=== PATIENT | female | born 2000 | race Caucasian/White ===

== ENCOUNTER 2020-01-18 19:57 | Emergency (ER) | payer OTHER, SELFPAY ==
--- NOTE | ~2020-01-18 | CT_ITS ---
EXAMINATION: CT abdomen pelvis wo con DATE: 01/18/2020 20:37 INDICATION: Left flank pain TECHNIQUE: Computed tomography (CT) of the abdomen and pelvis was performed without intravenous contr ast. Automated exposure control and iterative reconstruction technique were employed. Exam dose: 133 8.75 mGy-cm total exam DLP. COMPARISON: None. FINDINGS: Normal heart size. No pericardial or pleural effusion. The liver, spleen, pancreas, and adrenal glands are unremarkable. No bile duct or pancreatic duct dil atation. There is a pinpoint nonobstructing left renal calculus. No other urinary tract calculus or hydrouret eronephrosis. No apparent renal space occupying mass lesion is evident on this limited noncontrast examination. Normal caliber of the abdominal aorta. No intraperitoneal or retroperitoneal or pelvic mass lesion or adenopathy or ascites. Normal appendix. No bowel obstruction or bowel wall thickening or pneumatosis. No intraperitoneal f ree air. The urinary bladder, uterus and adnexal areas are normal. Included skeletal structures are unremarkable. IMPRESSION: Pinpoint nonobstructing left renal calculus Reviewed, dictated and finalized at [facility]. Reviewed, dictated and finalized at [facility].
--- NOTE | ~2020-01-18 | CT_ITS ---
EXAMINATION: CTA chest DATE: 01/18/2020 21:51 INDICATION: Chest pain with inspiration TECHNIQUE: Computed tomography angiography (CTA) of the chest was performed with 100 mL Omnipaque-350 intravenous contrast timed to evaluate the pulmonary arteries. Coronal maximum intensity projection 3D-reconstructions were created by the technologist. Automated exposure control and iterative reconst ruction technique were employed. Exam dose: 788.58 mGy-cm total exam DLP. COMPARISON: None. FINDINGS: There is diagnostic contrast enhancement of the pulmonary arteries and no evidence of pulmo nary embolism. No thoracic aortic aneurysm or dissection. Normal heart size. No pericardial or pleural effusion. The lungs are clear of infiltrate or consolidation. No hilar or mediastinal mass lesion or lymphadenopathy. IMPRESSION: Negative examination Reviewed, dictated and finalized at [facility]. Reviewed, dictated and finalized at [facility]. IMPRESSION: Negative examination
[2020-01-18 20:03] VITALS: BP 151/106; PULSE 110; RESP 22; TEMP 36.4; O2SAT 100
--- NOTE | 2020-01-18 20:12 | ED.ABDPAIN ---
HPI - Abdominal Pain General Chief Complaint: Abdominal Pain Stated Complaint: abdominal pain Time Seen by Provider: 01/18/20 20:00 History of Present Illness HPI narrative: Patient is a 19-year-old female presents ER with abdominal pain. Sudden onset at 6:30 PM. Left upper quadrant and epigastrium. Radiates to her back. Sharp and stabbing. Associate with nausea and vomiting. No urinary symptoms. Has not had similar pain before. She had eaten about 15 minutes prior to onset of pain. Related Data Allergies Allergy/AdvReac Type Severity Reaction Status Date / Time No Known Allergies Allergy Verified 01/18/20 20:13 Review of Systems Review of Systems: All systems reviewed & are unremarkable except as noted in HPI and below Constitutional: Constitutional: Denies chills, Denies fever(s) and Denies weakness Gastrointestinal: Gastrointestinal: Reports abdominal pain, Denies diarrhea, Reports nausea and Reports vomiting Genitourinary: Genitourinary: Denies hematuria, Denies nocturia and Denies dysuria PMFSH Past Medical History Medical History (Updated 01/18/20 @ 22:34 by Juan M Álvarez MD) Healthy female adult Surgical History Surgical History (Updated 01/18/20 @ 20:16 by Juan M Álvarez MD) Hx of myringotomy Social History Social History (Updated 01/18/20 @ 20:16 by Juan M Álvarez MD) Smoking status: Never smoker Gender identity (if verbalized by the patient): Female Exam Narrative: Exam Narrative: GENERAL: Well-appearing, well-nourished, and in no acute distress. HEAD: Normocephalic, atraumatic. ENT:Mucous membranes moist. CHEST: Clear to auscultation. No respiratory distress. HEART: Tachycardic and regular. Normal peripheral pulses. ABDOMEN: Soft, mild tenderness to the LUQ w/o guarding, nondistended. EXTREMITIES: Normal range of motion. No edema. NEURO: Alert and oriented x3. PSYCH: Normal mood and affect. Course Course Emergency Course: Patient also feeling discomfort in her left back and pain is worse with deep breaths. Work-up has been unremarkable and she has persistent pain despite her receiving Toradol. Will rule out PE with CTA. Reevaluation(s) Reevaluation #1: W/u unremarkable. D/c home. Recommed gas-x. Date: 01/18/20 Time: 22:33 Vital Signs Vital signs: Vital Signs Temperature 97.5 F L 01/18/20 20:03 Pulse Rate 110 H 01/18/20 20:03 Respiratory Rate 22 H 01/18/20 20:03 Blood Pressure 151/106 H 01/18/20 20:03 Pulse Oximetry 100 01/18/20 20:03 Temperature 97.5 F L 01/18/20 20:03 Pulse Rate 75 01/18/20 21:36 Respiratory Rate 18 01/18/20 21:36 Blood Pressure 126/69 01/18/20 21:36 Pulse Oximetry 99 01/18/20 21:36 MDM - Abdominal Pain Lab Data Result diagrams: 01/18/20 20:13 01/18/20 20:13 Labs: Lab Results 01/18/20 01/18/20 01/18/20 Range/Units 20:13 20:13 20:30 WBC 13.0 H (4.5-10.0) K/mm3 RBC 4.64 (4.2-5.4) M/mm3 Hgb 13.0 (12.0-15.0) g/dL Hct 38.4 (37.0-47.0) % MCV 82.8 (80-100) fl MCH 28.0 (26-34) pg MCHC 33.9 (32-36) g/dl RDW 13.1 (11.5-14.5) % Plt Count 374 (150-375) k/mm3 MPV 10.2 (7.4-10.4) fl Immature Gran % (Auto) 0.3 (0-0.5) % Neut % (Auto) 58.3 (45.5-73.1) % Lymph % (Auto) 33.5 (18.3-44.2) % [place] % (Auto) 6.7 (2.6-8.5) % Eos % (Auto) 0.8 (0-4.4) % Baso % (Auto) 0.4 (0.2-1.2) % Lymph # (Auto) 4.34 H (0.9-3.2) K/mm3 [place] # (Auto) 0.9 H (0.1-0.6) K/mm3 Eos # (Auto) 0.1 (0-0.3) K/mm3 Baso # (Auto) 0.1 (0.0-0.1) K/mm3 Abs Immat Gran (auto) 0.04 H (0.00-0.031) K/mm3 Absolute Neuts (auto) 7.6 H (1.3-6.7) K/mm3 Absolute Nucleated RBC 0.0 (0.0-0.012) K/mm3 Nucleated RBC % 0.0 (0.0-0.2) % Atypical Lymphocytes Present Platelet Estimate Adequate (Adequate) Sodium 140 (137-145) mmol/L Potassium 3.8 (3.4-5.0) mmol/L Chloride 105 (98-107) mmol/L Carbon
[2020-01-18 20:20] LABS: Basophils Absolute Auto 0.1 K/mm3 (0.0-0.1); Basophils Percent Auto 0.4 % (0.2-1.2); Eosinophils Absolute Auto 0.1 K/mm3 (0-0.3); Eosinophils Percent Auto 0.8 % (0-4.4); Hematocrit 38.4 % (37.0-47.0); Immature Granulocyte Absolute 0.04 K/mm3 (0.00-0.031); Immature Granulocyte Percent A 0.3 % (0-0.5); Lymphocytes Absolute Auto 4.34 K/mm3 (0.9-3.2); Lymphocytes Percent Auto 33.5 % (18.3-44.2); Mean Corpuscular HGB Conc 33.9 g/dl (32-36); Mean Corpuscular Volume 82.8 fl (80-100); Mean Platelet Volume 10.2 fl (7.4-10.4); Monocytes Absolute Auto 0.9 K/mm3 (0.1-0.6); Monocytes Percent Auto 6.7 % (2.6-8.5); Neutrophils Absolute Auto 7.6 K/mm3 (1.3-6.7); Neutrophils Percent Auto 58.3 % (45.5-73.1); Platelet Count Result 374 k/mm3 (150-375); Red Blood Count 4.64 M/mm3 (4.2-5.4); Red Cell Distribution Width 13.1 % (11.5-14.5)
[2020-01-18] MEDS: ONDANSETRON INJ 4 MG/2 ML VIAL IV PUSH (20:25)
[2020-01-18] MEDS: SODIUM CHLORIDE 0.9% IV 1,000 ML 999 ML IV CONT (20:25)
[2020-01-18] MEDS: KETOROLAC 30 MG/ML VIAL (*BKC) IV PUSH (20:26)
[2020-01-18 20:32] LABS: Alanine Aminotransferase 24 U/L (4-35); Albumin Level 4.5 g/dL (3.5-5.1); Alkaline Phosphatase 70 U/L (38-126); Anion Gap 8 mmol/L (8-16); Aspartate Amino Transferase 24 U/L (14-36); Bilirubin,Total 0.2 mg/dL (0.2-1.3); Blood Urea Nitrogen 8 mg/dL (7-17); Calcium 9.2 mg/dL (8.4-10.2); Carbon Dioxide 27 mmol/L (22-30); Chloride 105 mmol/L (98-107); Estimated CRCL calculation 137 ml/min; Estimated Glomerular Filt Rate > 60; Glucose 98 mg/dL (65-105); Lipase 46 U/L (23-300); Potassium 3.8 mmol/L (3.4-5.0); Sodium 140 mmol/L (137-145)
[2020-01-18 20:36] LABS: Add Urine Microscopic? NO; Appearance Urine Clear (Clear); Bilirubin Urine Negative (Negative); Blood Urine Negative (Negative); Color Urine Straw (Yellow); Glucose Urine UA Negative (Negative); Ketones Urine Negative (Negative); Leukocyte Esterase Ur Negative LEU/UL (Negative); Nitrate Urine Negative (Negative); Protein Urine Negative (Negative); Specific Grav Ur 1.006 (1.001-1.035); Urobilinogen Urine Negative mg/dL (<2.0)
[2020-01-18 20:42] LABS: Atypical Lymphocytes Present; Platelet Estimate Adequate (Adequate)
[2020-01-18 21:36] VITALS: BP 126/69; PULSE 75; RESP 18; O2SAT 99
[2020-01-18] MEDS: MORPHINE SULFATE 4 MG/ML INJ IV PUSH (21:55)
[2020-01-18 22:46] VITALS: BP 124/67; PULSE 69; RESP 18; O2SAT 99
== END 2020-01-18 22:49 | disposition home or self-care (01) ==
PROVIDERS: Emergency Provider Emergency Medicine; PCP Physician Assistant
DX: R14.0 Abdominal distension (gaseous) (principal); R10.12 Left upper quadrant pain; R10.13 Epigastric pain
CPT/HCPCS: 36415; 71275; 74176; 80053; 81003; 81025; 83690; 85025; 96361; 96374; 96375; 99284; J1885; J2270; J2405; J7030; Q9967

== ENCOUNTER 2020-04-22 12:44 | Outpatient (CLI) | payer MEDICAID, SELFPAY ==
--- NOTE | ~2020-04-22 | US_ITS ---
EXAMINATION: US OB <= 14 weeks fetus DATE: 04/22/2020 13:17 INDICATION: Gestational dating TECHNIQUE: Real-time transabdominal and transvaginal obstetric ultrasound. FINDINGS: No prior studies for comparison. The uterus measures 9.9 x 7.5 x 5.9 cm. There is an intrauterine gestational sac, with pole nicole ntified. The crown rump length measures 2.87 cm, which correlates with a estimated gestational age o f 9 weeks 5 days. heart tones are identified measuring 173 BPM. The ovaries are within normal limits. IMPRESSION: 1. SL IUP with an EGA of 9 weeks, 5 days (EDC by current ultrasound of 11/20/2020). Reviewed, dictated and finalized at location B. N WASHER IMPRESSION: 1. SL IUP with an EGA of 9 weeks, 5 days (EDC by current ultrasound of 11/21/19 21).
== END 2020-04-22 12:45 | disposition home or self-care (01) ==
PROVIDERS: PCP Physician Assistant; Visit Provider Obstetrics & Gynecology
DX: Z34.91 Encounter for supervision of normal pregnancy, unspecified, first trimester (principal); Z3A.09 9 weeks gestation of pregnancy
CPT/HCPCS: 76801

== ENCOUNTER 2020-08-08 16:47 | Observation (INO) | payer OTHER, SELFPAY ==
--- NOTE | ~2020-08-08 | US_ITS ---
EXAMINATION: US OB follow up EXAM DATE: 08/08/2020 17:39 INDICATION: Estimated weight and well-being. Vaginal bleeding. 2nd trimester. TECHNIQUE: Pelvic obstetrical transabdominal sonogram was performed by a technologist. There are mu ltiple grayscale and Doppler images available for interpretation. Comparison is made to prior examina tion from 04/22/2020. FINDINGS: There is a single fetus identified in vertex presentation with a heart rate of 155 beats pe r minute. Placental tissue identified in anterior fundal position. There is no sonographic evidence of retroplacental hemorrhage identified. There is subjectively expected amount of amniotic fluid. BIOMETRIC DATA: Biparietal diameter (BPD): 6.5 cm ----------------> 26 weeks 1 day. Head circumference (HC): 22.1 cm ----------------> 24 weeks 1 day. Abdominal circumference (AC): 21.5 cm ----------> 26 weeks 0 days. Femur length (FL): 5.0 cm --------------------------> 27 weeks 0 days. These measurements are discordant, HC/AC ratio of 1.02. (The 5th -- 95th percentile range is 1.04-1. 22. Estimated weight is 904 g +/- 136 g. This is the 84th percentile when the currently reported c linical gestation age 25 weeks 1 day, clinical estimated date of delivery (OVIDIO-OPE) 11/20 is used. Feta l estimated gestational age based on measurements from this exam is 25 weeks 6 days, with an estimate d date of delivery (OVIDIO-AUA) 11/15. IMPRESSION: 1. Single fetus in vertex presentation with heart rate 155 beats per minute. 2. Estimated weight of 904 grams, 84th percentile using the currently reported clinical gestat ion age of 25 weeks 1 day, OVIDIO(OPE) 11/20. 3. HC/AC ratio 2 standard deviations below expected range. Reviewed, dictated and finalized at location A. IMPRESSION: 1. Single fetus in vertex presentation with heart rate 155 beats per minute. 2. Estimated weight of 904 grams, 84th percentile using the currently re ported clinical gestation age of 25 weeks 1 day, OVIDIO(OPE) 7/. 3. HC/AC ratio 2 standard deviations below expected range.
[2020-08-08 17:12] VITALS: BP 124/66; PULSE 89
--- NOTE | 2020-08-08 17:15 | PC.NURSE ---
called Dr Nam notified pt admission and clarification of order.ultrasound order received for well being and EFW. okay to discharge after confirmed baby well being.
--- NOTE | 2020-08-12 06:52 | PM.OBTRLD ---
OB - Triage/Final Diagnosis Visit Information Comments/Additional reasons for admission: I have assessed the risk for this patient, Justine Madrid, and determined that she would benefit from observation care. Final Diagnosis (1) Decreased movement: Code(s): O36.8190 - Decreased movements, unspecified trimester, not applicable or unspecified Status: Acute
== END 2020-08-08 18:00 | disposition home or self-care (01) ==
PROVIDERS: Admitting Provider Obstetrics & Gynecology; PCP Physician Assistant; Visit Provider Obstetrics & Gynecology
DX: O36.8130 Decreased fetal movements, third trimester, not applicable or unspecified (principal); Z3A.25 25 weeks gestation of pregnancy; Z37.0 Single live birth
CPT/HCPCS: 76816; G0378; G0379

== ENCOUNTER 2020-09-16 15:16 | Outpatient (CLI) | payer OTHER, SELFPAY ==
--- NOTE | ~2020-09-16 | US_ITS ---
EXAMINATION: US OB follow up DATE: 09/16/2020 15:47 INDICATION: Encounter for supervision of normal during third trimester TECHNIQUE: Real-time ultrasound of the pelvis was performed. The interpreting radiologist was not pre sent for the study. COMPARISON: 08/08/2020 FINDINGS: There is a single living fetus in vertex presentation. The placenta is anterior. heart rate is 155 beats per minute (bpm). The amniotic fluid index is 15.5 cm, which is normal (5th%-95%: 9.0-23. 4 cm at 30 weeks estimated gestational age) . The following biometric data were obtained: BPD: 7.5 cm -> 30 weeks 1 days Head circumference: 27.8 cm -> 30 weeks 3 days Abdominal circumference: 25.1 cm -> 29 weeks 2 days Femur length: 5.8 cm -> 30 weeks 1 days These measurements are concordant. Head circumference to abdominal circumference ratio: 1.11 (normal range 0.97-1.19). Estimated weight: 1450 g (+/-) 218 g. or 3 lbs. 3 oz. (+/-) 8 oz. IMPRESSION: 1. Single living fetus in vertex presentation with heart rate of 155 bpm. 2. Normal amniotic fluid index measuring 15.5 cm. 3. Estimated weight is 13th percentile by Hadlock criteria when 11/20/2020 is used as the estimat ed date of delivery (OVIDIO). Please correlate with clinical information or earlier ultrasounds for most accurate OVIDIO. Reviewed, dictated and finalized at location A. IMPRESSION: 1. Single living fetus in vertex presentation with heart rate of 155 bpm. 2. Normal amniotic fluid index measuring 15.5 cm. 3. Estimated weight is 13th percentile by Hadlock criteria when 11/20/2020 is used as the estimated date of delivery (OVIDIO). Please correlate with clinical information or earlier ultrasounds for most accurate OVIDIO.
== END 2020-09-16 15:17 | disposition home or self-care (01) ==
PROVIDERS: PCP Physician Assistant; Visit Provider Obstetrics & Gynecology
DX: Z34.90 Encounter for supervision of normal pregnancy, unspecified, unspecified trimester (principal); Z3A.00 Weeks of gestation of pregnancy not specified
CPT/HCPCS: 76816

== ENCOUNTER 2020-11-13 06:52 | Observation (INO) | payer OTHER, MEDICAID, SELFPAY ==
[2020-11-13 07:30] VITALS: BMI 43.7
--- NOTE | 2020-11-13 07:30 | OBADM ---
This patient, Justine Madrid, admitted to the OB room Labor/Delivery/Recovery 120 for observation. Patient/family oriented to hospital policies and general routines including ID bracelet, bed and alarms, visiting hours, pain management, procedures, bathroom and other care routines, personal items, smoking policy, room service/diet, and visiting hours. Patient/Family are encouraged to report perceived risks to care and to ask questions if they do not understand what they are told or what they should do. See OBIX for documentation.
--- NOTE | 2020-11-17 19:58 | PM.OBTRLD ---
OB - Triage/Final Diagnosis Visit Information Comments/Additional reasons for admission: I have assessed the risk for this patient, Justine Madrid, and determined that she would benefit from observation care. Final Diagnosis (1) False labor: Code(s): O47.9 - False labor, unspecified Status: Acute
--- NOTE | 2020-11-18 06:50 | P.HPUP_ITS ---
History and Physical Update Update Date/Time: 11/18/20 0650 History and Physical has been reviewed, including an updated exam of the patient. There are NO changes in the patient's condition. Risks, benefits, and alternatives have been discussed and questions answered. Patient agrees to proceed with procedure. 20 yo primigravida presents for elective primary c section for CPD as evaluated by abnormal pelvic index at [id number].She has a h/o of FGR, MTHFR, dep ression and obesity.Pelvimetry and ultrasound confirmed contracted pelvic outlet.i explained her condition procedure and risks including but not limited to bleeding infection injury to bladder bowel baby dvt pneumonia wound infection uti post hemorrhage endometritis and risk of anesthesia.
--- NOTE | 2020-11-18 08:47 | PM.IMHP ---
H&P: HPI History of Present Illness Date/Time: 11/17/20 20:02 20 yo primigravida presents for elective primary c section for CPD as evaluated by abnormal pelvic index at [id number].She has a h/o of FGR, MTHFR, depression and obesity.Pelvimetry and ultrasound confirmed contracted pelvic outlet.i explained her condition procedure and risks including but not limited to bleeding infection injury to bladder bowel baby dvt pneumonia wound infection uti post hemorrhage endometritis and risk of anesthesia. Chief Complaint: term cpd elective c section Review of Systems Review of Systems: All systems reviewed & are unremarkable except as noted in HPI and below Constitutional: Constitutional: Reports no additional constitutional complaints Eyes: Eyes: Reports no additional eye complaints ENT: Reports system reviewed and no additional complaints, except as documented Cardiovascular: Cardiovascular: Reports no additional cardiovascular complaints Respiratory: Respiratory: Reports no additional respiratory complaints Gastrointestinal: Gastrointestinal: Reports no additional gastrointestinal complaints Genitourinary: Genitourinary: Reports no additional female genitourinary complaints Musculoskeletal: Musculoskeletal: Reports no additional musculoskeletal complaints Integumentary/Breasts: Skin/Breast: Reports system reviewed and no additional complaints, except as docu Neurologic: Reports system reviewed and no additional complaints, except as documented Psychiatric: Psychiatric: Reports no additional psychiatric complaints Endocrine: Endocrine: Reports no additional endocrine complaints Hematologic/Lymphatic: Hematologic/Lymphatic: Reports no additional hematologic/lymphatic complaints Allergic/Immunologic: Allergic/Immunologic: Reports no additional allergic/immunologic complaints [facility] Past Medical History Medical History (Updated 11/17/20 @ 20:35 by Julius Nam MD) 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) KEENAN (generalized anxiety disorder) GBS (group B streptococcus) infection Healthy female adult MDD (major depressive disorder) Obesity, morbid Outlet contraction of pelvis Surgical History Surgical History Hx of myringotomy Family History Family History Father Diabetes mellitus Hypertension Mother Diabetes mellitus Hypertension Social History Social History (Updated 11/17/20 @ 20:28 by Julius Nam MD) Smoking status: Never smoker Substance use: never Living arrangements: with family Occupation/Education: occupation Additional occupation/education comments: [employer] Gender identity (if verbalized by the patient): Female Sexual Orientation (if Verbalized by the Patient): Straight or Heterosexual Spiritual care concerns: No Agree to blood products: Yes Meds Home Medications and Allergies Home Medications Medication Instructions Recorded Confirmed Type PNV cmb#95-ferrous fumarate-FA 1 tablet PO DAILY 10/21/20 11/13/20 History [] aspirin 81 mg PO DAILY 10/21/20 11/13/20 History folic acid 1 mg PO DAILY 10/21/20 11/13/20 History progesterone micronized 200 mg PO BID 10/21/20 11/13/20 History Allergies Allergy/AdvReac Type Severity Reaction Status Date / Time No Known Allergies Allergy Verified 01/18/20 20:13 Exam Const: General: cooperative, healthy appearing, comfortable, no acute distress, well developed, alert, awake and Physically active Nutritional Appearance: average body habitus and obese Orientation/consciousness: patient oriented x3 HENMT: Head: normal to inspection Eyes: General: appearance normal, both eyes and all related structures Neck: Neck: normal visual inspection and full ROM Chest: Chest palpation & inspection: normal inspection of the chest Breast/ax
--- NOTE | 2020-11-18 08:48 | WPDOBADMIT ---
Obstetrics - Admit Note Admission Note: record reviewed. No pertinent additions to the history and/or any subsequent changes in the physical findings that are not consistent with the expected course of the were found. Additions to the history and/or subsequent changes in the physical findings follow. None. 20 yo primigravida presents for elective primary c section for CPD as evaluated by abnormal pelvic index at [id number].She has a h/o of FGR, MTHFR, depression and obesity.Pelvimetry and ultrasound confirmed contracted pelvic outlet.i explained her condition procedure and risks including but not limited to bleeding infection injury to bladder bowel baby dvt pneumonia wound infection uti post hemorrhage endometritis and risk of anesthesia.
--- NOTE | 2020-11-18 08:49 | PM.OBPRVD ---
OB - Delivery Note Procedure Delivery date: 11/18/20 Procedure: primary low-transverse section with delivery of viable and placenta Intrapartal events: Ceph-Pelvic Disproportion Induction method: none Delivery monitor: none Route of delivery: Episiotomy description: None Laceration Description: None Specimen: Yes Anesthesia type: Spinal Disposition: floor
--- NOTE | 2020-11-18 08:50 | W.PM.PROC2 ---
Procedure Note - Detailed Date of Procedure 11/18/20 Pre-op Diagnosis 1) Term : Code(s): Z34.90 - Encounter for supervision of normal , unspecified, unspecified trimester Status: Acute (2) CPD (cephalo-pelvic disproportion): Code(s): O33.9 - Maternal care for disproportion, unspecified Status: Acute (3) Outlet contraction of pelvis: Code(s): O33.3XX0 - Maternal care for disproportion due to outlet contraction of pelvis, not applicable or unspecified Status: Acute (4) Compound heterozygous MTHFR mutation [id number]/[id number]: Code(s): Z15.89 - Genetic susceptibility to other disease Status: Acute (5) Obesity, morbid: Code(s): E66.01 - Morbid (severe) obesity due to excess calories Status: Acute (6) GBS (group B streptococcus) infection: Code(s): A49.1 - Streptococcal infection, unspecified site Status: Acute (7) Delivery by elective section: Code(s): Post-op Diagnosis same (1) Term : Code(s): Z34.90 - Encounter for supervision of normal , unspecified, unspecified trimester Status: Acute (2) CPD (cephalo-pelvic disproportion): Code(s): O33.9 - Maternal care for disproportion, unspecified Status: Acute (3) Outlet contraction of p) Procedure Performed primary low-transverse section with delivery of viable infant and placenta Surgeon Julius Nam MD Reproduction Production Manager surgical scrub technologist x2 Anesthesia spinal ( Duramorph) Indications CPD abnormal pelvic index radiographic pelvimetry and ultrasound confirmed Implants none Drains Yes ( Munoz) Packing No Pathology yes ( placenta, cord blood gases, cord blood) Complications None Condition stable Disposition floor
--- NOTE | 2020-11-18 08:54 | PM.OBDSVD ---
DS: Admitting Diagnosis Admitting Diagnosis Admitting Diagnosis: 1) Term : Code(s): Z34.90 - Encounter for supervision of normal , unspecified, unspecified trimester Status: Acute (2) CPD (cephalo-pelvic disproportion): Code(s): O33.9 - Maternal care for disproportion, unspecified Status: Acute (3) Outlet contraction of pelvis: Code(s): O33.3XX0 - Maternal care for disproportion due to outlet contraction of pelvis, not applicable or unspecified Status: Acute (4) Compound heterozygous MTHFR mutation C677T/[id number]: Code(s): Z15.89 - Genetic susceptibility to other disease Status: Acute (5) Obesity, morbid: Code(s): E66.01 - Morbid (severe) obesity due to excess calories Status: Acute (6) GBS (group B streptococcus) infection: Code(s): A49.1 - Streptococcal infection, unspecified site Status: Acute (7) Delivery by elective section: Code(s): DS: Discharge Diagnosis Discharge Diagnosis (1) Term delivered: Code(s): O80 - Encounter for full-term uncomplicated delivery Status: Acute (2) CPD (cephalo-pelvic disproportion): Code(s): O33.9 - Maternal care for disproportion, unspecified Status: Acute (3) Delivery by elective section: Code(s): O82 - Encounter for delivery without indication Status: Acute (4) Outlet contraction of pelvis: Code(s): O33.3XX0 - Maternal care for disproportion due to outlet contraction of pelvis, not applicable or unspecified Status: Acute (5) FGR ( growth retardation): Status: Acute (6) KEENAN (generalized anxiety disorder): Code(s): F41.1 - Generalized anxiety disorder Status: Acute (7) MDD (major depressive disorder): Code(s): F32.9 - Major depressive disorder, single episode, unspecified Status: Acute (8) GBS (group B streptococcus) infection: Code(s): A49.1 - Streptococcal infection, unspecified site Status: Acute (9) Obesity, morbid: Code(s): E66.01 - Morbid (severe) obesity due to excess calories Status: Acute (10) Compound heterozygous MTHFR mutation C677T/J4160V: Code(s): Z15.89 - Genetic susceptibility to other disease Status: Acute OB - DS: Summary Hospital Course Time spent discussing smoking cessation with patient: 3 to 10 minutes OB Procedures : Ultrasound OB Procedures Intrapartum: ( primary elective) low cervical, transverse and GBS prophylaxis OB Procedures: : None Peripartum Data Infant Delivery Method: Section ( primary low-transverse elective) Laceration Description: None Episiotomy description: None complications: none 1: Disposition of : home Time Spent with Patient Time attestation: Total time spent providing and/or coordinating discharge services: Discharge Plan Discharge Attending physician on discharge: Julius Nam Discharging Clinician: Julius Nam Patient Disposition: Home, Self-Care Activity: as tolerated Diet: other - see discharge instructions Discharge Instructions: OB ANTEPARTUM DISCHARGE INSTRUCTIONS This information is given to help you properly care for yourself at home after your discharge from the hospital. Follow these instructions until your doctor tells you otherwise. DIET: May eat light meals while still contractin. If contractions become irregular may go back to eating Three Well Balanced Meals per Day Drink at Least Eight 8-Ounce Glasses of Caffeine-Free Beverages Daily ACTIVITY: As Tolerated RETURN TO LABOR AND DELIVERY IF YOU HAVE: Any Change In Baby's Normal Movement Pattern Any Leakage of Fluid Contractions 3-5 Minutes Apart OR Increasing Intensity Vaginal Bleeding Contractions may feel like abdominal pain, tightening, cramping, pressure, back ache, or thigh ache. OTHER INSTRUCTIONS:
== END 2020-11-13 10:26 | disposition home or self-care (01) ==
PROVIDERS: Admitting Provider Obstetrics & Gynecology; PCP Physician Assistant; Visit Provider Obstetrics & Gynecology
DX: O47.9 False labor, unspecified (principal); Z3A.00 Weeks of gestation of pregnancy not specified
CPT/HCPCS: G0378; G0379

== ENCOUNTER 2020-11-18 06:52 | Inpatient (IN) | payer OTHER, MEDICAID, SELFPAY ==
--- NOTE | 2020-11-17 20:35 | HP_ITS ---
This report was moved to the correct visit, [id number] on 11/18/20. Original report was signed by Julius Nam MD on 11/18/20 0650. ADDENDUM update v code Addendum Documented By: Julius Nam MD 11/18/20 0848 Addendum Signed By: <Electronically signed by Julius Nam MD>11/18 0848 H&P: HPI History of Present Illness Date/Time: 11/17/20 20:02 20 yo primigravida presents for elective primary c section for CPD as evaluated by abnormal pelvic index at 72lvs0m.She has a h/o of FGR, MTHFR, depression and obesity.Pelvimetry and ultrasound confirmed contracted pelvic outlet.i explained her condition procedure and risks including but not limited to bleeding infection injury to bladder bowel baby dvt pneumonia wound infection uti post hemorrhage endometritis and risk of anesthesia. Chief Complaint: term cpd elective c section Review of Systems Review of Systems: All systems reviewed & are unremarkable except as noted in HPI and below Constitutional: Constitutional: Reports no additional constitutional complaints Eyes: Eyes: Reports no additional eye complaints ENT: Reports system reviewed and no additional complaints, except as documented Cardiovascular: Cardiovascular: Reports no additional cardiovascular complaints Respiratory: Respiratory: Reports no additional respiratory complaints Gastrointestinal: Gastrointestinal: Reports no additional gastrointestinal complaints Genitourinary: Genitourinary: Reports no additional female genitourinary complaints Musculoskeletal: Musculoskeletal: Reports no additional musculoskeletal complaints Integumentary/Breasts: Skin/Breast: Reports system reviewed and no additional complaints, except as docu Neurologic: Reports system reviewed and no additional complaints, except as documented Psychiatric: Psychiatric: Reports no additional psychiatric complaints Endocrine: Endocrine: Reports no additional endocrine complaints Hematologic/Lymphatic: Hematologic/Lymphatic: Reports no additional hematologic/lymphatic complaints Allergic/Immunologic: Allergic/Immunologic: Reports no additional allergic/immunologic complaints [facility] Past Medical History Medical History (Updated 11/17/20 @ 20:35 by Julius Nam MD) Compound heterozygous MTHFR mutation 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) KEENAN (generalized anxiety disorder) GBS (group B streptococcus) infection Healthy female adult MDD (major depressive disorder) Obesity, morbid Outlet contraction of pelvis Surgical History Surgical History Hx of myringotomy Family History Family History Father Diabetes mellitus Hypertension Mother Diabetes mellitus Hypertension Social History Social History (Updated 11/17/20 @ 20:28 by Julius Nam MD) Smoking status: Never smoker Substance use: never Living arrangements: with family Occupation/Education: occupation Additional occupation/education comments: [employer] Gender identity (if verbalized by the patient): Female Sexual Orientation (if Verbalized by the Patient): Straight or Heterosexual Spiritual care concerns: No Agree to blood products: Yes Meds Home Medications and Allergies Home Medications Medication Instructions Recorded Confirmed Type PNV cmb#95-ferrous fumarate-FA 1 tablet PO DAILY 10/21/20 11/13/20 History
[2020-11-18] VITALS (64 sets, daily range): BP systolic 100–143; BP diastolic 49–100; PULSE 56–291; RESP 16–18; TEMP 36.2–36.8; O2SAT 83–100; BMI 44.3
--- NOTE | 2020-11-18 06:50 | HP_ITS ---
This report was moved to the correct visit, [id number] on 11/18/20. Original report was signed by Julius Nam MD on 11/17/20650. History and Physical Update Update Date/Time: 11/18/20649 History and Physical has been reviewed, including an updated exam of the patient. There are NO changes in the patient's condition. Risks, benefits, and alternatives have been discussed and questions answered. Patient agrees to proceed with procedure. 20 yo primigravida presents for elective primary c section for CPD as evaluated by abnormal pelvic index at 32zyu1t.She has a h/o of FGR, MTHFR, depression and obesity.Pelvimetry and ultrasound confirmed contracted pelvic outlet.i explained her condition procedure and risks including but not limited to bleeding infection injury to bladder bowel baby dvt pneumonia wound infection uti post hemorrhage endometritis and risk of anesthesia. This dictation may have been done utilizing a voice recognition system. Attempts have been made to correct errors. However, there may be uncorrected grammatical, spelling, and recognition errors present. Report Initialized date/time: Julius Nam MD 11/17/202038 Electronically signed by: Julius Nam MD 11/18/20650 [facility]
[2020-11-18] MEDS: LACTATED RINGERS 1,000 ML 125 ML IV CONT ×2 (07:34→08:38)
[2020-11-18 07:35] LABS: Basophils Percent Auto 0.3 % (0.2-1.2); Eosinophils Absolute Auto 0.1 K/mm3 (0-0.3); Eosinophils Percent Auto 0.7 % (0-4.4); Hematocrit 35.5 % (37.0-47.0); Hemoglobin 12.2 g/dL (12.0-15.0); Immature Granulocyte Absolute 0.08 K/mm3 (0.00-0.031); Immature Granulocyte Percent A 0.6 % (0-0.5); Lymphocytes Absolute Auto 2.91 K/mm3 (0.9-3.2); Lymphocytes Percent Auto 20.9 % (18.3-44.2); Mean Corpuscular HGB Conc 34.4 g/dl (32-36); Mean Corpuscular Hemoglobin 29.4 pg (26-34); Mean Corpuscular Volume 85.5 fl (80-100); Mean Platelet Volume 11.2 fl (7.4-10.4); Monocytes Absolute Auto 0.9 K/mm3 (0.1-0.6); Monocytes Percent Auto 6.2 % (2.6-8.5); Neutrophils Absolute Auto 9.9 K/mm3 (1.3-6.7); Neutrophils Percent Auto 71.3 % (45.5-73.1); Platelet Count Result 254 k/mm3 (150-375); Red Blood Count 4.15 M/mm3 (4.2-5.4); Red Cell Distribution Width 13.5 % (11.5-14.5); White Blood Count 13.9 K/mm3 (4.5-10.0)
--- NOTE | 2020-11-18 07:39 | LDADM ---
This patient, Justine Madrid, was admitted to Labor/Delivery/Recovery 119 on 11/18/20 at 06:52. Plans for labor, pain management and were discussed with patient. Patient/family oriented to hospital policies and general routines including ID bracelet, bed and alarms, visiting hours, pain management, procedures, bathroom and other care routines, personal items, smoking policy, room service/diet and guest tray routines, security routines, and visiting hours. Patient/Family are encouraged to report perceived risks to care and to ask questions if they do not understand what they are told or what they should do. See OBIX for further documentation.
--- NOTE | 2020-11-18 08:25 | WPDANESEPPF ---
Anes - Initial Pre Proc Eval Procedure: Operation Date: 11/18/20 09:00 Proposed Procedures p Primary Section - Julius Nam MD Date/Time: 11/18/20 08:25 Surgeon: Julius Nam MD Pre Op Diagnosis: C Section Patient Data Age: 20 Gender: F Height: 1.68 m Weight: 124.5 kg Last Vital Signs Pulse 91 11/18/20 07:46 BP 137/90 11/18/20 07:46 Allergies Allergy/AdvReac Type Severity Reaction Status Date / Time No Known Allergies Allergy Verified 01/18/20 20:13 Home Medications Medication Instructions Recorded Confirmed Type PNV cmb#95-ferrous fumarate-FA 1 tablet PO DAILY 10/21/20 11/18/20 History [] aspirin 81 mg PO DAILY 10/21/20 11/18/20 History folic acid 1 mg PO DAILY 10/21/20 11/18/20 History progesterone micronized 200 mg PO BID 10/21/20 11/18/20 History Laboratory Tests 11/18/20 11/18/20 11/18/20 07:23 07:23 07:23 WBC 13.9 K/mm3 H K/mm3 (4.5-10.0) RBC 4.15 M/mm3 L M/mm3 (4.2-5.4) Hgb 12.2 g/dL g/dL (12.0-15.0) Hct 35.5 % L % (37.0-47.0) MCV 85.5 fl fl (80-100) MCH 29.4 pg pg (26-34) MCHC 34.4 g/dl g/dl (32-36) RDW 13.5 % % (11.5-14.5) Plt Count 254 k/mm3 k/mm3 (150-375) MPV 11.2 fl H fl (7.4-10.4) Immature Gran % (Auto) 0.6 % H % (0-0.5) Neut % (Auto) 71.3 % % (45.5-73.1) Lymph % (Auto) 20.9 % % (18.3-44.2) [place] % (Auto) 6.2 % % (2.6-8.5) Eos % (Auto) 0.7 % % (0-4.4) Baso % (Auto) 0.3 % % (0.2-1.2) Lymph # (Auto) 2.91 K/mm3 K/mm3 (0.9-3.2) [place] # (Auto) 0.9 K/mm3 H K/mm3 (0.1-0.6) Eos # (Auto) 0.1 K/mm3 K/mm3 (0-0.3) Baso # (Auto) 0.0 K/mm3 K/mm3 (0.0-0.1) Abs Immat Gran (auto) 0.08 K/mm3 H K/mm3 (0.00-0.031) Absolute Neuts (auto) 9.9 K/mm3 H K/mm3 (1.3-6.7) Absolute Nucleated RBC 0.0 K/mm3 K/mm3 (0.0-0.012) Nucleated RBC % 0.0 % % (0.0-0.2) RPR Pending HIV 1&2 Ab/P24 Ag 4thGn Pending Patient hx anesthesia problems: none Family hx anesthesia problems: none [facility] Past Medical History Medical History (Updated 11/18/20 @ 08:25 by Paramjit Iverson MD) Compound heterozygous MTHFR mutation [id number] FGR ( growth retardation) KEENAN (generalized anxiety disorder) GBS (group B streptococcus) infection MDD (major depressive disorder) Obesity, morbid Outlet contraction of pelvis Surgical History Surgical History Hx of myringotomy Family History Family History Father Diabetes mellitus Hypertension Mother Diabetes mellitus Hypertension Social History Social History Smoking status: Never smoker Second hand tobacco smoke exposure: Yes Substance use: never Additional occupation/education comments: [employer] Gender identity (if verbalized by the patient): Female Spiritual care concerns: No Agree to blood products: Yes Anes - Eval Final PreProcedure Day of Procedure 11/18/20 08:25 Patient weight: morbidly obese Heart: regular rate and rhythm Lungs: clear to auscultation Airway: Mallampati scale class 1 Neurological: alert and oriented Last oral intake: >/= 8 hours ASA classification: III Emergent: no Anesthetic plan: proceed Anesthesia type and monitoring: regional spinal and standard monitoring Informed Consent: The patient's anesthetic plan and its attendant risks and benefits were discussed with the patient/family/POA. Questions were solicited and answers provided to the satisfaction of the patient/family/POA.
[2020-11-18 08:26] LABS: HIV 1/2 Ab P24 Ag Result Negative (Negative)
[2020-11-18] MEDS: ceFAZolin 3 GM/D5W 100 ML 100 ML IVPB (09:02)
[2020-11-18 09:21] LABS: Amphetamine Screen Urine Negative (Negative); Barbiturate Screen Urine Negative (Negative); Benzodiazepines Screen Urine Negative (Negative); Cannabinoid Screen Urine Negative (Negative); Cocaine Screen Urine Negative (Negative); Methadone Screen Urine Negative (Negative); Opiate Screen Urine Negative (Negative); Phencyclidine Screen Urine Negative (Negative)
--- NOTE | 2020-11-18 10:17 | PM.OBPRVD ---
OB - Delivery Note Procedure Delivery date: 11/18/20 Procedure: Procedures Operation Date: 11/18/20 09:00 Actual Procedure Side Surgeon Primary low-transverse section with delivery of viable female and placenta Julius Nam MD events: Meconium Stained Fluid Intrapartal events: Ceph-Pelvic Disproportion Induction method: none Delivery monitor: external FHT and external uterine Route of delivery: ( primary low-transverse elective) Episiotomy description: None Laceration Description: None Specimen: Yes ( placenta, cord blood, cord blood gases) Quantitative Blood Loss (ml): 325 Anesthesia type: Spinal ( Duramorph) Disposition: floor Complications: none Narrative: see detailed report Baby Date of : 11/18/20 Time of : 09:39 Weeks of gestation at delivery: 40 gender: Female Weight (pounds): 6 Weight (ounces): 10 presentation: vertex position: Left Occiput Transverse Placenta delivery description: Manual Removal and Normal Configuration cord vessel description: 3 Vessels, Nuchal Cord and Around Body x1 score one minute: 9 score five minutes: 9 Narrative: meconium stained amniotic fluid taken to the nursery in stable condition normal transition
--- NOTE | 2020-11-18 10:20 | W.PM.PROC2 ---
Procedure Note - Detailed Date of Procedure 11/18/20 Pre-op Diagnosis C Section (1) Term : Code(s): Z34.90 - Encounter for supervision of normal , unspecified, unspecified trimester Status: Acute (2) CPD (cephalo-pelvic disproportion): Code(s): O33.9 - Maternal care for disproportion, unspecified Status: Acute (3) Outlet contraction of pelvis: Code(s): O33.3XX0 - Maternal care for disproportion due to outlet contraction of pelvis, not applicable or unspecified Status: Acute (4) Compound heterozygous MTHFR mutation C677T/F5037T: Code(s): Z15.89 - Genetic susceptibility to other disease Status: Acute (5) Obesity, morbid: Code(s): E66.01 - Morbid (severe) obesity due to excess calories Status: Acute (6) GBS (group B streptococcus) infection: Code(s): A49.1 - Streptococcal infection, unspecified site Status: Acute (7) Delivery by elective section: Code(s): O82 - Encounter for delivery without indication Status: Acute Post-op Diagnosis same ((1) Term : Code(s): Z34.90 - Encounter for supervision of normal , unspecified, unspecified trimester Status: Acute (2) CPD (cephalo-pelvic disproportion): Code(s): O33.9 - Maternal care for disproportion, unspecified Status: Acute (3) Outlet contraction of ) Procedure Performed primary low-transverse section with delivery of viable female infant and placenta Surgeon Julius Nam MD Parts And Service Manager surgical services director x2 Padma and Heather Anesthesia spinal ( Duramorph) Indications abnormal pelvic index with cephalopelvic disproportion contracted pelvis outlet Findings viable female infant born at 9:39 a.m. on 11/18 2020 meconium stained amniotic fluid and membranes nuchal cord x1 cord around the body x1 spontaneous respirations and cry no observed abnormalities on the examination normal transition scores 9 and 9 at 1 and 5 minutes weight 6 lb 10 oz length 18-1/2 inches long Normal uterus tubes and ovaries Hemostasis excess VTE prevention SCD Antibiotic prophylaxis Ancef 3 g Counts correct Complications none Pathology specimen sent Patient taken to recovery room stable condition Description of Procedure informed consent obtained patient taken to the operating room where she was given a spinal anesthetic with Duramorph placed in the supine position a Munoz catheter was then placed and then a traxi device was placed in the abdomen after the abdomen was prepped and then the abdomen was draped in the usual sterile fashion. A time-out was then performed. The abdomen was tested for adequate anesthesia. A Pfannenstiel incision was then made to the skin and the abdomen was opened in layers hemostasis obtained by cauterization the fascia was entered bilateral undermined superior and inferior then the rectus muscles were in the midline and the peritoneum was entered using blunt dissection. The vesicouterine peritoneal reflection was incised transversely 8 transverse incision was made to the uterus and extended bilaterally digitally. Rupture membranes revealed meconium stained amniotic fluid. With fundal pressure vertex was then delivered via the abdominal incision with a nuchal cord x1 and the cord around the arm reduced. The nose and throat were bulb suction there spontaneous respirations and cry cord was clamped and cut and the was handed to the nursery nurse in attendance scores 9 and 9 weight 610 18-1/2 inches long taken to the nursery in stable condition skin to skin contact given. Cord gases cord blood obtained placenta was then delivered intact with three-vessel cord the uterus contracted well with Pitocin given intravenously and 10 units into the myometrium. Blood clots membranes removed from the intrauterine cavity with the uterus externalized the uterine incision was then repaired in 2 layer
[2020-11-18] MEDS: OXYTOCIN 30 UNITS/NS 500 ML 30 UNITS/500 ML BAG 125 UNITS IV CONT (10:43)
[2020-11-18 11:50] LABS: Rapid Plasma Reagin Non-Reactive (NonReactive)
[2020-11-18] MEDS: KETOROLAC 30 MG/ML VIAL (*BKC) IV PUSH ×2 (11:58→19:20)
[2020-11-18] MEDS: fentaNYL CITRATE INJ (*CRX) 100 MCG/2 ML VIAL 25 MCG IV PUSH (11:59)
--- NOTE | 2020-11-18 13:45 | PC.NURSE ---
1300-Patient transferred to post room #285 via stretcher. Support person present. Oriented to unit, room, information board, rooming in, admission packet and security measures. Patient verbalizes understanding.
--- NOTE | 2020-11-18 15:06 | PC.NURSE ---
Consult with pt., mother reports she would like to begin pumping.
--- NOTE | 2020-11-18 15:42 | PC.NURSE ---
Breast pump provided due to mother's wishes. Instructions given on breast pump care and usage, pumping schedule, nipple care, and collection and storage of breast milk. Encouraged [id number], breast massage and manual expression to stimulate supply. Assessed patient for correct flange size, placement and draw. Patient verbalizes and demonstrates understanding of instructions.
[2020-11-18] MEDS: DEXTROSE 5%/0.45% SOD CHL 1,000 ML 125 ML IV CONT (15:44)
[2020-11-18] MEDS: diphenhydrAMINE HCl INJ 50 MG/ML VIAL 25 MG IV PUSH (15:50)
[2020-11-18] MEDS: DOCUSATE SODIUM 100 MG CAPSULE PO (17:37)
[2020-11-19 03:40] VITALS: BP 106/60; PULSE 69; RESP 16; TEMP 36.3
[2020-11-19] MEDS: KETOROLAC 30 MG/ML VIAL (*BKC) IV PUSH (03:40)
[2020-11-19 05:26] LABS: Basophils Percent Auto 0.2 % (0.2-1.2); Eosinophils Absolute Auto 0.1 K/mm3 (0-0.3); Eosinophils Percent Auto 0.4 % (0-4.4); Hematocrit 31.6 % (37.0-47.0); Hemoglobin 10.4 g/dL (12.0-15.0); Immature Granulocyte Absolute 0.09 K/mm3 (0.00-0.031); Immature Granulocyte Percent A 0.7 % (0-0.5); Lymphocytes Absolute Auto 1.94 K/mm3 (0.9-3.2); Mean Corpuscular HGB Conc 32.9 g/dl (32-36); Mean Corpuscular Hemoglobin 29.5 pg (26-34); Mean Corpuscular Volume 89.5 fl (80-100); Mean Platelet Volume 11.4 fl (7.4-10.4); Monocytes Absolute Auto 0.8 K/mm3 (0.1-0.6); Neutrophils Absolute Auto 10.1 K/mm3 (1.3-6.7); Neutrophils Percent Auto 77.7 % (45.5-73.1); Platelet Count Result 204 k/mm3 (150-375); Red Blood Count 3.53 M/mm3 (4.2-5.4); Red Cell Distribution Width 13.8 % (11.5-14.5)
[2020-11-19 08:00] VITALS: BP 114/62; PULSE 95; RESP 16; TEMP 36.9; O2SAT 99
--- NOTE | 2020-11-19 08:14 | WPDANLDPN2 ---
Anes-Prog Note L&D Date/Time: 11/19/20 08:14 Comfortable throughout: section Neuraxial method: spinal Epidural/Spinal procedure site: clean & non-tender Neuro status: Neuro function grossly intact. Cardiovascular status: normal Respiratory status: normal Airway patency: baseline Mental status: baseline Post-Op hydration status: normal Vital Signs: Last Vital Signs Temp 36.9 C 11/19/20 08:00 Pulse 95 11/19/20 08:00 Resp 16 11/19/20 08:00 BP 114/62 11/19/20 08:00 Pulse Ox 99 11/19/20 08:00 Pain score (VAS): 0/10. Patient resting in bed at time of assessment, appears comfortable. Support person at bedside. I/O: Intake & Output 11/18/20 11/19/20 11/19/20 23:59 07:59 15:59 Intake Total 1135 Output Total 800 1999 Balance 335 -2000 Post-procedural complaints: none Patient feedback: Patient satisfied with anesthetic care.
--- NOTE | 2020-11-19 08:15 | WPDANLDNPN2 ---
Anes-Prog Note L&D-Neuraxial Date/Time: 11/19/20 08:15 Neuraxial medications: intrathecal PF morphine Opiod-related complaints: none Patient feedback: Patient satisfied with post-operative pain management.
--- NOTE | 2020-11-19 08:41 | PM.OBPNVD ---
OB - PN: Subj Subjective Date/time seen: 11/19/20 08:41 Patient comments: no complaints, pain well controlled, tolerating diet and flatus present baby status: doing well and nursing well [place] feeding status: exclusively breast feeding OB - PN: Obj Data Labs CBC & Chem 7: 11/19/20 03:49 Labs: Laboratory Results - last 24 hr 11/18/20 11/18/20 11/18/20 07:23 07:23 08:58 WBC RBC Hgb Hct MCV MCH MCHC RDW Plt Count MPV Immature Gran % (Auto) Neut % (Auto) Lymph % (Auto) [place] % (Auto) Eos % (Auto) Baso % (Auto) Lymph # (Auto) [place] # (Auto) Eos # (Auto) Baso # (Auto) Abs Immat Gran (auto) Absolute Neuts (auto) Absolute Nucleated RBC Nucleated RBC % Urine Opiates Screen Negative Urine Methadone Screen Negative Ur Barbiturates Screen Negative Ur Phencyclidine Scrn Negative Ur Amphetamine Screen Negative U Benzodiazepines Scrn Negative Urine Cocaine Screen Negative U Cannabinoids Screen Negative RPR Non-reactive Blood Type A Positive Antibody Screen Negative 11/19/20 03:49 WBC 13.0 H RBC 3.53 L Hgb 10.4 L Hct 31.6 L MCV 89.5 MCH 29.5 MCHC 32.9 RDW 13.8 Plt Count 204 MPV 11.4 H Immature Gran % (Auto) 0.7 H Neut % (Auto) 77.7 H Lymph % (Auto) 15.0 L [place] % (Auto) 6.0 Eos % (Auto) 0.4 Baso % (Auto) 0.2 Lymph # (Auto) 1.94 [place] # (Auto) 0.8 H Eos # (Auto) 0.1 Baso # (Auto) 0.0 Abs Immat Gran (auto) 0.09 H Absolute Neuts (auto) 10.1 H Absolute Nucleated RBC 0.0 Nucleated RBC % 0.0 Urine Opiates Screen Urine Methadone Screen Ur Barbiturates Screen Ur Phencyclidine Scrn Ur Amphetamine Screen U Benzodiazepines Scrn Urine Cocaine Screen U Cannabinoids Screen RPR Blood Type Antibody Screen OB - PN A/P Assessment and Plan (1) Term delivered: Code(s): O80 - Encounter for full-term uncomplicated delivery Status: Acute (2) Delivery by elective section: Code(s): O82 - Encounter for delivery without indication Status: Acute (3) CPD (cephalo-pelvic disproportion): Code(s): O33.9 - Maternal care for disproportion, unspecified Status: Acute Plan day: 1 Plan: routine care, discharge home and follow up 6 weeks Time Spent With Patient Time: Total time spent is greater than 50% in coordination of care (as documented) at patient's floor/unit and/or counseling patient: Time with patient: less than 15 minutes Review of Systems Review of Systems: All systems reviewed & are unremarkable except as noted in HPI and below Exam Const: General: cooperative, healthy appearing, comfortable, no acute distress, well developed, alert, awake and Physically active Nutritional Appearance: obese Orientation/consciousness: patient oriented x3 Limitations: no limitations HENMT: Head: normal to inspection Eyes: General: appearance normal, both eyes and all related structures Neck: Neck: normal visual inspection and full ROM Chest: Chest palpation & inspection: normal inspection of the chest Breast/axilla inspection: normal inspection of the breasts Resp: Effort & Inspection: normal respiratory effort Auscultation: clear to auscultation bilaterally Cardio: Rate: regular rate Rhythm: regular rhythm GI: Inspection: normal to inspection, incision (ddi) and obesity GI Palp: Yes Soft to palpation Percussion: Yes normal to percussion Auscultation: normal bowel sounds : External Female Exam: normal external appearance Bimanual exam- vagina & uterus: non-tender Back/Spine/Pelvis: Back: no CVA tenderness Skin: General skin exam: normal color Neuro: General: patient oriented x3, gait normal, tone normal, moves all extremities, Normal light touch and pain sensation and no focal motor deficits Extrem: General: normal to inspection, full ROM and n
[2020-11-19] MEDS: HYDROcodone/acetaminophen (*CRX) 5-325 MG TABLET 1 TAB PO (08:43)
[2020-11-19] MEDS: DOCUSATE SODIUM 100 MG CAPSULE PO (08:43)
[2020-11-19] MEDS: IBUPROFEN 600 MG TABLET PO ×3 (10:29→23:05)
[2020-11-19] MEDS: SIMETHICONE 80 MG TAB.CHEW PO ×3 (10:30→23:05)
[2020-11-19] MEDS: HYDROcodone/acetaminophen (*CRX) 10-325 MG TABLET 1 TAB PO ×3 (15:44→23:05)
[2020-11-19 19:10] VITALS: BP 129/77; PULSE 95; RESP 16; TEMP 36.7
[2020-11-20] MEDS: HYDROcodone/acetaminophen (*CRX) 10-325 MG TABLET 1 TAB PO (02:34)
[2020-11-20] MEDS: SIMETHICONE 80 MG TAB.CHEW PO ×2 (02:34→08:29)
[2020-11-20] MEDS: DOCUSATE SODIUM 100 MG CAPSULE PO (08:25)
[2020-11-20] MEDS: IBUPROFEN 600 MG TABLET PO (08:25)
[2020-11-20] MEDS: HYDROcodone/acetaminophen (*CRX) 5-325 MG TABLET 1 TAB PO ×2 (08:26→11:12)
[2020-11-20 08:30] VITALS: BP 138/86; PULSE 104; PULSE 6; RESP 16; TEMP 36.8; O2SAT 100
--- NOTE | 2020-11-20 10:12 | PC.NURSE ---
Patient viewed the discharge video Mother & Baby Care, The First Two Weeks . Patient was given the opportunity and encouraged to ask questions. Patient verbalized understanding of information shared and has been given the mother/baby guide for home reference.
--- NOTE | 2020-11-20 11:13 | PM.OBDSVD ---
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: Code(s): Z15.89 - Genetic susceptibility to other disease Status: Acute (5) Obesity, morbid: Code(s): E66.01 - Morbid (severe) obesity due to excess calories Status: Acute (6) GBS (group B streptococcus) infection: Code(s): A49.1 - Streptococcal infection, unspecified site Status: Acute (7) Delivery by elective section: Code(s): O82 - Encounter for delivery without indication Status: Acute Additional Plan primary low transverse c section under spinal anesthesia DS: Discharge Diagnosis Discharge Diagnosis (1) Term delivered: Code(s): O80 - Encounter for full-term uncomplicated delivery Status: Acute (2) Delivery by elective section: Code(s): O82 - Encounter for delivery without indication Status: Acute (3) FGR ( growth retardation): Status: Acute (4) Outlet contraction of pelvis: Code(s): O33.3XX0 - Maternal care for disproportion due to outlet contraction of pelvis, not applicable or unspecified Status: Acute (5) CPD (cephalo-pelvic disproportion): Code(s): O33.9 - Maternal care for disproportion, unspecified Status: Acute (6) KEENAN (generalized anxiety disorder): Code(s): F41.1 - Generalized anxiety disorder Status: Acute (7) MDD (major depressive disorder): Code(s): F32.9 - Major depressive disorder, single episode, unspecified Status: Acute (8) GBS (group B streptococcus) infection: Code(s): A49.1 - Streptococcal infection, unspecified site Status: Acute (9) Obesity, morbid: Code(s): E66.01 - Morbid (severe) obesity due to excess calories Status: Acute (10) Compound heterozygous MTHFR mutation C677T/[id number]: Code(s): Z15.89 - Genetic susceptibility to other disease Status: Acute OB - DS: Summary Hospital Course Time spent discussing smoking cessation with patient: 3 to 10 minutes OB Procedures : Ultrasound OB Procedures Intrapartum: low cervical, transverse and GBS prophylaxis OB Procedures: : None Peripartum Data Delivery Method: Section Laceration Description: None Episiotomy description: None Procedures: Procedures Operation Date: 11/18/20 09:00 <primary low transverse c section with delivery of viable female and placenta> complications: none 1: Gender: Female Disposition of : home Status at Discharge Cognitive/behavioral status at discharge: normal Functional status at discharge: independent ambulation Overall status at discharge: patient is back to baseline Time Spent with Patient Time attestation: Total time spent providing and/or coordinating discharge services: Time spent: Less than 30 minutes Exam Const: General: cooperative, healthy appearing, comfortable, no acute distress, well developed, alert, awake and Physically active Nutritional Appearance: obese morbidly obese Orientation/consciousness: patient oriented x3 Limitations: no limitations HENMT: Head: normal to inspection Eyes: General: appearance normal, both eyes and all related structures Neck: Neck: normal visual inspection Chest: Chest palpation & inspection: normal inspection of the chest Resp: Effort & Inspection: normal respiratory effort Cardio: Ra
[2020-11-22 10:00] VITALS: BP 119/65; PULSE 75; RESP 20; TEMP 36.8; O2SAT 99
== END 2020-11-20 12:06 | disposition home or self-care (01) | DRG 787 ==
LOC: ANHLDR 07:00 → ANHOB2 13:10
PROVIDERS: Admitting Provider Obstetrics & Gynecology; PCP Physician Assistant; Visit Provider Obstetrics & Gynecology
PROC: 10D00Z1 Extraction of Products of Conception, Low, Open Approach (ICD-10-PCS; CPT 59514; principal; 2020-11-18 09:00)
DX: O33.9 Maternal care for disproportion, unspecified (principal); O77.0 Labor and delivery complicated by meconium in amniotic fluid; O69.81X0 Labor and delivery complicated by cord around neck, without compression, not applicable or unspecified; O99.824 Streptococcus B carrier state complicating childbirth; O99.284 Endocrine, nutritional and metabolic diseases complicating childbirth; E72.12 Methylenetetrahydrofolate reductase deficiency; O99.214 Obesity complicating childbirth; E66.9 Obesity, unspecified; O99.344 Other mental disorders complicating childbirth; F32.9 Major depressive disorder, single episode, unspecified; Z3A.39 39 weeks gestation of pregnancy; Z37.0 Single live birth
CPT/HCPCS: 36415; 80307; 85025; 86592; 86703; 86850; 86900; 86901; 88307; A9270; G0432; J0131; J0690; J1200; J1885; J2274; J2405; J2590; J3010; J7120

== ENCOUNTER 2021-07-19 13:13 | Day surgery (SDC) | payer OTHER, SELFPAY ==
[2021-07-19] VITALS (9 sets, daily range): BP systolic 132–156; BP diastolic 71–94; PULSE 65–114; RESP 14–26; TEMP 36.1–37.2; O2SAT 97–100; BMI 44.6
--- NOTE | ~2021-07-19 | CT_ITS ---
EXAMINATION: CT abdomen pelvis w con DATE: 07/19/2021 14:42 INDICATION: Abdominal pain. Vomiting. TECHNIQUE: Computed tomography (CT) of the abdomen and pelvis was performed with 100 mL Omnipaque 350 intravenous contrast. Automated exposure control and iterative reconstruction technique were employe d. The dose-length product was 1628.71 mGy-cm. COMPARISON: CT abdomen and pelvis 01/18/2020 FINDINGS: The visualized portions of the lung bases demonstrate mild atelectasis. No pleural effusion . The heart size is normal. No pericardial effusion. There is diffuse hepatic steatosis. The gallblad zander, spleen, pancreas, adrenal glands, and kidneys are normal. The appendix is fluid-filled and dilat ed to 9 mm with surrounding fat stranding, consistent with appendicitis. There are no pathologically enlarged lymph nodes. There is no free intraperitoneal fluid. The bones are unremarkable. IMPRESSION: 1. Acute appendicitis. Reviewed, dictated and finalized at location A. CING MACHINE OPERATOR IMPRESSION: 1. Acute appendicitis.
[2021-07-19 14:11] LABS: Basophils Percent Auto 0.2 % (0.2-1.2); Eosinophils Percent Auto 0.2 % (0-4.4); Hematocrit 38.2 % (37.0-47.0); Hemoglobin 12.3 g/dL (12.0-15.0); Immature Granulocyte Absolute 0.07 K/mm3 (0.00-0.031); Immature Granulocyte Percent A 0.4 % (0-0.5); Lymphocytes Absolute Auto 2.03 K/mm3 (0.9-3.2); Lymphocytes Percent Auto 11.9 % (18.3-44.2); Mean Corpuscular HGB Conc 32.2 g/dl (32-36); Mean Corpuscular Hemoglobin 26.7 pg (26-34); Mean Platelet Volume 10.1 fl (7.4-10.4); Monocytes Absolute Auto 0.7 K/mm3 (0.1-0.6); Monocytes Percent Auto 4.3 % (2.6-8.5); Neutrophils Absolute Auto 14.1 K/mm3 (1.3-6.7); Platelet Count Result 302 k/mm3 (150-375); Red Cell Distribution Width 16.8 % (11.5-14.5)
--- NOTE | 2021-07-19 14:12 | ED.ABDPAIN ---
HPI - Abdominal Pain General Chief Complaint: Abdominal Pain Stated Complaint: abd pain Time Seen by Provider: 07/19/21 13:44 Source: patient Mode of arrival: ambulatory Limitations: no limitations History of Present Illness HPI narrative: This is a 21 year old female that presents to the ER for abdominal pain present since this morning. Associated with nausea and vomiting. Denies fever, dysuria, hematuria, or diarrhea. Related Data Home Medications Medication Instructions Recorded Confirmed PNV cmb#95-ferrous fumarate-FA 1 tablet PO DAILY 10/21/20 11/18/20 [] folic acid 1 mg PO DAILY 10/21/20 11/18/20 Allergies Allergy/AdvReac Type Severity Reaction Status Date / Time No Known Allergies Allergy Verified 07/19/21 15:30 Review of Systems Review of Systems: CONSTITUTIONAL: Denies fever GASTROINTESTINAL: Reports abdominal pain, nausea, vomiting. Denies diarrhea. GENITOURINARY: Denies dysuria or hematuria. All systems reviewed & are unremarkable except as noted in HPI and below PMFSH Past Medical History Medical History Compound heterozygous MTHFR mutation [id number] FGR ( growth retardation) KEENAN (generalized anxiety disorder) GBS (group B streptococcus) infection MDD (major depressive disorder) Obesity, morbid Outlet contraction of pelvis Surgical History Surgical History Hx of myringotomy Family History Family History Father Diabetes mellitus Hypertension Mother Diabetes mellitus Hypertension Social History Social History Smoking status: Never smoker Second hand tobacco smoke exposure: Yes Substance use: never Additional occupation/education comments: [email or web address] Gender identity (if verbalized by the patient): Female Sexual Orientation (if Verbalized by the Patient): Straight or Heterosexual Spiritual care concerns: No Agree to blood products: Yes Exam Narrative: GENERAL: Well-appearing, well-nourished, and in no acute distress. HEAD: Normocephalic, atraumatic. EYES: EOMI. CHEST: Clear to auscultation. No respiratory distress. No wheezes rales or rhonchi HEART: Regular rate and rhythm. No murmur heard. Normal peripheral pulses. ABDOMEN: Soft, nondistended, normal active bowel sounds. Tender to palpation in the RUQ and mid abdomen, without guarding. No CVA tenderness EXTREMITIES: Normal range of motion. No edema. SKIN: Warm, dry, no rash. NEURO: No focal deficits. Alert and oriented x3. PSYCH: Normal mood and affect Course Consultations Consultation #1: Spoke with Dr. Charles about patient and workup. Given dose of Zosyn. Patient will be taken to the OR for further management Date: 07/19/21 Vital Signs Vital signs: Vital Signs Temperature 99 F 07/19/21 13:15 Pulse Rate 114 H 07/19/21 13:15 Respiratory Rate 18 07/19/21 13:15 Blood Pressure 151/91 H 07/19/21 13:15 Pulse Oximetry 99 07/19/21 13:15 Temperature 98.0 F 07/19/21 15:38 Pulse Rate 106 H 07/19/21 15:38 Respiratory Rate 20 07/19/21 15:38 Blood Pressure 150/94 H 07/19/21 15:38 Pulse Oximetry 100 07/19/21 15:38 MDM - Abdominal Pain MDM Narrative Medical decision making narrative: Patient presents to the emergency department for mid abdominal pain, nausea and vomiting present since this morning. She is afebrile and nontoxic-appearing. CBC with leukocytosis to 17. Metabolic panel and lipase without concerning findings. UA without evidence of infection. Bedside test is negative. CT scan of the abdomen and pelvis shows acute appendicitis. Spoke with Dr. Charles about patient and workup. Given dose of Zosyn. Patient will be taken to the OR for further management Lab Data Attestation: I reviewed the patient's lab results. Result diagrams:
[2021-07-19 14:15] LABS: Add Urine Microscopic? NO; Appearance Urine Clear (Clear); Bilirubin Urine Negative (Negative); Blood Urine Negative (Negative); Color Urine Yellow (Yellow); Glucose Urine UA Negative (Negative); Ketones Urine Negative (Negative); Leukocyte Esterase Ur Negative LEU/UL (Negative); Nitrate Urine Negative (Negative); Protein Urine Negative (Negative); Specific Grav Ur 1.021 (1.001-1.035); Urobilinogen Urine Negative mg/dL (<2.0)
[2021-07-19 14:21] LABS: Alanine Aminotransferase 30 U/L (4-35); Albumin Level 4.3 g/dL (3.5-5.1); Alkaline Phosphatase 70 U/L (38-126); Anion Gap 7 mmol/L (8-16); Aspartate Amino Transferase 28 U/L (14-36); Bilirubin,Total 0.4 mg/dL (0.2-1.3); Blood Urea Nitrogen 14 mg/dL (7-17); Calcium 8.9 mg/dL (8.4-10.2); Carbon Dioxide 28 mmol/L (22-30); Chloride 105 mmol/L (98-107); Estimated CRCL calculation 146 ml/min; Estimated Glomerular Filt Rate > 60; Glucose 117 mg/dL (65-110); Lipase 32 U/L (23-300); Potassium 3.9 mmol/L (3.4-5.0); Sodium 140 mmol/L (137-145)
[2021-07-19] MEDS: ONDANSETRON INJ 4 MG/2 ML VIAL IV PUSH (14:26)
[2021-07-19] MEDS: FAMOTIDINE 20 MG/2 ML VIAL IV PUSH (14:26)
[2021-07-19] MEDS: SODIUM CHLORIDE 0.9% IV 500 ML 999 ML IV CONT (14:31)
--- NOTE | 2021-07-19 15:30 | WPDANESEPPF ---
Anes - Initial Pre Proc Eval Procedure: Operation Date: 07/19/21 15:30 Proposed Procedures p Laparoscopic Appendectomy - Francois Charles MD Date/Time: 07/19/21 15:30 Surgeon: Francois Charles MD Pre Op Diagnosis: abd pain Patient Data Age: 21 Gender: F Height: 1.68 m Weight: 124.5 kg Last Vital Signs Temp 37.1 C 07/19/21 15:01 Pulse 108 H 07/19/21 15:01 Resp 14 07/19/21 15:01 BP 140/93 H 07/19/21 15:01 Pulse Ox 100 07/19/21 15:01 Allergies Allergy/AdvReac Type Severity Reaction Status Date / Time No Known Allergies Allergy Verified 07/19/21 15:30 Home Medications Medication Instructions Recorded Confirmed Type PNV cmb#95-ferrous fumarate-FA 1 tablet PO DAILY 10/21/20 11/18/20 History [] folic acid 1 mg PO DAILY 10/21/20 11/18/20 History hydrocodone-acetaminophen 1 tablet PO Q6H PRN #30 tablet 11/18/20 Rx ibuprofen 600 mg PO Q6H #90 tablet 11/18/20 Rx Laboratory Tests 07/19/21 07/19/21 07/19/21 13:55 13:55 13:55 WBC 17.0 K/mm3 H K/mm3 (4.5-10.0) RBC 4.60 M/mm3 M/mm3 (4.2-5.4) Hgb 12.3 g/dL g/dL (12.0-15.0) Hct 38.2 % % (37.0-47.0) MCV 83.0 fl fl (80-100) MCH 26.7 pg pg (26-34) MCHC 32.2 g/dl g/dl (32-36) RDW 16.8 % H % (11.5-14.5) Plt Count 302 k/mm3 k/mm3 (150-375) MPV 10.1 fl fl (7.4-10.4) Immature Gran % (Auto) 0.4 % % (0-0.5) Neut % (Auto) 83.0 % H % (45.5-73.1) Lymph % (Auto) 11.9 % L % (18.3-44.2) [place] % (Auto) 4.3 % % (2.6-8.5) Eos % (Auto) 0.2 % % (0-4.4) Baso % (Auto) 0.2 % % (0.2-1.2) Lymph # (Auto) 2.03 K/mm3 K/mm3 (0.9-3.2) [place] # (Auto) 0.7 K/mm3 H K/mm3 (0.1-0.6) Eos # (Auto) 0.0 K/mm3 K/mm3 (0-0.3) Baso # (Auto) 0.0 K/mm3 K/mm3 (0.0-0.1) Abs Immat Gran (auto) 0.07 K/mm3 H K/mm3 (0.00-0.031) Absolute Neuts (auto) 14.1 K/mm3 H K/mm3 (1.3-6.7) Absolute Nucleated RBC 0.0 K/mm3 K/mm3 (0.0-0.012) Nucleated RBC % 0.0 % % (0.0-0.2) Sodium 140 mmol/L mmol/L (137-145) Potassium 3.9 mmol/L mmol/L (3.4-5.0) Chloride 105 mmol/L mmol/L (98-107) Carbon Dioxide 28 mmol/L mmol/L (22-30) Anion Gap 7 mmol/L L mmol/L (8-16) BUN 14 mg/dL D mg/dL (7-17) Creatinine 0.70 mg/dL mg/dL (0.7-1.0) Estim Creat Clear Calc 146 ml/min ml/min Estimated GFR > 60 (59 - ) Glucose 117 mg/dL H mg/dL (65-110) Calcium 8.9 mg/dL mg/dL (8.4-10.2) Total Bilirubin 0.4 mg/dL mg/dL (0.2-1.3) AST 28 U/L U/L (14-36) ALT 30 U/L U/L (4-35) Alkaline Phosphatase 70 U/L U/L (38-126) Total Protein 8.0 g/dL g/dL (6.3-8.2) Albumin 4.3 g/dL g/dL (3.5-5.1) Lipase 32 U/L U/L (23-300) Urine Color Yellow (Yellow) Urine Appearance Clear (Clear) Urine pH 7.0 (5.0-9.0) Ur Specific [place] 1.021 (1.001-1.035) Urine Protein Negative mg/dL mg/dL (Negative) Urine Glucose (UA) Negative mg/dL mg/dL (Negative) Urine Ketones Negative mg/dL mg/dL (Negative) Ur Blood (Man) Negative (Negative) Urine Nitrate Negative (Negative) Urine Bilirubin Negative (Negative) Urine Urobilinogen Negative mg/dL mg/dL (<2.0) Leukocyte Esterase Rfl Negative DANNA/UL DANNA/UL (Negative) Patient hx anesthesia problems: none Family hx anesthesia problems: none Results Review: All pre-operative results and documents have been reviewed as part of the pre-operative evaluation. [facility] Past Medical History Medical History (Updated 11/18/20 @ 08:54 by Julius Nam MD) Compound heterozygous MTHFR mut
--- NOTE | 2021-07-19 15:33 | PC.NURSE ---
Patient alert and responsive. She has been transferred to Pre op pending appendectomy. Mom at bedside. Report called to Pre Op nurse [place] Sanders
--- NOTE | 2021-07-19 15:34 | PM.SD2 ---
Same Day Admit/Disch: HPI History of Present Illness Chief complaint: abd pain Narrative: Justine Madrid is a 21 year old female who had a baby by 8 months ago. She started developing mid abdominal pain about 3:00 a.m. this morning. The pain got worse and moved to the right lower quadrant. She had some nausea and vomiting. She came to the emergency room. [place] [address]. She had tenderness with guarding in the right lower quadrant. CT scan was done and showed early acute appendicitis. Patient is taken to surgery now for laparoscopic appendectomy. [facility] Past Medical History Medical History Compound heterozygous MTHFR mutation [id number] FGR ( growth retardation) KEENAN (generalized anxiety disorder) GBS (group B streptococcus) infection MDD (major depressive disorder) Obesity, morbid Outlet contraction of pelvis Surgical History Surgical History Hx of myringotomy Family History Family History Father Diabetes mellitus Hypertension Mother Diabetes mellitus Hypertension Social History Social History Smoking status: Never smoker Second hand tobacco smoke exposure: Yes Substance use: never Additional occupation/education comments: [employer] Gender identity (if verbalized by the patient): Female Sexual Orientation (if Verbalized by the Patient): Straight or Heterosexual Spiritual care concerns: No Agree to blood products: Yes Same Day Admit/Disch: Med Pre-admit Medications Home Medications Medication Instructions Recorded Confirmed Type PNV cmb#95-ferrous fumarate-FA 1 tablet PO DAILY 10/21/20 11/18/20 History [] folic acid 1 mg PO DAILY 10/21/20 11/18/20 History hydrocodone-acetaminophen 1 - 2 tablet PO Q6H PRN #10 tablet 07/19/21 Rx ketorolac 10 mg PO Q6H 4 Days #16 tablet 07/19/21 Rx Exam Const: General: cooperative, healthy appearing, comfortable, no acute distress, alert and awake Nutritional Appearance: obese Orientation/consciousness: patient oriented x3 HENMT: Head: normocephalic and atraumatic Mouth: Yes Normal oral and palatal mucosa present Eyes: Conjunctivae: conjunctivae normal Pupils: Equal, round and reactive pupils present EOM: EOMs intact bilaterally Neck: Neck: normal visual inspection, no lymphadenopathy and nontender Resp: Effort & Inspection: normal respiratory effort Auscultation: clear to auscultation bilaterally Cardio: Rate: regular rate Rhythm: regular rhythm Heart sounds: no gallops, no murmurs and no rubs GI: Inspection: non-distended and obesity GI Palp: Yes Soft to palpation, Yes Tenderness to palpation present (GI) (Especially right lower quadrant), Yes Guarding due to palpation present (GI), No Hepatomegaly present, No Splenomegaly present and No Palpable mass present Skin: Lesions: no lesions Rashes: no rashes Neuro: General: no focal motor deficits and CN's II-XI intact bilaterally Cranial nerves: Yes Equal, round and reactive pupils present, Yes Bilaterally intact EOM present, Yes facial symmetry and Yes Midline tongue present Speech: normal speech Motor exam (neuro): 5/5 motor strength present throughout and Motor abnormalities not present Extrem: General: no clubbing, cyanosis or edema and edema Psych: Affect: normal affect Thought process: Normal thought process present Insight: Good insight present (Psych) DS: Data Data Completed and Pending Labs on day of discharge: Labs from last 24 hours 07/19/21 07/19/21 07/19/21 13:55 13:55 13:55 WBC 17.0 H RBC 4.60 Hgb 12.3 Hct 38.2 MCV 83.0 MCH 26.7 MCHC 32.2 RDW 16.8 H Plt Count 302 MPV 10.1 Immature Gran % (Auto) 0.4 Neut % (Auto) 83.0 H Lymph % (Auto)
[2021-07-19] MEDS: LACTATED RINGERS 1,000 ML 30 ML IV CONT ×2 (15:41→16:47)
[2021-07-19] MEDS: fentaNYL CITRATE INJ (*CRX) 100 MCG/2 ML VIAL 50 MCG IV PUSH (15:41)
--- NOTE | 2021-07-19 15:43 | WPDHPUPDATE1 ---
History and Physical Update Update Date/Time: 07/19/21 15:43 History and Physical has been reviewed, including an updated exam of the patient. There are NO changes in the patient's condition. Risks, benefits, and alternatives have been discussed and questions answered. Patient agrees to proceed with procedure.
--- NOTE | 2021-07-19 16:06 | P.OP_ITS ---
Procedure Note - Detailed Date of Procedure 07/19/21 Pre-op Diagnosis Acute appendicitis Post-op Diagnosis same Procedure Performed Laparoscopic appendectomy Surgeon Francois Charles MD Workers Compensation Consultant Nelly KEENA Anesthesia general and local (0.25% Marcaine with epinephrine) Indications Patient is a 21-year-old woman who developed abdominal pain at 3:00 a.m. today. The pain moved to the right lower quadrant was associated with nausea vomiting. She came to the emergency room. She was noted to be tender in the right lower [place] [address] scan showed acute appendicitis. She is taken to surgery now for laparoscopic appendectomy. Findings Acute non perforated appendicitis Description of Procedure Patient was taken to surgery and induced into general anesthesia. The abdomen is prepped and draped. Trocars were placed in usual fashion using 0.25% Marcaine with epinephrine and applied Medical optical trocars. A 5 mm camera was used. The left lower quadrant port was a 10 11 port. The other 2 were 5 mm ports. Patient was placed in Trendelenburg and the right side was elevated. The appendix was found fairly easily. There were some inflammatory adhesions to the appendix which were taken down without difficulty. We exposed the mesoappendix and the base of the appendix. I used the cautery to divide the mesoappendix and expose the appendiceal artery. The appendiceal artery was thoroughly cauterized and divided. I continued dissection and skeletonized the base of the appendix. The base the appendix was then ligated with a Vicryl endoloop. The appendix was divided just above the ligature and the mucosa of the appendiceal stump was cauterized. The appendix was placed immediately an Endo-Catch bag. It was retrieved through the 10 11 left lower quadrant trocar. We replaced the trocar and reviewed the right lower quadrant and areas of dissection. We suctioned away any old blood. There was no evidence of bleeding or other problems. We then evacuated CO2 and removed the trocar sleeves. Skin wounds were closed with subcuticular 4-0 Monocryl skin suture. The wounds were dressed with Exofin surgical adhesive. The patient was awakened and taken to recovery in good condition. Sponge and needle counts were correct x2. Estimated Blood Loss -5 Drains No Packing No Pathology yes (Appendix) Complications No immediate complications Condition stable Disposition PACU
[2021-07-19] MEDS: BUPIVACAINE/EPINEPHRINE 0.25% 10 ML VIAL 30 ML INFILTRATE (16:13)
== END 2021-07-19 18:10 | disposition home or self-care (01) ==
LOC: ANHED 15:02 → ANHSURGERY 15:11
PROVIDERS: Physician Assistant; Emergency Provider Emergency Medicine; PCP Physician Assistant; Visit Provider Surgery
PROC: 0DTJ4ZZ Resection of Appendix, Percutaneous Endoscopic Approach (ICD-10-PCS; CPT 44970; principal; 2021-07-19 15:30)
DX: K35.30 Acute appendicitis with localized peritonitis, without perforation or gangrene (principal); E72.12 Methylenetetrahydrofolate reductase deficiency; F41.1 Generalized anxiety disorder; F32.9 Major depressive disorder, single episode, unspecified; E66.01 Morbid (severe) obesity due to excess calories; Z68.41 Body mass index [BMI] 40.0-44.9, adult
CPT/HCPCS: 44970; 36415; 74177; 80053; 81003; 81025; 83690; 85025; 88304; 96374; 96375; 99285; J0131; J1100; J2250; J2405; J2543; J2704; J2710; J3010; J7030; J7040; J7120; Q9967

== ENCOUNTER 2022-05-20 14:05 | Emergency (ER) | payer OTHER, SELFPAY ==
--- NOTE | 2022-05-20 14:22 | PC.NURSE ---
In triage during the questioning, pt became upset and walked out of the triage area without being seen. Pt showed the RN the pad of blood. Pt walked out of ED Triage and left.
== END 2022-05-20 14:22 | disposition left against medical advice (07) ==
LOC: ANHED 15:13
PROVIDERS: PCP Physician Assistant
DX: O20.9 Hemorrhage in early pregnancy, unspecified (principal)
CPT/HCPCS: 99199

== ENCOUNTER 2023-02-01 16:58 | Emergency (ER) | payer OTHER, SELFPAY ==
[2023-02-01 17:12] VITALS: BP 117/79; PULSE 91; RESP 16; TEMP 37.1; O2SAT 100
--- NOTE | 2023-02-01 17:13 | ED.FEMALEGU ---
HPI - Female Genitourinary General Chief complaint: Urogenital-Female Stated complaint: Poss uti Time Seen by Provider: 02/01/23 17:15 Source: patient Mode of arrival: ambulatory Limitations: no limitations History of Present Illness HPI Narrative: Janay is a 22-year-old female patient presenting to the clinic today with complaints of possible urinary tract infection x2 days. She reports she is having some urinary frequency and blood in her urine as well as some left-sided flank pain. States that she is not having any dysuria at this time. Related Data Allergies Allergy/AdvReac Type Severity Reaction Status Date / Time No Known Allergies Allergy Verified 08/07/21 14:37 Review of Systems Review of Systems: Pertinent positives per HPI. Patient denies any fever, chills, rash, headache, visual changes, dizziness, cough, runny nose, sore throat, shortness of breath, chest pain, palpitations, nausea, vomiting, diarrhea, constipation, abdominal pain, or any urinary issues. PMFSH Past Medical History Medical History Compound heterozygous MTHFR mutation [id number] FGR ( growth retardation) KEENAN (generalized anxiety disorder) GBS (group B streptococcus) infection MDD (major depressive disorder) Obesity, morbid Outlet contraction of pelvis Surgical History Surgical History History of appendectomy Hx of myringotomy Family History Family History Father Diabetes mellitus Hypertension Mother Diabetes mellitus Hypertension Social History Social History Smoking status: Never smoker Second hand tobacco smoke exposure: Yes Substance use: never Living arrangements: with family Occupation/Education: occupation Additional occupation/education comments: [employer] Gender identity (if verbalized by the patient): Female Sexual Orientation (if Verbalized by the Patient): Straight or Heterosexual Spiritual care concerns: No Agree to blood products: Yes Comments At the time of my signature, I reviewed and agree with the nursing past medical, surgical, social, and family history. There is no relevant family history pertinent to the patient complaint. Exam Narrative: General: Well-developed, well nourished, in no apparent distress. Head: Normocephalic, atraumatic. Cardio: Regular rate and rhythm, s1 and s2 normal, no murmur appreciated. Resp: Clear to auscultation bilaterally, no rhonchi, rales, wheezing or rubs. Abdomen: Soft, pliable, bowel sounds present in all quadrants, non-tender to palpation, no organomegly, no CVAT tenderness. Course Course Emergency Course: Portions of this record may have been created with voice recognition software. Level of Care: Express Care Visit Vital Signs Vital signs: Vital signs reviewed MDM - Female Genitourinary MDM Narrative Medical decision making narrative: At the time of visit patient is resting comfortably on the exam table. Urine is positive for leukocytes, blood, and protein. Will send for culture. Will space patient on Augmentin. Supportive measures were discussed with the patient she voiced understanding discharge instructions and agrees to treatment plan. Differential Diagnosis Differential diagnosis: Likely urinary tract infection, cystitis and other (Pyelonephritis) Discharge Plan Discharge Clinical Impression: UTI (urinary tract infection) Patient Disposition: Home, Self-Care Condition: Stable Instructions: Antibiotic Form, Urinary Tract Infection in Women (ED) Additional Instructions: UA positive for 1+ leukocyte, 1+ protein, 1+ blood. We will send for culture. The take Augmentin as prescribed Increase fluids and stay well hydrated Wipe front to back. May use wet wipes. Avoid tub b
== END 2023-02-01 17:38 | disposition home or self-care (01) ==
PROVIDERS: Emergency Provider Nurse Practitioner Family
DX: N39.0 Urinary tract infection, site not specified (principal)
CPT/HCPCS: 81003; 87077; 87086; 87186; 99213; G0463

== ENCOUNTER 2024-05-02 23:04 | Emergency (ER) | payer SELFPAY ==
--- NOTE | ~2024-05-02 | CT_ITS ---
CT Facial Bones Clinical Indication: Right jaw pain Technique: Contiguous axial scans were obtained through the facial bones followed by coronal and sagi ttal reconstructions. Dose reduction technique was used on this scan by utilizing automated exposure control and iterative reconstruction technique. The dose-length product (DLP) was 638.96 mGy-cm. Findings: No fractures are identified. The visualized paranasal sinuses are clear. Intraorbital soft tissues appear normal. Impression: No fracture identified. Reviewed, dictated and finalized at location . TTER MACHINE Impression: No fracture identified.
[2024-05-02 23:17] VITALS: BP 130/89; PULSE 97; RESP 20; TEMP 36.4; O2SAT 97
[2024-05-03] MEDS: HYDROcodone/acetaminophen (*CRX) 5-325 MG TABLET 1 TAB PO (01:46)
[2024-05-03 01:50] VITALS: RESP 16; O2SAT 97
--- NOTE | 2024-05-03 01:51 | PC.NURSE ---
Pt c/o pain everywhere but states her worst pain is her head, rates pain 9/10, states she is occasionally a little dizzy
[2024-05-03 01:53] VITALS: BP 136/87; PULSE 82; RESP 18; O2SAT 98
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
[2024-05-03 04:34] VITALS: BP 136/82; PULSE 82; RESP 16; O2SAT 98
--- OUTSIDE RECORDS SUMMARY | 2024-05-07 11:12 | XMS_ITS | Encounter Summary ---
Author Organization [facility] Address [address] [place] [address] Care Team Providers Care Supply Officer Name Role Phone Donna Kovacs MD Primary Care Provider [phone] Reason for Visit * Reason Onset Date Comments Reminder Call 10/05/2020 LM - Appt Remind er & 1 Visitor Policy Encounter Details Date Type Department Care Team (Late st Contact Info) Description 10/05/2020 Telephone [facility] Maternal & Care [address] [place], [place] [id number] Kirsten Peter A Reminder Call (LM - Appt Reminder & 1 Visitor Policy) Social History Tobacco Use Types Packs/Day Years Used Date Smoking Tobacco: Never Smokeless Tobacco: Never Comments Yes Sex and Gender Information Value Date Recorded Sex Assigned at Not on file Gender Identity Not on file Sexual Orientation Not on file documented as of this encounter Plan of Treatment Not on file documented as of this encounter Visit Diagnoses Not on filedocumented in this encounter Care Teams Supply Officer Relationship Specialty Start Date End Date Donna Kovacs MD [address] [place] [address] [address] [place] [address] PCP - General Pediatrics 05/04/16 documented as of this encounter
--- OUTSIDE RECORDS SUMMARY | 2024-05-07 11:12 | XMS_ITS | Encounter Summary ---
Author Organization [facility] Address [address] [place] [address] Care Team Providers Care Ladle Puller Name Role Phone Donna Kovacs MD Primary Care Provider [phone] Reason for Visit * Reason Onset Date Comments Follow-up 07/17/2019 Encounter Details Date Type Department Care Team (Late st Contact Info) Description 07/17/2019 Telephone [facility] [employer] [facility] [address] [place] [address] Nelly Coleman APRN-CNP [address] [place] [address] Follow-up Social History Tobacco Use Types Packs/Day Years Used Date Smoking Tobacco: Never Smokeless Tobacco: Never Sex and Gender Information Value Date Recorded Sex Assigned at Not on file Gender Identity Not on file Sexual Orientation Not on file documented as of this encounter Miscellaneous Notes * Telephone Encounter - Nelly Delgado APRN-CNP - 07/17/2019 1:46 PM CST Courtesy follow-up phone call made to patient. Patient is feeling a little better NANETTE King 07/17/2019 1:47 PM' ET WRITER documented in this encounter Plan of Treatment Not on file documented as of this encounter Visit Diagnoses Not on filedocumented in this encounter Care Teams Ladle Puller Relationship Specialty Start Date End Date Donna Kovacs MD [address] [place] [address] PCP - General Pediatrics 05/04/16 documented as of this encounter
--- OUTSIDE RECORDS SUMMARY | 2024-05-07 11:12 | XMS_ITS | Encounter Summary ---
Author Organization [facility] Address [address] [place] [address] Care Team Providers Care Casting Machine Adjuster Name Role Phone Donna Kovacs MD Primary Care Provider Reason for Visit * Reason Onset Date Comments Follow-up 08/14/2016 Encounter Details Date Type Department Care Team (Late st Contact Info) Description 08/14/2016 Telephone [facility] [employer] [facility] [address] [place] [address] Natalya Chaves Follow-up Social History Tobacco Use Types Packs/Day Years Used Date Smoking Tobacco: Never Sex and Gender Information Value Date Recorded Sex Assigned at Not on file Gender Identity Not on file Sexual Orientation Not on file documented as of this encounter Plan of Treatment Not on file documented as of this encounter Visit Diagnoses Not on filedocumented in this encounter Care Teams Casting Machine Adjuster Relationship Specialty Start Date End Date Donna Kovacs MD [address] [place] [id number] PCP - General Pediatrics 05/04/16 documented as of this encounter
--- OUTSIDE RECORDS SUMMARY | 2024-05-07 11:12 | XMS_ITS | Encounter Summary ---
Author Organization [facility] Address [address] [place] [address] Care Team Providers Care Ward Secretary Name Role Phone Donna Kovacs MD Primary Care Provider [phone] Reason for Referral * (Routine) - Closed Specialty Diagnoses / Procedures Referred By Contac t Referred To Contact Diagnoses Encounter for follow-up ultrasound of anatomy (HCC) Obesity, Class III, BMI 40-49.9 (morbid obesity) (HCC) Procedures SONOGRAM - COMPLETE Yesy Nichole MD [address] [place] [address] Dr [address] [place] [phone] Referral ID Status Reason Start Date Expiration Date Visits Re quested Visits Authorized [id number] Closed 09/11/2022 09/11/2023 1 1 * (Routine) - Closed Specialty Diagnoses / Procedures Referred By Contac t Referred To Contact Diagnoses Encounter for follow-up ultrasound of anatomy (HCC) Obesity, Class III, BMI 40-49.9 (morbid obesity) (HCC) Procedures SONOGRAM - COMPLETE Yesy Nichole MD [address] [place] [address] Dr Dud[address] [place] [phone] Referral ID Status Reason Start Date Expiration Date Visits Re quested Visits Authorized [id number] Closed 09/11/2022 09/11/2023 1 1 Encounter Details Date Type Department Care Team (Latest Contact Info) Description 09/14/2022 1:24 PM CDT - 09/14/2022 11:59 PM CDT Hospital Encounter [facility] Maternal & Care [address] [place] [address] Juan Davdi Edge MD [address] [place] [address] Discharge Disposition: Home or Self Care Social History Tobacco Use Types Packs/Day Years Used Date Smoking Tobacco: Never Smokeless Tobacco: Never Comments Yes Sex and Gender Information Value Date Recorded Sex Assigned at Not on file Gender Identity Not on file Sexual Orientation Not on file documented as of this encounter Plan of Treatment Not on file documented as of this encounter Procedures Procedure Name Priority Date/Time Associated Diagnosis Comments SONOGRAM - COMPLETE Routine 09/14/2022 1 :50 PM CDT Encounter for follow-up ultrasound of anatomy (HCC) Obesity, Class III, BMI 40-49.9 (morbid obesity) (HCC) documented in this encounter Results * SONOGRAM - COMPLETE (09/14/2022 1:50 PM CDT) Anatomical Region Laterality Modality Other 09/14/2022 1:50 PM CDT Narrative 09/14/2022 2:32 PM CDT ? [facility] ? [facility] Care Center ?PHONE: ??FAX: Pat. Name: ?WILLIAM MADRID. No: ?[id number] Study Date: ?? 09/14/2022 ??1:50pm , Age: ? 2000, 22 Pregnancies: ?? 2, Para 1 Height: ? 66 in Weight: ? 261 lb LMP: ?03/02/2022 GA by LMP: ?28w0d GA by Base: ?? 27w1d ?? OVIDIO: 12/13/2022 GA by US: ? 26w6d ?? OVIDIO: 12/15/2022 GA Selected: ??27w1d (From [facility]) OVIDIO: ?12/13/2022 Referring MD: Yesy Nichole MD Twist Maker: ??Raisa Tello RDMS CPT4: ? 76035 BMI: ?42.12 Hist/Ind: ? Incomplete anatomic survey ?Approximate LMP, irregular menses ?Class III obesity ?Prior ?LR cfDNA, M MEASUREMENTS & AGE ? GROWTH EVALUATION Measurement ??GA ? Range ? Srce %for GA Ratios ----- ---- ------- BPD ??6.8 cm 27w2d (77v8s-03s3b) Hadl BPD 43% FL/BPD 0.77 (0.71 - 0.87) HC ??24.5 cm 26w4d (98r9q-91y6j) Hadl HC ??9% FL/AC ??0.23 (0.20 - 0.24) AC ??23.1 cm 27w3d (06j0m-78a4s) Hadl AC ??51% HC/AC ??1.06 (1.00 - 1.18) FL ?? 5.2 cm 27w5d (05b2b-79u7c) Hadl FL ??52% CI ? 0.81 (0.70 - 0.86) GA for sonogram 26w6d (40i7t-74o7p) ?? Weight Estimate: based on (BPD,HC,AC,FL) Hadlock ?Weight: 1075 gm (918-1232gm) Hadl ? : 2lbs, 5oz ? Normal: 1077 gm (808- 1347gm) Hadl ? Wt% ? 50% for 27w1d Heart Rate: 151 bpm Amniotic Fluid Index: 05.0cm (Deepest Pocket) EVAL, PLACENTA Presentation: cephalic Placenta: anterior Heart Rate: 151 bpm Amniotic Fluid Volume: normal Anatomy!Normal!Abnormal!Suboptimal!Prev. Seen!Comments Cranium ?! ?! ?! ?! ? x ?! Mdl (CSP/Thal! ?! ?! ?! ? x ?! Ventricles ?? ! ?! ?! ?! ? x ?! Choroid Plexu! ?! ?! ?! ? x ?! Cerebellum ?? ! ?! ?! ?! ? x ?! Cisterna M. ??! ?! ?! ?! ? x ?! Nuchal Fold ??! ?! ?! ?! ? x ?! Orbits ? ! ?! ?! ?! ? x ?! Profile ?! ?! ?! ?! ? x ?! Nasal Bone ?? ! ?! ?! ?! ? x ?! Lip ?! ?! ?! ?! ? x ?! Spine ?! ?? x ??! ?! ?! ?! Lungs ?! ?! ?! ?! ? x ?! 4 Chamber Hea! ?! ?! ?! ? x ?! LVOT ? ! ?! ?! ?! ? x ?! RVOT ? ! ?! ?! ?! ? x ?! 3 Vessel View! ?! ?! ?! ? x ?! 3 Vessel Trac! ?! ?! ?! ? x ?! Cross-over ?? ! ?! ?! ?! ? x ?! Ductal Arch ??! ?! ?! ?! ? x ?! Aortic Arch ??! ?! ?! ?! ? x ?! Caval View ?? ! ?! ?! ?! ? x ?! Situs ?! ?! ?! ?! ? x ?! Diaphragm ?! ?! ?! ?! ? x ?! Stomach ?! ?? x ??! ?! ?! ? x ?! Bowel ?! ?! ?! ?! ? x ?! Kidneys ?! ?? x ??! ?! ?! ? x ?! Bladder ?! ?? x ??! ?! ?! ? x ?! 3 Vessel Cord! ?! ?! ?! ? x ?! Cord In! ?! ?! ?! ? x ?! Upper Extremi! ?! ?! ?! ? x ?! Hands ?! ?! ?! ?! ? x ?! Lower Extremi! ?! ?! ?! ? x ?! Feet ? ! ?! ?! ?! ? x ?! External Marilyn! ?! ?! ?! ? x ?! Placental Cor! ?! ?! ?! ? x ?! CLINICAL SUMMARY A single fetus is seen in cephalic presentation. ??The measurements today are consistent with appropriate growth. ??The OVIDIO is based on a prior ultrasound. ??The amniotic fluid volume is within normal limits. ?? IMPRESSION: Single, live, intrauterine at 27w1d ?? size is within normal limits ?? Amniotic fluid volume: within normal limits ?? No major malformations were seen within the limitations of ultrasound RECOMMEND: Ultrasound in 4 weeks for growth assessment Thank you for allowing us the opportunity to care for your patient Juan David Edge MD <Electronic Signature> ??09/14[facility]2022 [facility] Yesy Nichole MD [facility] ORDERABLES documented in this encounter Visit Diagnoses Diagnosis Encounter for follow-up ultrasound of anatomy (HCC)- Primary Obesity, Class III, BMI 40-49.9 (morbid obesity) (HCC) Morbid obesity 26 weeks gestation of (HCC) state, incidental documented in this encounter Care Teams Ward Secretary Relationship Specialty Start Date End Date Donna Kovacs MD [address] [place] [id number] PCP - General Pediatrics 05/04/16 documented as of this encounter
--- OUTSIDE RECORDS SUMMARY | 2024-05-07 11:12 | XMS_ITS | Encounter Summary ---
Author Organization [facility] Address [address] [facility] [facility] [place] [address] Care Team Providers Care Adult Parole Officer Name Role Phone Donna Kovacs MD Primary Care Provider Reason for Visit * Reason Comments Ultrasound Encounter Details Date Type Department Care Team (Latest Contact Info) Description 07/17/2022 7:20 AM PHYSICIST CRYOGENICS - 07/17/2022 11:59 PM PHYSICIST CRYOGENICS Hospital Encounter [facility] Maternal & Care [address] [place] [address] Divina Mcarthur MD [address] [id number] Discharge Disposition: Home or Self Care Social [...] Associated Diagnosis Comments SONOGRAM - COMPLETE Routine 07/17/2022 7 :27 AM PHYSICIST CRYOGENICS Encounter for anatomic survey (HCC) 19 weeks gestation of (HCC) documented in this encounter Results * SONOGRAM - COMPLETE (07/17/2022 7:27 AM PHYSICIST CRYOGENICS) Anatomical Region Laterality Modality Other 07/17/2022 7:27 AM PHYSICIST CRYOGENICS Narrative 07/17/2022 11:55 AM PHYSICIST CRYOGENICS ? [facility] ? [facility] Center ?PHONE: ??FAX: Pat. Name: ?WILLIAM MADRID Pat. No: ?[id number] Study Date: ?? 07/17/2022 ??7:27am , Age: ? 2000, 22 Pregnancies: ?? 2, Para 1 Height: ? 66 in Weight: ? 261 lb LMP: ?03/02/2022 GA by LMP: ?19w4d GA by US: ? 18w4d ?? OVIDIO: 12/14/2022 GA Selected: ??18w5d (From Known E) OVIDIO: ?12/13/2022 Referring MD: Yesy Nichole MD Television Agent: ??Sheeba Orourke RDMS CPT4: ? 01594,77021 BMI: ?42.12 Hist/Ind: ? anatomic survey ?Approximate LMP, irregular menses ?Class III obesity ?Prior ?LR cfDNA, M MEASUREMENTS & AGE ? GROWTH EVALUATION Measurement ??GA ? Range ? Srce %for GA Ratios ----- ---- ------- BPD ??4.2 cm 18w5d (18k5v-11w6u) Hadl BPD 48% FL/BPD 0.68 HC ??15.9 cm 18w5d (74d3o-24n7u) Hadl HC ??46% FL/AC ??0.21 AC ??13.2 cm 18w5d (17f7g-87b6q) Hadl AC ??47% HC/AC ??1.20 (1.07 - 1.26) FL ?? 2.8 cm 18w5d (48b1o-23g6l) Hadl FL ??42% CI ? 0.72 (0.70 - 0.86) HL ?? 2.5 cm 17w6d (15a7p-92k8t) Loco HL ??37% Cere 1.9 cm 18w3d (36f1v-16o0a) Hill Cere41% GA for sonogram 18w4d (76f3k-57x8y) ?? Weight Estimate: based on (BPD,HC,AC,FL) Hadlock ?Weight: 253 gm (216-290gm) Hadloc ? : 0lbs, 8oz ? Normal: 259 gm (194-323gm) Hadloc ? Wt% ? 45% for 18w5d Cervix: ??Length: 4.3 cm ??Approach: transvaginal Heart Rate: 144 bpm Amniotic Fluid Index: 03.4cm (Deepest Pocket) EVAL, PLACENTA Presentation: cephalic Umbilical Cord: 3 Vessels Placenta: anterior Previa: not low-lying Heart Rate: 144 bpm Amniotic Fluid Volume: normal Anatomy!Normal!Abnormal!Suboptimal!Prev. Seen!Comments Cranium ?! ?? x ??! ?! ?! ?! Mdl (CSP/Thal! ?? x ??! ?! ?! ?! Ventricles ?? ! ?? x ??! ?! ?! ?! Choroid Plexu! ?? x ??! ?! ?! ?! Cerebellum ?? ! ?? x ??! ?! ?! ?! Cisterna M. ??! ?? x ??! ?! ?! ?! Nuchal Fold ??! ?? x ??! ?! ?! ?! Orbits ? ! ?! ?! ? x ?! ?! Profile ?! ?! ?! ? x ?! ?! Nasal Bone ?? ! ?! ?! ? x ?! ?! Lip ?! ?! ?! ? x ?! ?! Spine ?! ?! ?! ? x ?! ?! Lungs ?! ?! ?! ? x ?! ?! 4 Chamber Hea! ?! ?! ? x ?! ?! LVOT ? ! ?! ?! ? x ?! ?! RVOT ? ! ?! ?! ? x ?! ?! 3 Vessel View! ?? x ??! ?! ?! ?! 3 Vessel Trac! ?! ?! ? x ?! ?! Cross-over ?? ! ?! ?! ? x ?! ?! Ductal Arch ??! ?! ?! ? x ?! ?! Aortic Arch ??! ?! ?! ? x ?! ?! Caval View ?? ! ?? x ??! ?! ?! ?! Situs ?! ?? x ??! ?! ?! ?! Diaphragm ?! ?? x ??! ?! ?! ?! Stomach ?! ?? x ??! ?! ?! ?! Bowel ?! ?? x ??! ?! ?! ?! Kidneys ?! ?? x ??! ?! ?! ?! Bladder ?! ?? x ??! ?! ?! ?! 3 Vessel Cord! ?! ?! ? x ?! ?! Cord In! ?? x ??! ?! ?! ?! Upper Extremi! ?? x ??! ?! ?! ?! Hands ?! ?! ?! ? x ?! ?!Right is ?unremarkable, ?imaging of the ?left is suboptimal Lower Extremi! ?? x ??! ?! ?! ?! Feet ? ! ?? x ??! ?! ?! ?! External Marilyn! ?? x ??! ?! ?! ?! Placental Cor! ?? x ??! ?! ?! ?! CLINICAL SUMMARY IMPRESSION: 1) Dang gestation, 18w5d by an 11w1d outside ultrasound 2) Biometry is consistent with the previously established OVIDIO of 12/13/22 3) No abnormalities were detected on detailed anatomic survey 4) Imaging of a portion of the anatomy (see table above) was suboptimal, secondary to maternal acoustic properties and positioning 5) Transvaginal ultrasound reveals a minimum cervical length of 4.3 cm NOTE: Ultrasound does not allow detection of all structural or genetic abnormalities. ?? RECOMMEND: ?? Follow up ultrasound in 4 weeks to complete the anatomic survey and reevaluate growth Thank you for allowing us the opportunity to care for your patient. Divina Mcarthur MD <Electronic Signature> ??07/17/2022 11:55am Yesy Nichole MD [facility] ORDERABLES documented in this encounter Visit Diagnoses Diagnosis Encounter for anatomic survey (HCC)- Primary Encounter for anatomic survey 19 weeks gestation of (HCC) state, incidental Ultrasound for screening for growth restriction (HCC) screening for growth retardation using ultrasonics Obesity, Class III, BMI 40-49.9 (morbid obesity) (HCC) Morbid obesity H/O: Other postprocedural status documented in this encounter Care Teams Adult Parole Officer Relationship Specialty Start Date End Date Donna Kovacs MD [address] [place] [address] PCP - General Pediatrics 05/04/16 documented as of this encounter
--- OUTSIDE RECORDS SUMMARY | 2024-05-07 11:12 | XMS_ITS | Encounter Summary ---
Author Organization [facility] Address [address] [place] [address] Care Team Providers Care Branch General Manager Name Role Phone Donna Kovacs MD Primary Care Provider [phone] Encounter Details Date Type Department Care Team (Latest Contact Info) Description 10/07/2020 12:54 PM CDT - 10/07/2020 11:59 PM CDT Hospital Encounter [facility] [address] [place], [place] [id number] Paramjit Harrell MD Fisher, Allan J, MD [address] [place] [id number] Discharge Disposition: Home or Self Care Social [...] Associated Diagnosis Comments SONOGRAM - COMPLETE Routine 10/07/2020 1 :02 PM CDT Ultrasound for screening for growth restriction (HCC) documented in this encounter Results * SONOGRAM - COMPLETE (10/07/2020 1:02 PM CDT) Anatomical Region Laterality Modality Other 10/07/2020 1:02 PM CDT Narrative 10/07/2020 2:43 PM CDT ? [facility] ?PHONE: ??FAX: Pat. Name: ?WILLIAM MADRID Pat. No: ?[id number] Study Date: ?? 10/07/2020 ??1:02pm , Age: ? 2000, 20 Pregnancies: ?? 1 Height: ? 66 in Weight: ? 237 lb LMP: ?Unknown GA by US: ? 32w6d ?? OVIDIO: 11/26/2020 GA Selected: ??33w5d (From Known E) OVIDIO: ?11/20/2020 Referring MD: Julius Nam MD Trimmer Sawyer: ??Ivonne Bates RDMS CPT4: ? 47943 BMI: ?38.25 Hist/Ind: ? 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 GROWTH EVALUATION Measurement ??GA ? Range ? Srce %for GA Ratios ----- ---- ------- BPD ??8.1 cm 32w3d (92m5g-33u3c) Hadl BPD 14% FL/BPD 0.79 (0.71 - 0.87) HC ??30.0 cm 33w2d (91y0q-83h8j) Hadl HC ??9% FL/AC ??0.21 (0.20 - 0.24) AC ??30.2 cm 34w1d (82e5s-66z0d) Hadl AC ??68% HC/AC ??0.99 (0.95 - 1.13) FL ?? 6.4 cm 33w0d (45h9c-40w6r) Hadl FL ??23% CI ? 0.75 (0.70 - 0.86) HL ?? 5.5 cm 31w6d (04o0v-64t1m) Loco HL ??20% Cere 3.9 cm 31w4d (29t6t-95o0c) Hill Cere11% GA for sonogram 32w6d (28m3c-74x9c) ?? Weight Estimate: based on (BPD,HC,AC,FL) Hadlock ?Weight: 2236 gm (1909-2562gm) Had ? : 4lbs, 14oz ? Normal: 2316 gm (1737- 2894gm) Had ? Wt% ? 40% for 33w5d Heart Rate: 147 bpm Amniotic Fluid Index: 14.4cm (08.2-24.7) Q1: 4.3cm ??Q2: 4.0cm ??Q3: 2.1cm ??Q4: 4.0cm ?? EVAL, PLACENTA Presentation: cephalic Placenta: anterior Heart Rate: 147 bpm Amniotic Fluid Volume: normal Anatomy!Normal!Abnormal!Suboptimal!Prev. Seen!Comments Cranium ?! ?? x ??! ?! ?! ?! Mdl (CSP/Thal! ?? x ??! ?! ?! ?! Ventricles ?? ! ?? x ??! ?! ?! ?! Choroid Plexu! ?? x ??! ?! ?! ?! Cerebellum ?? ! ?? x ??! ?! ?! ?! Cerebellar Ve! ?? x ??! ?! ?! ?! Cisterna M. ??! ?? x ??! ?! ?! ?! Nuchal Fold ??! ?? x ??! ?! ?! ?! Orbits ? ! ?? x ??! ?! ?! ?! Profile ?! ?? x ??! ?! ?! ?! Nasal Bone ?? ! ?? x ??! ?! ?! ?! Lip ?! ?! ?! ? x ?! ?! Maxilla ?! ?! ?! ? x ?! ?! Mandible ? ! ?! ?! ? x ?! ?! Neck ? ! ?! ?! ? x ?! ?! Spine ?! ?! ?! ? x ?! ?! Lungs ?! ?? x ??! ?! ?! ?! 4 Chamber Hea! ?? x ??! ?! ?! ?! LVOT ? ! ?? x ??! ?! ?! ?! RVOT ? ! ?? x ??! ?! ?! ?! 3 Vessel View! ?? x ??! ?! ?! ?! 3 Vessel Trac! ?? x ??! ?! ?! ?! Cross-over ?? ! ?? x ??! ?! ?! ?! Ductal Arch ??! ?! ?! ? x ?! ?! Aortic Arch ??! ?! ?! ? x ?! ?! Caval View ?? ! ?! ?! ? x ?! ?! Situs ?! ?? x ??! ?! ?! ?! Diaphragm ?! ?? x ??! ?! ?! ?! Stomach ?! ?? x ??! ?! ?! ?! Liver ?! ?? x ??! ?! ?! ?! Bowel ?! ?? x ??! ?! ?! ?! Kidneys ?! ?? x ??! ?! ?! ?! Bladder ?! ?? x ??! ?! ?! ?! 3 Vessel Cord! ?? x ??! ?! ?! ?! Cord In! ?! ?! ? x ?! ?! Upper Extremi! ?! ?! ? x ?! ?!unremarkable ?right, suboptimal ?left Hands ?! ?! ?! ? x ?! ?! Lower Extremi! ?? x ??! ?! ?! ?! Feet ? ! ?! ?! ? x ?! ?! External Marilyn! ?! ?! ? x ?! ?! Placental Cor! ?! ?! ? x ?! ?! CLINICAL SUMMARY Study Number: 1 ?? A single fetus is seen in cephalic presentation. ??The measurements today are consistent with appropriate size for the OVIDIO provided. ??The OVIDIO is based on a known OVIDIO. ??The amniotic fluid volume is within normal limits. ?? The anatomy was limited by challenging maternal acoustic properties and position. ?? IMPRESSION: Single, live intrauterine at 33w5d ?? size is within normal limits ?? Amniotic fluid volume: within normal limits ?? Reassuring transvaginal cervical length ?? No major malformations were seen within the limitations of ultrasound. ?? RECOMMEND: Ultrasound in 4 weeks for growth and follow up anatomy as per table above. ?? Thank you for allowing us they opportunity to care for your patient. ?? Gianni Bhatia MD <Electronic Signature> ??10/07/2020 02:43pm Julius Nam MD [facility] ORDERABLES documented in this encounter Visit Diagnoses Diagnosis Ultrasound for screening for growth restriction (HCC)- Primary screening for growth retardation using ultrasonics Obesity complicating , third trimester (HCC) Obesity, unspecified classification, unspecified obesity type, unspecified whether serious comorbidity present 33 weeks gestation of (HCC) state, incidental documented in this encounter Care Teams Branch General Manager Relationship Specialty Start Date End Date Donna Kovacs MD [address] [place] [id number] PCP - General Pediatrics 05/04/16 documented as of this encounter
--- OUTSIDE RECORDS SUMMARY | 2024-05-07 11:12 | XMS_ITS | Encounter Summary ---
Author Organization [facility] Address [address] [place] [address] Care Team Providers Care Electronics Detail Draftsperson Name Role Phone Donna Kovacs MD Primary Care Provider Reason for Visit * Reason Comments Sore Throat Encounter Details Date Type Department Care Team (Latest Contact Info) Description 08/10/2017 12:00 PM CDT Office Visit [facility] [address] [id number] Provider, Bharath Exp Nameuti Acute streptococcal pharyngitis (Primary Dx) Social History Tobacco Use Types Packs/Day Years Used Date Smoking Tobacco: Never Smokeless Tobacco: Never Sex and Gender Information Value Date Recorded Sex Assigned at Not on file Gender Identity Not on file Sexual Orientation Not on file documented as of this encounter Last Filed Vital Signs Vital Sign Reading Time Taken Comments Blood Pressure 118/70 08/10/2017 12:18 PM CDT Pulse 80 08/10/2017 12:18 PM CDT Temperature 36.7 ??C (98 ??F) 08/10/2017 12:18 PM CDT Respiratory Rate 14 08/10/2017 12:18 PM CDT Oxygen Saturation 97% 08/10/2017 12:18 PM CDT Inhaled Oxygen Concentration - - Weight 101.2 kg (223 lb) 08/10/2017 12:18 PM CDT Height 165.1 cm (5' 5 ) 08/10/2017 12:18 PM CDT Body Mass Index 37.11 08/10/2017 12:18 PM CDT Body Mass Index Percentile 98.26% 08/10/2017 12: 18 PM CDT Growth Chart: [facility] (Girls, 2- 20 Years) documented in this encounter Patient Instructions * Patient Instructions* Ronna Starr APRN-[employer] - 08/10/2017 12:30 PM CDT Images from the original note were not included. Drink plenty of fluids May take Tylenol or Ibuprofen as directed per package instructions Warm salt water gargles Humidifier Change toothbrush on day 3 of antibiotic (or after 6 doses)- Saturday evening or Saturday morning FOR PAIN CONTROL Magic Mouthwash Equal parts liquid antacid (e.g.Maalox) and liquid Children's Benadryl with a couple drops of liquid Anbesol. Gargle (and spit out) every 3-4 hours as needed. SEEK EMERGENCY CARE IF SEVERE SYMPTOMS PERSIST, SUCH , BUT NOT LIMITED TO: HIGH FEVER, NECK PAIN,SWELLING OF THE NECK, NECK TENDERNESS, DEVELOPMENT OF RASH, DIFFICULTY SWALLOWING, MENTAL STATUS CHANGES, SEVERE HEADACHE, CHANGES IN THE COLOR OF YOUR URINE, DECREASED URINATION, OR INABILITY TO SWALLOW SALIVA (MAY MANIFEST DROOLING IN CHILDREN) Strep Throat HEAD GOLF PROFESSIONAL: Strep throat is a throat infection caused by bacteria. It is easily spread from person to person. Common symptoms include the following: ?? Sore, red, and swollen throat ?? Fever and headache ?? Upset stomach, abdominal pain, or vomiting ?? White or yellow patches or blisters in the back of the throat ?? Throat pain when he or she swallows ?? Tender, swollen lumps on the sides of the neck or jaw Call 911 for any of the following: ?? Your child has trouble breathing. Seek immediate care if: ?? Your child's signs and symptoms continue for more than 5 to 7 days. ?? Your child is tugging at his or her ears or has ear pain. ?? Your child is drooling because he or she cannot swallow their spit. ?? Your child has blue lips or fingernails. Contact your child's healthcare provider if: ?? Your child has a fever. ?? Your child has a rash that is itchy or swollen. ?? Your child's signs and symptoms get worse or do not get better, even after medicine. ?? You have questions or concerns about your child's condition or care. Treatment for strep throat: ?? Antibiotics treat a bacterial infection. Your child should feel better within 2 to 3 days after antibiotics are started. Give your child his antibiotics until they are gone, unless your child's healthcare provider says to stop them. Your child may return to school 24 hours after he starts antibiotic medicine. ?? Acetaminophen decreases pain and fever. It is available without a doctor's order. Ask how much to give your child and how often to give it. Follow directions. Acetaminophen can cause liver damage if not taken correctly. ?? NSAIDs , such as ibuprofen, help decrease swelling, pain, and fever. This medicine is available with or without a doctor's order. NSAIDs can cause stomach bleeding or kidney problems in certain people. If your child takes blood thinner medicine, always ask if NSAIDs are safe for him. Always readthe medicine label and follow directions. Do not give these medicines to children under 6 months of age without direction from your child's healthcare provider. ?? Do not give aspirin to children under 18 years of age. Your child could develop Vamsi syndrome ifhe takes aspirin. Vamsi syndrome can cause life- threatening brain and liver damage. Check your child's medicine labels for aspirin, salicylates, or oil of wintergreen. ?? Give your child's medicine as directed. Contact your child's healthcare provider if you think the medicine is not working as expected. Tell him or her if your child is allergic to any medicine. Keep a current list of the medicines, vitamins, and herbs your child takes. Include the amounts, and when, how, and why they are taken. Bring the list or the medicines in their containers to follow-up visits. Carry your child's medicine list with you in case of an emergency. Manage your child's symptoms: ?? Give your child throat lozenges or hard candy to suck on. Lozenges and hard candy can help decrease throat pain. Do not give lozenges or hard candy to children under 4 years. ?? Give your child plenty of liquids. Liquids will help soothe your child's throat. Ask your child's healthcare provider how much liquid to give your child each day. Give your child warm or frozen liquids. Warm liquids include hot chocolate, sweetened tea, or soups. Frozen liquids include ice pops.Do not give your child acidic drinks such as orange juice, grapefruit juice, or lemonade. Acidic drinks can make your child's throat pain worse. ?? Have your child gargle with salt water. If your child can gargle, give him or her ?? of a teaspoon of salt mixed with 1 cup of warm water. Tell your child to gargle for 10 to 15 seconds. Your child can repeat this up to 4 times each day. ?? Use a cool mist humidifier in your child's bedroom. A cool mist humidifier increases moisture inthe air. This may decrease dryness and pain in your child's throat. Prevent the spread of strep throat: ?? Wash your and your child's hands often. Use soap and water or an alcohol- based hand rub. ?? Do not let your child share food or drinks. Replace your child's toothbrush after he has taken antibiotics for 24 hours. Follow up with your child's healthcare provider as directed: Write down your questions so you remember to ask them during your child's visits. ?? 2017 [employer] Information is for End User's use only and may not be sold, redistributed or otherwise used for commercial purposes. All illustrations and images included in CareNotes?? are the copyrighted property of [employer] or [facility]. The above information is an educational coordinator only. It is not intended as medical advice for individual conditions or treatments. Talk to your doctor, nurse or pharmacist before following any medical regimen to see if it is safe and effective for you. documented in this encounter Progress Notes * Ronna Starr APRN-CNP - 08/10/2017 12:18 PM CDT Images from the original note were not included. History Justine Savage is a 17 y.o. female who presents to the clinic with Chief Complaint Patient presents with ??? Sore Throat Primary Care Physician is Donna Whiteside MD. She reports the following symptoms: sinus and nasal congestion, sore throat, swollen glands, myalgias, headache, dry cough, pain while swallowing, white spots in throat and enlarged tonsils. Onset was 3 days ago. The Clinical course has been gradually worsening. Patient is drinking plenty of fluids. Positive for sick contacts. OTC- none Patient rates throat 8/10 on pain scale Past Medical History: Diagnosis Date ??? NEGATIVE PAST MEDICAL HISTORY - SEE PROBLEM LIST No family history on file. Current Outpatient Prescriptions Medication Sig Dispense Refill ??? amoxicillin (AMOXIL) 500 MG capsule Take 1 capsule by mouth 2 times daily for 10 days 20 capsule 0 No current facility-administered medications for this visit. No Known Allergies Social History Social History ??? Marital status: Single Social History Main Topics ??? Smoking status: Never Smoker ??? Smokeless tobacco: Never Used Review of Systems Constitutional: Positive for fatigue, malaise, and headache Eyes: Negative Ears, nose, mouth, and throat: sore throat, painful swallowing, white spots on throat, and nasal congestion Respiratory: Positive for acute cough.Negative for wheezing or shortness of breath during cough Cardiovascular: Negative for palpitations, tachycardia Gastrointestinal: Negative for poor appetite, nausea Hematologic/lymphatic: Positive for swollen nodes Objective: BP 118/70 Pulse 80 Temp 98 ??F Resp 14 Ht 1.651 m (5' 5 ) Wt 101.2 kg (223 lb) SpO2 97% BMI 37.11 kg/m2 General appearance: alert, cooperative, no distress, oriented to person, place, and time Head: normocephalic, without trauma Eyes: sclera and conjunctiva clear Ears: canals clear, tympanic membranes normal, hearing intact to voice Nose: nares open; no septal deviation is noted, nasal mucosa not inflamed Throat: no mucous membrane abnormalities, moderate oropharyngeal erythema, tonsillar hypertrophy 3+, exudates present Neck: supple Nodes: cervical adenopathy bilaterally, tender with palpation Lungs: breath sounds normal and symmetric; no rales or wheezes Heart: regular rhythm, normal S1 and S2, without murmurs, gallops or rubs Assessment: Encounter Diagnosis Name Primary? Acute streptococcal pharyngitis Yes Plan: Patient placed on antibiotics - see orders. Patient advised of the risk of peritonsillar abscess formation. Patient advised will be infectious for 24 hours after starting antibiotics. Educational materials given. Drink plenty of fluids May take Tylenol or Ibuprofen as directed per package instructions Warm salt water gargles Humidifier Change toothbrush on day 3 of antibiotic (or after 6 doses)- Saturday evening or Saturday morning Reviewed education materials and instructions with patient and answered all questions. Justine Savage verbalized understanding and agrees with plan. Follow up with Donna Whiteside MD if symptoms worsen or do not completely resolve. FOR PAIN CONTROL Magic Mouthwash Equal parts liquid antacid (e.g.Maalox) and liquid Children's Benadryl with a couple drops of liquid Anbesol. Gargle (and spit out) every 3-4 hours as needed. SEEK EMERGENCY CARE IF SEVERE SYMPTOMS PERSIST, SUCH , BUT NOT LIMITED TO: HIGH FEVER, NECK PAIN,SWELLING OF THE NECK, NECK TENDERNESS, DEVELOPMENT OF RASH, DIFFICULTY SWALLOWING, MENTAL STATUS CHANGES, SEVERE HEADACHE, CHANGES IN THE COLOR OF YOUR URINE, DECREASED URINATION, OR INABILITY TO SWALLOW SALIVA (MAY MANIFEST DROOLING IN CHILDREN) Orders Placed This Encounter ??? STREP A SCREEN - POINT OF CARE (AMB) STL ??? amoxicillin (AMOXIL) 500 MG capsule Sig: Take 1 capsule by mouth 2 times daily for 10 days Dispense: 20 capsule Refill: 0 Recent Results (from the past 24 hour(s)) STREP A SCREEN - POINT OF CARE (AMB) STL Collection Time: 08/10/17 12:00 AM Result Value Ref Range Strep A Rapid Positive (Abnormal) Negative Strep A INTERNAL CONTROL Present Lot Number [id number] Expiration Date 02/07/2019 Ronna Starr APRN, SENIOR COGNOS DEVELOPER- 08/10/2017 12:32 PM documented in this encounter Plan of Treatment Not on file documented as of this encounter Procedures Procedure Name Priority Date/Time Associated Diagnosis Comments STREP A SCREEN - POINT OF CARE (AMB) STL Routine 08/10/2017 Acute streptococcal pharyngitis documented in this encounter Results * (ABNORMAL) STREP A SCREEN - POINT OF CARE (AMB) STL (08/10/2017) Strep A Rapid POCT Positive(A) Negative Strep A Internal Control Present Lot # [id number] Expiration Date 02/07/2019 Throat ENTIRE THROAT (SURFACE REGION OF NECK) / Unknown 08/10/2017 Ronna Starr APRN-[facility] - POINT OF CARE ORDERABLES documented in this encounter Visit Diagnoses Diagnosis Acute streptococcal pharyngitis- Primary Streptococcal sore throat documented in this encounter Care Teams Electronics Detail Draftsperson Relationship Specialty Start Date End Date Donna Kovacs MD [address] [place] [address] PCP - General Pediatrics 05/04/16 documented as of this encounter
--- OUTSIDE RECORDS SUMMARY | 2024-05-07 11:12 | XMS_ITS | Patient Health Summary ---
Author Organization [facility] Address [address] [place] [address] Care Team Providers Care Pallet Stone Inserter Name Role Phone Donna Kovacs MD Primary Care Provider Note from Formerly named [facility],non-owned Affiliates and Associated Physician Practices is amultiple site organization consisting of ambulatory clinics and hospital sitesin [place] and [place]. This disclosure is being madepursuant to the Care Everywhere program and may not contain all information available regarding this patient. Last updated 18.[facility] Allergies No known active allergies Medications Be aware that medications may not be up to date on this document. Always verify current medications with the patient. No known medications Active Problems Problem Noted Date Diagnosed Date Ultrasound for scr eening for growth restriction 10/03/2020 Social History Tobacco Use Types Packs/Day Years Used Date Smoking Tobacco: Never Smokeless Tobacco: Never Sex and Gender Information Value Date Recorded Sex Assigned at Not on file Gender Identity Not on file Sexual Orientation Not on file Last Filed Vital Signs Vital Sign Reading Time Taken Comments Blood Pressure 120/80 07/15/2019 9:41 AM TAVERN KEEPER Pulse 84 07/15/2019 9:41 AM TAVERN KEEPER Temperature 37.1 ??C (98.7 ??F) 07/15/2019 9:41 AM CS T Respiratory Rate 15 07/15/2019 9:41 AM TAVERN KEEPER Oxygen Saturation 97% 10/25/2018 11:54 AM CDT Inhaled Oxygen Concentration - - Weight 108.9 kg (240 lb) 07/15/2019 9:41 AM TAVERN KEEPER Height 167.6 cm (5' 6 ) 07/15/2019 9:41 AM TAVERN KEEPER Body Mass Index 38.74 07/15/2019 9:41 AM TAVERN KEEPER Procedures * SONOGRAM - COMPLETE(Performed 11/30/2022) Performed for Encounter for ultrasound to assess growth (HCC), BMI 40.0- 44.9, adult (HCC) * SONOGRAM - COMPLETE(Performed 11/16/2022) Performed for Ultrasound for screening for growth restriction (HCC), BMI 40.0-44.9,adult (HCC), H/O: , Class 3 obesity (HCC) * SONOGRAM - COMPLETE(Performed 10/12/2022) Performed for Encounter for ultrasound to assess growth (HCC), BMI 40.0- 44.9, adult (HCC) * SONOGRAM - COMPLETE(Performed 09/14/2022) Performed for Encounter for follow-up ultrasound of anatomy (HCC), Obesity, Class III, BMI 40-49.9 (morbid obesity) (HCC) * SONOGRAM - COMPLETE(Performed 08/17/2022) Performed for Encounter for anatomic survey (HCC), Class 3 obesity (HCC) * SONOGRAM - COMPLETE(Performed 07/17/2022) Performed for Encounter for anatomic survey (HCC), 19 weeks gestation of (HCC) * SONOGRAM - COMPLETE(Performed 11/04/2020) Performed for Ultrasound for screening for growth restriction (HCC) * SONOGRAM - COMPLETE(Performed 10/07/2020) Performed for Ultrasound for screening for growth restriction (HCC) * STREP A SCREEN - POINT OF CARE (AMB) STL(Performed 07/15/2019) Performed for Tonsillitis with exudate * STREP A SCREEN - POINT OF CARE (AMB) STL(Performed 10/25/2018) Performed for Acute ethmoidal sinusitis, recurrence not specified * STREP A SCREEN - POINT OF CARE (AMB) STL(Performed 08/10/2017) Performed for Acute streptococcal pharyngitis * STREP A SCREEN - POINT OF CARE (AMB) STL(Performed 08/12/2016) Performed for Strep throat * CULTURE RESPIRATORY UPPER(Performed 05/06/2016) Performed for Acute pharyngitis, unspecified etiology * STREP A SCREEN - POINT OF CARE (AMB) STL(Performed 05/06/2016) Performed for Acute pharyngitis, unspecified etiology * STREP A SCREEN - POINT OF CARE (AMB) STL(Performed 05/04/2016) Performed for Acute pharyngitis, unspecified etiology Results * SONOGRAM - COMPLETE (11/30/2022 12:56 PM CDT) Only the most recent of8 resultswithin the time period is included. Anatomical Region Laterality Modality Other 11/30/2022 12:5 6 PM CDT Narrative 11/30/2022 2:47 PM CDT ? [facility] ?[facility] ?PHONE: ??FAX: Pat. Name: ?WILLIAM MADRID Pat. No: ?[id number] Study Date: ?? 11/30/2022 ??12:56pm , Age: ? 2000, 22 Pregnancies: ?? 2, Para 1 Height: ? 66 in Weight: ? 261 lb LMP: ?Unknown GA by Base: ?? 38w1d ?? OVIDIO: 12/13/2022 GA Selected: ??38w1d (From [facility]) OVIDIO: ?12/13/2022 Referring MD: Yesy Nichole MD Mechanical Engineering Teacher: ??Lena Rizvi, MINERVA, RDJERE CPT4: ? 23627,57779 BMI: ?42.12 Hist/Ind: ? Class III obesity ?Prior ?LR Mallory (M), Completed anatomic survey ?Approximate LMP, irregular menses Heart Rate: 157 bpm Amniotic Fluid Index: 10.3cm (07.3-23.7) Q1: 4.2cm ??Q2: 2.8cm ??Q3: 3.4cm ??Q4: 0.0cm ?? Biophysical Profile: 12/25 Breathin ?? Tone: 2 ?? Movement: ??2 ?? AFV: ??2 EVAL, PLACENTA Presentation: cephalic Placenta: anterior Heart Rate: 157 bpm Amniotic Fluid Volume: normal CLINICAL SUMMARY IMPRESSION: ?? 1) Dang gestation, 38w1d 2) The amniotic fluid volume is within normal limits 3) Reassuring 8-point biophysical profile RECOMMEND: ?? Close maternal movement monitoring while awaiting admission for delivery Thank you for allowing us the opportunity to care for your patient. Divina Mcarthur MD <Electronic Signature> ??11/30/2022 02:46pm Paramjit LEE ORDERABLES * STREP A SCREEN - POINT OF CARE (AMB) STL (07/15/2019) Only the most recent of6 resultswithin the time period is included. Strep A Rapid POCT Negative Negative Strep A Internal Control Present Lot # [id number] Expiration Date 01/17/2021 Throat ENTIRE THROAT (SURFACE REGION OF NECK) / Unknown 07/15/2019 Ronna Starr APRN-BULK DRIVER LAB - POINT OF CARE ORDERABLES * (ABNORMAL) [facility] Throat Culture (05/06/2016 11:46 AM TAVERN KEEPER) Upper Respiratory Culture Final report(A) [facility] ACCOUNT BILL Result 1 (A) [facility] ACCOUNT BILL Comment: Beta hemolytic Streptococcus, group C Moderate growth Penicillin and ampicillin are drugs of choice for treatment of beta-hemolytic streptococcal infections. Susceptibility testing of penicillins and other beta-lactam agents approved by the FDA for treatment of beta-hemolytic streptococcal infections need not be performed routinely because nonsusceptible isolates are extremely rare in any beta-hemolytic streptococcus and have not been reported for Streptococcus pyogenes (group A). (CLSI 2011) Microbiology ENTIRE THROAT (SURFACE REGION OF NECK) / Unknown 05/06/2016 11:46 AM TAVERN KEEPER 05/07/2016 Narrative Resulting Agency Comment [facility] [place] [id number] [facility] ??[facility] [id number] Rosemary Segura APRN-BULK DRIVER LAB - MICROBI OLOGY ORDERABLES [facility] ACCOUNT BILL [address] [place] [address] Care Teams Pallet Stone Inserter Relationship Specialty Start Date End Date Donna Kovacs MD [address] [place] [address] PCP - General Pediatrics 05/04/16
--- OUTSIDE RECORDS SUMMARY | 2024-05-07 11:12 | XMS_ITS | Clinical Summary ---
Author Organization [facility] Address [address] [place] [address] Care Team Providers Care Wood Setter Name Role Phone Donna Kovacs MD Primary Care Provider Source Comments [facility],non-owned Affiliates and Associated Physician Practices is amultiple site organization consisting of ambulatory clinics and hospital sitesin [place], [place], [place] and [place]. This disclosure is being madepursuant to the Care Everywhere program and may not contain all information available regarding this patient. Last updated 18.[facility] Allergies No known active allergies Medications Be [...] Comments Blood Pressure 120/80 07/15/2019 9:41 AM EDUCATIONAL RESOURCE COORDINATOR Pulse 84 07/15/2019 9:41 AM EDUCATIONAL RESOURCE COORDINATOR Temperature 37.1 ??C (98.7 ??F) 07/15/2019 9:41 AM CS T Respiratory Rate 15 07/15/2019 9:41 AM EDUCATIONAL RESOURCE COORDINATOR Oxygen Saturation 97% 10/25/2018 11:54 AM CDT Inhaled Oxygen Concentration - - Weight 108.9 kg (240 lb) 07/15/2019 9:41 AM EDUCATIONAL RESOURCE COORDINATOR Height 167.6 cm (5' 6 ) 07/15/2019 9:41 AM EDUCATIONAL RESOURCE COORDINATOR Body Mass Index 38.74 07/15/2019 9:41 AM EDUCATIONAL RESOURCE COORDINATOR Plan of Treatment Health Maintenance Due Date Last Done Comments PAP SMEAR 2000 HIV SCREENING 2014 HPV VACCINE (1 - 3-dose series) 2014 CHLAMYDIA/GONORRHEA SCREENING 2015 HEPATITIS C SCREENING 07/06/2017 DTAP/TDAP/TD VACCINES (1 - Tdap) 2018 HEPATITIS B VACCINE (1 of 3 - 19+ 3-dose series) 2018 DEPRESSION SCREENING 05/20/2023 COVID-19 VACCINE (2 - 2023-2 5 season) 2024 09/10/2020 INFLUENZA VACCINE (#1) 2024 02/23/2020 ZOSTER VACCINE (1 of 2) 2049 HIB VACCINE Aged Out No longer eligi ble based on patient's age to complete this topic MENINGOCOCCAL VACCINE Aged Out No jordan sneha eligible based on patient's age to complete this topic PNEUMOCOCCAL VACCINE Aged Out No long er eligible based on patient's age to complete this topic Care Teams Wood Setter Relationship Specialty Start Date End Date Donna Kovacs MD [address] [place] [address] PCP - General Pediatrics 05/04/16
--- OUTSIDE RECORDS SUMMARY | 2024-05-07 11:12 | XMS_ITS | Encounter Summary ---
Author Organization [facility] Address [address] [facility] [address] [place] [address] Care Team Providers Care Substation Operator Helper Name Role Phone Donna Kovacs MD Primary Care Provider Reason for Referral * (Routine) - Closed Specialty Diagnoses / Procedures Referred By Contac t Referred To Contact Diagnoses Ultrasound for screening for growth restriction (HCC) BMI 40.0-44.9, adult (HCC) H/O: Class 3 obesity Procedures SONOGRAM - COMPLETE Juan David Edge MD [address] [address] Referral ID Status Reason Start Date Expiration Date Visits Re quested Visits Authorized [id number] Closed 11/15/2022 11/15/2023 1 1 * (Routine) - Closed Specialty Diagnoses / Procedures Referred By Contac t Referred To Contact Diagnoses Ultrasound for screening for growth restriction (HCC) BMI 40.0-44.9, adult (HCC) H/O: Class 3 obesity Procedures SONOGRAM - COMPLETE Juan David Edge MD [address] [address] Referral ID Status Reason Start Date Expiration Date Visits Re quested Visits Authorized [id number] Closed 11/15/2022 11/15/2023 1 1 Reason for Visit * Reason Comments Biophysical Profile Encounter Details Date Type Department Care Team (Latest Contact Info) Description 11/16/2022 12:41 PM CDT - 11/16/2022 11:59 PM CDT Hospital Encounter [facility] Maternal & Care [address] [place], [place] [id number] Paramjit Harrell MD Gross, Gilad A, MD [address] [place] [address] Divina Mcarthur MD [address] [place], [place] [id number] Maternal Medicine Discharge Disposition: Home or Self Care Social [...] Associated Diagnosis Comments SONOGRAM - COMPLETE Routine 11/16/2022 1 2:47 PM CDT Ultrasound for screening for growth restriction (HCC) BMI 40.0-44.9, adult (HCC) H/O: Class 3 obesity (HCC) documented in this encounter Results * SONOGRAM - COMPLETE (11/16/2022 12:47 PM CDT) Anatomical Region Laterality Modality Other 11/16/2022 12:4 7 PM CDT Narrative 11/16/2022 1:26 PM CDT ? [facility] ?[facility] Care Center ?PHONE: ??FAX: Pat. Name: ?WILLIAM MADRID Skyler Pat. No: ?[id number] Study Date: ?? 11/16/2022 ??12:47pm , Age: ? 2000, 22 Pregnancies: ?? 2, Para 1 Height: ? 66 in Weight: ? 261 lb LMP: ?Unknown GA by Base: ?? 36w1d ?? OVIDIO: 12/13/2022 GA by US: ? 35w2d ?? OVIDIO: 12/19/2022 GA Selected: ??36w1d (From [facility]) OVIDIO: ?12/13/2022 Referring MD: Yesy Nichole MD Chicken Tender: ??Sheeba Orourke RDMS CPT4: ? 84734,20715 BMI: ?42.12 Hist/Ind: ? Class III obesity ?Prior ?LR cfDNA (M), Completed anatomic survey ?Approximate LMP, irregular menses MEASUREMENTS & AGE ? GROWTH EVALUATION Measurement ??GA ? Range ? Srce %for GA Ratios ----- ---- ------- BPD ??8.5 cm 34w2d (38g9d-63b8w) Hadl BPD 12% FL/BPD 0.81 (0.71 - 0.87) HC ??32.1 cm 36w1d (77d3u-86h7f) Hadl HC ??20% FL/AC ??0.22 (0.20 - 0.24) AC ??32.0 cm 35w6d (03w8r-43l5s) Hadl AC ??52% HC/AC ??1.00 (0.92 - 1.11) FL ?? 6.9 cm 35w4d (73d4d-08y2k) Hadl FL ??29% CI ? 0.74 (0.70 - 0.86) HL ?? 5.9 cm 34w1d (19j5r-29n3c) Loco HL ??16% GA for sonogram 35w2d (56n2z-20j9w) ?? Weight Estimate: based on (BPD,HC,AC,FL) Hadlock ?Weight: 2733 gm (2334-3132gm) Had ? : 6lbs, 0oz ? Normal: 2844 gm (2133- 3554gm) Had ? Wt% ? 38% for 36w1d Heart Rate: 138 bpm Amniotic Fluid Index: 14.5cm (07.7-24.8) Q1: 4.7cm ??Q2: 3.9cm ??Q3: 2.1cm ??Q4: 3.8cm ?? Biophysical Profile: 12/25 Breathin ?? Tone: 2 ?? Movement: ??2 ?? AFV: ??2 EVAL, PLACENTA Presentation: cephalic Placenta: anterior Heart Rate: 138 bpm Amniotic Fluid Volume: normal Anatomy!Normal!Abnormal!Suboptimal!Prev. Seen!Comments Situs ?! ?? x ??! ?! ?! ?! Stomach ?! ?? x ??! ?! ?! ?! Kidneys ?! ?? x ??! ?! ?! ?! Bladder ?! ?? x ??! ?! ?! ?! CLINICAL SUMMARY No abnormalities were detected during today's limited review of the anatomy. IMPRESSION: ?? 1) Dang gestation, 36w1d 2) The accuracy of weight estimates is highly limited at / near term and at a higher BMI but there is no evidence of abnormal growth based on today's biometry 3) The amniotic fluid volume is within normal limits 4) Reassuring biophysical profile NOTE: Ultrasound does not allow detection of all structural or genetic abnormalities. ?? RECOMMEND: ?? Weekly 8-point BPPs while awaiting admission for delivery around 39 weeks Thank you for allowing us the opportunity to care for your patient. Divina Mcarthur MD <Electronic Signature> ??11/16/2022 01:26pm Juan David Edge MD [facility] ORDERABLES documented in this encounter Visit Diagnoses Diagnosis Ultrasound for screening for growth restriction (HCC)- Primary screening for growth retardation using ultrasonics BMI 40.0-44.9, adult (HCC) Body Mass Index 40.0-44.9, adult H/O: Other postprocedural status Class 3 obesity documented in this encounter Care Teams Substation Operator Helper Relationship Specialty Start Date End Date Donna Kovacs MD [address] [place] [id number] PCP - General Pediatrics 05/04/16 documented as of this encounter
--- OUTSIDE RECORDS SUMMARY | 2024-05-07 11:12 | XMS_ITS | Encounter Summary ---
Author Organization [facility] Address [address] [place] [address] Care Team Providers Care Checker Loader Name Role Phone Donna Kovacs MD Primary Care Provider [phone] Reason for Visit * Reason Comments Sore Throat Sinusitis Encounter Details Date Type Department Care Team (Late st Contact Info) Description 10/25/2018 12:00 PM CDT Office Visit [facility] [address] [place] [id number] Provider, Bharath Exp [address] Acute ethmoidal sinusitis, recurrence not specified (Primary Dx) Social History Tobacco Use Types Packs/Day Years Used Date Smoking Tobacco: Never Smokeless Tobacco: Never Sex and Gender Information Value Date Recorded Sex Assigned at Not on file Gender Identity Not on file Sexual Orientation Not on file documented as of this encounter Last Filed Vital Signs Vital Sign Reading Time Taken Comments Blood Pressure 116/78 10/25/2018 11:54 AM CDT Pulse 89 10/25/2018 11:54 AM CDT Temperature 36.6 ??C (97.9 ??F) 10/25/2018 11:54 AM C DT Respiratory Rate 17 10/25/2018 11:54 AM CDT Oxygen Saturation 97% 10/25/2018 11:54 AM CDT Inhaled Oxygen Concentration - - Weight 108.9 kg (240 lb) 10/25/2018 11:54 AM CDT Height 167.6 cm (5' 6 ) 10/25/2018 11:54 AM CDT Body Mass Index 38.74 10/25/2018 11:54 AM CDT documented in this encounter Patient Instructions * Patient Instructions* Deepa Nuñez, FILTER PRESS OPERATOR-KENNEL OPERATOR - 10/25/2018 12:08 PM CDT Images from the original note were not included. Drink plenty of fluids to help thin secretions. May take Tylenol or Ibuprofen for fever or pain as directed per package instructions May take OTC antihistamines such as Zyrtec, Malaika, or Claritin as directed per package instructions for allergy relief Recommend use of OTC intranasal saline irrigation daily per package instructions Recommend daily use of Flonase or Nasonex, as directed per package instructions Use alternate method of control for the entire course of antibiotics and one week after the last dose of antibiotics, if applicable. Reviewed education materials and instructions with patient and answered all questions. Follow up with Donna Whiteside MD if symptoms worsen or do not completely resolve. GO TO EMERGENCY ROOM OR CALL 911 WITH ANY OF THE FOLLOWING SYMPTOMS: HIGH, PERSISTENT FEVER >102; SWELLING, INFLAMMATION, OR REDNESS AROUND EYES, ABNORMAL EYE MOVEMENTS, VISION CHANGES (DOUBLE VISION OR IMPAIRED VISION); SEVERE HEADACHE; ALTERED MENTAL STATUS. THESE ARE SIGNS OF A RARE, BUT SERIOUS COMPLICATION AND REQUIRES IMMEDIATE EMERGENCY ATTENTION. Sinusitis PHYSICIAN RELATIONS REPRESENTATIVE: Sinusitis is inflammation or infection of your sinuses. It is most often caused by a virus. Acute sinusitis may last up to 12 weeks. Chronic sinusitis lasts longer than 12 weeks. Recurrent sinusitis means you have 4 or more times in 1 year. Common symptoms include the following: ?? Fever ?? Pain, pressure, redness, or swelling around the forehead, cheeks, or eyes ?? Thick yellow or green discharge from your nose ?? Tenderness when you touch your face over your sinuses ?? Dry cough that happens mostly at night or when you lie down ?? Headache and face pain that is worse when you lean forward ?? Tooth pain, or pain when you chew Seek care immediately if: ?? Your eye and eyelid are red, swollen, and painful. ?? You cannot open your eye. ?? You have vision changes, such as double vision. ?? Your eyeball bulges out or you cannot move your eye. ?? You are more sleepy than normal, or you notice changes in your ability to think, move, or talk. ?? You have a stiff neck, a fever, or a bad headache. ?? You have swelling of your forehead or scalp. Contact your healthcare provider if: ?? Your symptoms do not improve after 3 days. ?? Your symptoms do not go away after 10 days. ?? You have nausea and are vomiting. ?? Your nose is bleeding. ?? You have questions or concerns about your condition or care. Treatment for sinusitis: Your symptoms may go away on their own. Your healthcare provider may recommend watchful waiting for up to 10 days before starting antibiotics. You may need any of the following: ?? Acetaminophen decreases pain and fever. It is available without a doctor's order. Ask how much to take and how often to take it. Follow directions. Read the labels of all other medicines you are using to see if they also contain acetaminophen, or ask your doctor or pharmacist. Acetaminophen can cause liver damage if not taken correctly. Do not use more than 4 grams (4,000 milligrams) total of acetaminophen in one day. ?? NSAIDs , such as ibuprofen, help decrease swelling, pain, and fever. This medicine is available with or without a doctor's order. NSAIDs can cause stomach bleeding or kidney problems in certain people. If you take blood thinner medicine, always ask your healthcare provider if NSAIDs are safe foryou. Always read the medicine label and follow directions. ?? Nasal steroid sprays may help decrease inflammation in your nose and sinuses. ?? Decongestants help reduce swelling and drain mucus in the nose and sinuses. They may help you breathe easier. ?? Antihistamines help dry mucus in the nose and relieve sneezing. ?? Antibiotics help treat or prevent a bacterial infection. ?? Take your medicine as directed. Contact your healthcare provider if you think your medicine is not helping or if you have side effects. Tell him or her if you are allergic to any medicine. Keep a list of the medicines, vitamins, and herbs you take. Include the amounts, and when and why you take them. Bring the list or the pill bottles to follow-up visits. Carry your medicine list with you in case of an emergency. Self-care: ?? Rinse your sinuses. Use a sinus rinse device to rinse your nasal passages with a saline (salt water) solution or distilled water. Do not use tap water. This will help thin the mucus in your nose and rinse away pollen and dirt. It will also help reduce swelling so you can breathe normally. Ask your healthcare provider how often to do this. ?? Breathe in steam. Heat a bowl of water until you see steam. Lean over the bowl and make a tent over your head with a large towel. Breathe deeply for about 20 minutes. Be careful not to get too close to the steam or burn yourself. Do this 3 times a day. You can also breathe deeply when you take ahot shower. ?? Sleep with your head elevated. Place an extra pillow under your head before you go to sleep to help your sinuses drain. ?? Drink liquids as directed. Ask your healthcare provider how much liquid to drink each day and which liquids are best for you. Liquids will thin the mucus in your nose and help it drain. Avoid drinks that contain alcohol or caffeine. ?? Do not smoke, and avoid secondhand smoke. Nicotine and other chemicals in cigarettes and cigars can make your symptoms worse. Ask your healthcare provider for information if you currently smoke and need help to quit. E-cigarettes or smokeless tobacco still contain nicotine. Talk to your healthcare provider before you use these products. Prevent the spread of germs that cause sinusitis: Wash your hands often with soap and water. Wash your hands after you use the bathroom, change a child's diaper, or sneeze. Wash your hands before youprepare or eat food. Follow up with your healthcare provider as directed: You may be referred to an ear, nose, and throat specialist. Write down your questions so you remember to ask them during your visits. ?? Copyright [employer] 2019 Information is for End User's use only and may not be sold, redistributed or otherwise used for commercial purposes. All illustrations and images included in CareNotes?? are the copyrighted property of [employer], [employer]. or [employer] The above information is an nursing aide only. It is not intended as medical advice for individual conditions or treatments. Talk to your doctor, nurse or pharmacist before following any medical regimen to see if it is safe and effective for you. documented in this encounter Progress Notes * Deepa Nuñez APRN-CNP - 10/25/2018 11:57 AM CDT Justine Savage is a 18 year old female who presents to clinic today for Chief Complaint Patient presents with ??? Sore Throat ??? Sinusitis . her PCP is Donna Whiteside MD. Justine Savage is here for evaluation of sore throat, congestion, post nasal drip, coryza,fever with Tmax to 100.5-101.9, sneezing, bilateral ear pressure/pain, sinus pressure, productive cough Color: minimal green. She states the Onset was: 2 days and course is gradually worsening. She is drinking plenty of fluids. She is a non-smoker. OTC- cold medications with little relief. Past Medical History: Diagnosis Date ??? NEGATIVE PAST MEDICAL HISTORY - SEE PROBLEM LIST No family history on file. Current Outpatient Prescriptions Medication Sig Dispense Refill ??? amoxicillin-clavulanate (AUGMENTIN) 875-125 MG tablet Take 1 tablet by mouth 2 times daily withmorning and evening meal for 10 days Reasons: Sinus Irritation and Congestion 20 tablet 0 ??? fluticasone propionate (FLONASE) 50 MCG/ACT nasal spray [place] 2 sprays into each nostril once daily Reasons: Allergic Rhinitis 1 bottles 0 No current facility-administered medications for this visit. No Known Allergies Social History Social History ??? Marital status: Single Social History Main Topics ??? Smoking status: Never Smoker ??? Smokeless tobacco: Never Used Review of Systems Pertinent items are noted in HPI Constitutional: Positive for fatigue, fevers, Negative for chills, malaise. Eyes: Negative Ears, nose, mouth, and throat: Positive for earaches bilaterally, sinus trouble, persistent sore throat, congestion Respiratory: Positive for acute cough, green sputum production, pleuritic chest pain, Negative for shortness of breath Cardiovascular: Negative Neurological: Positive for headaches Objective: BP 116/78 (BP SITE: RIGHT ARM, BP POSITION: SITTING) Pulse 89 Temp 97.9 ??F (36.6 ??C) (Oral) Resp 17 Ht 1.676 m (5' 6 ) Wt 108.9 kg (240 lb) SpO2 97% BMI 38.74 kg/m2 General appearance: alert, cooperative, no distress, oriented to person, place, and time Head: normocephalic, without trauma Eyes: sclera and conjunctiva clear Ears: Right tympanic membrane - air/fluid interface visualized; Left tympanic membrane - air/fluid interface visualized Nose: mucosa erythematous and swollen, clear rhinorrhea, ethmoidal tenderness bilaterally Throat: mild oropharyngeal erythema, tonsillar hypertrophy 2+ Neck: supple Nodes: no cervical adenopathy Lungs: breath sounds normal and symmetric; no rales or wheezes Heart: regular rhythm Neurologic: mental status normal Assessment: Encounter Diagnosis Name Primary? Acute ethmoidal sinusitis, recurrence not specified Yes Plan: Work note provided to patient Drink plenty of fluids to help thin secretions. May take Tylenol or Ibuprofen for fever or pain as directed per package instructions May take OTC antihistamines such as Zyrtec, Malaika, or Claritin as directed per package instructions for allergy relief Recommend use of OTC intranasal saline irrigation four times daily as needed, followed by daily useof Flonase or Nasonex as directed per package instructions Use alternate method of control for the entire course of antibiotics and one week after the last dose of antibiotics, if applicable. Reviewed education materials and instructions with patient and answered all questions. Justine Savage verbalized understanding and agrees with plan. Follow up with Donna Whiteside MD if symptoms worsen or do not completely resolve. GO TO EMERGENCY ROOM OR CALL 911 WITH ANY OF THE FOLLOWING SYMPTOMS: HIGH, PERSISTENT FEVER >102; SWELLING, INFLAMMATION, OR REDNESS AROUND EYES, ABNORMAL EYE MOVEMENTS, VISION CHANGES (DOUBLE VISION OR IMPAIRED VISION); SEVERE HEADACHE; ALTERED MENTAL STATUS. THESE ARE SIGNS OF A RARE, BUT SERIOUS COMPLICATION AND REQUIRES IMMEDIATE EMERGENCY ATTENTION. Orders Placed This Encounter ??? STREP A SCREEN ??? amoxicillin-clavulanate (AUGMENTIN) 875-125 MG tablet Sig: Take 1 tablet by mouth 2 times daily with morning and evening meal for 10 days Reasons: Sinus Irritation and Congestion Dispense: 20 tablet Refill: 0 ??? fluticasone propionate (FLONASE) 50 MCG/ACT nasal spray Sig: [place] 2 sprays into each nostril once daily Reasons: Allergic Rhinitis Dispense: 1 bottles Refill: 0 Recent Results (from the past 24 hour(s)) STREP A SCREEN Collection Time: 10/25/18 12:00 AM Result Value Ref Range Strep A Rapid POCT Negative Negative Strep A Internal Control Present Lot # [id number] Expiration Date 04/18/20 Deepa Nuñez APRN, FNP-BC 10/25/2018 12:10 PM documented in this encounter Plan of Treatment Not on file documented as of this encounter Procedures Procedure Name Priority Date/Time Associated Diagnosis Comments STREP A SCREEN - POINT OF CARE (AMB) STL Routine 10/25/2018 Acute ethmoidal sinusitis, recurrence not specified documented in this encounter Results * STREP A SCREEN (10/25/2018) Strep A Rapid POCT Negative Negative Strep A Internal Control Present Lot # [id number] Expiration Date 04/18/20 Throat ENTIRE THROAT (SURFACE REGION OF NECK) / Unknown 10/25/2018 Deepa [facility] - POINT OF CA RE ORDERABLES documented in this encounter Visit Diagnoses Diagnosis Acute ethmoidal sinusitis, recurrence not specified- Primary documented in this encounter Care Teams Checker Loader Relationship Specialty Start Date End Date Donna Kovacs MD [address] [place] [address] PCP - General Pediatrics 05/04/16 documented as of this encounter
--- OUTSIDE RECORDS SUMMARY | 2024-05-07 11:12 | XMS_ITS | Encounter Summary ---
Author Organization [facility] Address [address] [facility] [place] [address] Care Team Providers Care Cupola Operator Insulation Name Role Phone Donna Kovacs MD Primary Care Provider [phone] Reason for Referral * (Routine) - Closed Specialty Diagnoses / Procedures Referred By Contac t Referred To Contact Diagnoses Encounter for ultrasound to assess growth (HCC) BMI 40.0-44.9, adult (HCC) Procedures SONOGRAM - COMPLETE Paramjit Harrell MD [address] [facility] [address] [place] [address] Referral ID Status Reason Start Date Expiration Date Visits Re quested Visits Authorized [id number] Closed 10/09/2022 10/09/2023 2 2 Reason for Visit * Reason Comments Ultrasound Encounter Details Date Type Department Care Team (Latest Contact Info) Description 11/30/2022 12:40 PM CDT - 11/30/2022 11:59 PM CDT Hospital Encounter [facility] [address] [id number] Paramjit Harrell MD Gross, Gilad A, MD [address] [facility] [address] [place], [place] [phone] Divina Mcarthur MD [address] [facility] [address] [place], [place] [phone] Discharge Disposition: Home or Self Care Social [...] Associated Diagnosis Comments SONOGRAM - COMPLETE Routine 11/30/2022 1 2:56 PM CDT Encounter for ultrasound to assess growth (HCC) BMI 40.0-44.9, adult (HCC) documented in this encounter Results * SONOGRAM - COMPLETE (11/30/2022 12:56 PM CDT) Anatomical Region Laterality Modality Other 11/30/2022 12:5 6 PM CDT Narrative 11/30/2022 2:47 PM CDT ? [facility] ?PHONE: ??FAX: Pat. Name: ?WILLIAM MADRID. No: ?[id number] Study Date: ?? 11/30/2022 ??12:56pm , Age: ? 2000, 22 Pregnancies: ?? 2, Para 1 Height: ? 66 in Weight: ? 261 lb LMP: ?Unknown GA by Base: ?? 38w1d ?? OVIDIO: 12/13/2022 GA Selected: ??38w1d (From [facility]) OVIDIO: ?12/13/2022 Referring MD: Yesy Nichole MD Lifts And Cranes Inspector: ??Lena Rizvi, ELIZMS, RDCS CPT4: ? 61147,31034 BMI: ?42.12 Hist/Ind: ? Class III obesity [...] Mcarthur MD <Electronic Signature> ??11/30/2022 02:46pm Paramjit Harrell MD [facility] ORDERABLES documented in this encounter Visit Diagnoses Diagnosis Ultrasound for screening for growth restriction (HCC)- Primary screening for growth retardation using ultrasonics H/O: Other postprocedural status Class 3 obesity Encounter for ultrasound to assess growth (HCC) BMI 40.0-44.9, adult (HCC) Body Mass Index 40.0-44.9, adult documented in this encounter Care Teams Cupola Operator Insulation Relationship Specialty Start Date End Date Donna Kovacs MD [address] [place] [id number] PCP - General Pediatrics 05/04/16 documented as of this encounter
--- OUTSIDE RECORDS SUMMARY | 2024-05-07 11:12 | XMS_ITS | Encounter Summary ---
Author Organization [facility] Address [address] [address] Care Team Providers Care Clinical Supervisor Name Role Phone Donna Kovacs MD Primary Care Provider Reason for Visit * Reason Comments Sore Throat Ear Pain Encounter Details Date Type Department Care Team (Late st Contact Info) Description 08/12/2016 10:20 AM CDT Office Visit [facility] [address] [place] [id number] Provider, Bharath Exp [address] Strep throat (Primary Dx) Social History Tobacco Use Types Packs/Day Years Used Date Smoking Tobacco: Never Sex and Gender Information Value Date Recorded Sex Assigned at Not on file Gender Identity Not on file Sexual Orientation Not on file documented as of this encounter Last Filed Vital Signs Vital Sign Reading Time Taken Comments Blood Pressure 118/78 08/12/2016 10:29 AM CDT Pulse 83 08/12/2016 10:29 AM CDT Temperature 36.8 ??C (98.2 ??F) 08/12/2016 10:29 AM C DT Respiratory Rate 18 08/12/2016 10:29 AM CDT Oxygen Saturation 98% 08/12/2016 10:29 AM CDT Inhaled Oxygen Concentration - - Weight 101.2 kg (223 lb) 08/12/2016 10:29 AM CDT Height 165.1 cm (5' 5 ) 08/12/2016 10:29 AM CDT Body Mass Index 37.11 08/12/2016 10:29 AM CDT Body Mass Index Percentile 98.61% 08/12/2016 10: 29 AM CDT Growth Chart: [facility] [place] (Girls, 2- 20 Years) documented in this encounter Patient Instructions * Patient Instructions* Ryan Singh APRN-J2EE CONSULTANT - 08/12/2016 10:37 AM CDT Images from the original note were not included. Strep Throat in Children WHAT YOU NEED TO KNOW: What is strep throat? Strep throat is a throat infection caused by bacteria. It is easily spread from person to person. What are the signs and symptoms of strep throat? ?? Sore, red, and swollen throat ?? Fever and headache ?? Upset stomach, abdominal pain, or vomiting ?? White or yellow patches or blisters in the back of the throat ?? Throat pain when he or she swallows ?? Tender, swollen lumps on the sides of the neck or jaw How is a strep throat diagnosed? Your child's healthcare provider may swab the back of your child'sthroat to test for bacteria. You may get the results in minutes or the swab may be sent to a lab. How is strep throat treated? ?? Antibiotics treat a bacterial infection. Your [...] without direction from your child's healthcare provider. How can I manage my child's symptoms? ?? Give your child throat lozenges or [...] dryness and pain in your child's throat. How can I help prevent the spread of strep throat? ?? Wash your and your child's hands often. Use soap and water or an alcohol- based hand rub. ?? Do not let your child share food or drinks. Replace your child's toothbrush after he has taken antibiotics for 24 hours. Call 911 for any of the following: ?? Your child has trouble breathing. When should I seek immediate care? ?? Your child's signs and symptoms continue for more than 5 to 7 days. ?? Your child is tugging at his or her ears or has ear pain. ?? Your child is drooling because he or she cannot swallow their spit. ?? Your child has blue lips or fingernails. When should I contact my child's healthcare provider? ?? Your child has a fever. ?? Your child has a rash that is itchy or swollen. ?? Your child's signs and symptoms get worse or do not get better, even after medicine. ?? You have questions or concerns about your child's condition or care. CARE AGREEMENT: You have the right to help plan your child's care. Learn about your child's health condition and how it may be treated. Discuss treatment options with your child's caregivers to decide what care you want for your child. The above information is an educational therapist only. It is not intended as medicaladvice for individual conditions or treatments. Talk to your doctor, nurse or pharmacist before following any medical regimen to see if it is safe and effective for you. ?? 2016 [employer]. Information is for End User's use only and may not be sold, redistributed or otherwise used for commercial purposes. All illustrations and images included in CareNotes?? are the copyrighted property of [employer]. or [employer]. documented in this encounter Progress Notes * Ryan Singh APRN-CNP - 08/12/2016 10:33 AM CDT [facility] Chief Complaint Patient presents with ??? Sore Throat ??? Ear Pain SUBJECTIVE: General History provided by: 16 y/o f. This is a new problem. The current episode started more than 1 week ago. The problem occurs constantly. The pain is moderate. Body Location: sore throat, ear pain The symptoms are aggravated by swallowing. The treatment provided mild relief. No past medical history on file. No current outpatient prescriptions on file prior to visit. No current facility-administered medications on file prior to visit. No past surgical history on file. History Social History ??? Marital status: Single Spouse name: N/A ??? Number of children: N/A ??? Years of education: N/A Occupational History ??? Not on file. Social History Main Topics ??? Smoking status: Never Smoker ??? Smokeless tobacco: Not on file ??? Alcohol use: Not on file ??? Drug use: Not on file ??? Sexual activity: Not on file Other Topics Concern ??? Not on file Social History Narrative ??? No narrative on file No family history on file. Current Outpatient Prescriptions Medication Sig Dispense Refill ??? amoxicillin (AMOXIL) 875 MG tablet Take 1 Tab by mouth 2 times daily for 10 days Reasons: Throat Infection 20 Tab 0 No current facility-administered medications for this visit. No Known Allergies REVIEW OF SYSTEMS: Review of Systems Constitutional: Negative. HENT: Positive for congestion, ear pain and sore throat. Respiratory: Negative. Cardiovascular: Negative. Gastrointestinal: Negative. Musculoskeletal: Negative. Skin: Negative. OBJECTIVE: General appearance: alert, well appearing, and in no distress. BP 118/78 (BP SITE: LEFT ARM, BP POSITION: SITTING, BP CUFF SIZE: Adult) Pulse 83 Temp 98.2 ??F (Oral) Resp 18 Ht 1.651 m (5' 5 ) Wt 101.2 kg (223 lb) SpO2 98% BMI 37.11 kg/m2 Physical Exam Constitutional: She is oriented to person, place, and time and well-developed, well-nourished, and in no distress. HENT: Posterior buccal mucosa erythema, edema, Tm's bulging, no fluid or erythema Neck: Normal range of motion. Neck supple. Cardiovascular: Normal rate and regular rhythm. Abdominal: Soft. Bowel sounds are normal. Lymphadenopathy: She has no cervical adenopathy. Neurological: She is alert and oriented to person, place, and time. ASSESSMENT: Office Visit on 08/12/16 STREP A SCREEN Result Value Ref Range Strep A Rapid Positive (Abnormal) Negative Strep A INTERNAL CONTROL Present Lot Number [id number] Expiration Date 03/30/18 Encounter Diagnosis Name Primary? Strep throat Yes PLAN: Orders Placed This Encounter ??? STREP A SCREEN ??? amoxicillin (AMOXIL) 875 MG tablet Sig: Take 1 Tab by mouth 2 times daily for 10 days Reasons: Throat Infection Dispense: 20 Tab Refill: 0 documented in this encounter Plan of Treatment Not on file documented as of this encounter Procedures Procedure Name Priority Date/Time Associated Diagnosis Comments STREP A SCREEN - POINT OF CARE (AMB) STL Routine 08/12/2016 10:36 AM CDT Strep throat documented in this encounter Results * (ABNORMAL) STREP A SCREEN (08/12/2016 10:36 AM CDT) Strep A Rapid POCT Positive(A) Negative Strep A Internal Control Present Lot # [id number] Expiration Date 03/30/18 Throat ENTIRE THROAT (SURFACE REGION OF NECK) / Unknown 08/12/2016 10:36 AM CDT Ryan Holtgrave RETAIL EVENT ASSISTANT-J2EE CONSULTANT LAB - POINT OF CARE ORDERABLES documented in this encounter Visit Diagnoses Diagnosis Strep throat- Primary Streptococcal sore throat documented in this encounter Care Teams Clinical Supervisor Relationship Specialty Start Date End Date Donna Kovacs MD [address] [place] [address] PCP - General Pediatrics 05/04/16 documented as of this encounter
--- OUTSIDE RECORDS SUMMARY | 2024-05-07 11:12 | XMS_ITS | Encounter Summary ---
Author Organization [facility] Address [address] [place] [address] Care Team Providers Care Complaint Coordinator Name Role Phone Donna Kovacs MD Primary Care Provider [phone] Reason for Referral * (Routine) - Closed Specialty Diagnoses / Procedures Referred By Contac t Referred To Contact Diagnoses Encounter for ultrasound to assess growth (HCC) BMI 40.0-44.9, adult (HCC) Procedures SONOGRAM - COMPLETE Paramjit Harrell MD [address] [address] Referral ID Status Reason Start Date Expiration Date Visits Re quested Visits Authorized [id number] Closed 10/09/2022 10/09/2023 2 2 * (Routine) - Closed Specialty Diagnoses / Procedures Referred By Contac t Referred To Contact Diagnoses Encounter for ultrasound to assess growth (HCC) BMI 40.0-44.9, adult (HCC) Procedures SONOGRAM - COMPLETE Paramjit Harrell MD [address] [place] [address] [address] Referral ID Status Reason Start Date Expiration Date Visits Re quested Visits Authorized [id number] Closed 10/09/2022 10/09/2023 2 2 Encounter Details Date Type Department Care Team (Latest Contact Info) Description 10/12/2022 12:57 PM CDT - 10/12/2022 11:59 PM CDT Hospital Encounter [facility] [address] [place] [address] Paramjit Harrell MD Discharge Disposition: Home or Self Care Social [...] Associated Diagnosis Comments SONOGRAM - COMPLETE Routine 10/12/2022 1 :02 PM CDT Encounter for ultrasound to assess growth (HCC) BMI 40.0-44.9, adult (HCC) documented in this encounter Results * SONOGRAM - COMPLETE (11/30/2022 12:56 PM CDT) Anatomical Region Laterality Modality Other 11/30/2022 12:5 6 PM CDT Narrative 11/30/2022 2:47 PM CDT ? [facility][NOTE 3] ?[facility]aternal and Care Center ?PHONE: ??FAX: Pat. Name: ?WILLIAM MADRID. No: ?[id number] Study Date: ?? 11/30/2022 ??12:56pm , Age: ? 2000, 22 Pregnancies: ?? 2, Para 1 Height: ? 66 in Weight: ? 261 lb LMP: ?Unknown GA by Base: ?? 38w1d ?? OVIDIO: 12/13/2022 GA Selected: ??38w1d (From [facility]) OVIDIO: ?12/13/2022 Referring MD: Yesy Nichole MD Chief Vendor Quality: ??Lena Rizvi, RDMS, RDCS CPT4: ? 45486,25555 BMI: ?42.12 Hist/Ind: ? Class III obesity [...] <Electronic Signature> ??11/30/2022 02:46pm Paramjit Harrell MD [facility] ORDERABLES * SONOGRAM - COMPLETE (10/12/2022 1:02 PM CDT) Anatomical Region Laterality Modality Other 10/12/2022 1:02 PM CDT Narrative 10/12/2022 1:45 PM CDT ? [facility] ? Maternal & Care Center ?PHONE: ??FAX: Pat. Name: ?WILLIAM MADRID Pat. No: ?[id number] Study Date: ?? 10/12/2022 ??1:02pm , Age: ? 2000, 22 Pregnancies: ?? 2, Para 1 Height: ? 66 in Weight: ? 261 lb LMP: ?03/02/2022 GA by LMP: ?32w0d GA by Base: ?? 31w1d ?? OVIDIO: 12/13/2022 GA by US: ? 30w3d ?? OVIDIO: 12/18/2022 GA Selected: ??31w1d (From [facility]) OVIDIO: ?12/13/2022 Referring MD: Yesy Nichole MD Chief Vendor Quality: ??Raisa Tello RDMS CPT4: ? 04901 BMI: ?42.12 Hist/Ind: ? Approximate LMP, irregular menses ?Class III obesity ?Prior ?LR cfDNA, M ?Completed anatomy survey MEASUREMENTS & AGE ? GROWTH EVALUATION Measurement ??GA ? Range ? Srce %for GA Ratios ----- ---- ------- BPD ??7.7 cm 30w6d (30g0f-78g0n) Hadl BPD 28% FL/BPD 0.75 (0.71 - 0.87) HC ??28.5 cm 31w2d (53g4l-90j3i) Hadl HC ??17% FL/AC ??0.21 (0.20 - 0.24) AC ??27.7 cm 31w6d (25w1f-03h9i) Hadl AC ??65% HC/AC ??1.03 (0.96 - 1.15) FL ?? 5.8 cm 30w1d (14h2b-94m4m) Hadl FL ??13% CI ? 0.77 (0.70 - 0.86) HL ?? 5.4 cm 31w1d (24i2f-28z1g) Loco HL ??50% GA for sonogram 30w3d (24l7u-86p0c) ?? Weight Estimate: based on (BPD,HC,AC,FL) Hadlock ?Weight: 1711 gm (1461-1960gm) Had ? : 3lbs, 12oz ? Normal: 1780 gm (1335- 2225gm) Had ? Wt% ? 38% for 31w1d Heart Rate: 152 bpm Amniotic Fluid Index: 16.2cm (08.8-23.9) Q1: 3.7cm ??Q2: 5.6cm ??Q3: 3.0cm ??Q4: 4.0cm ?? EVAL, PLACENTA Presentation: cephalic Placenta: anterior Heart Rate: 152 bpm Amniotic Fluid Volume: normal CLINICAL SUMMARY A single fetus is seen in cephalic presentation. ??The measurements today are consistent with appropriate interval growth. ??The OVIDIO selected is based on a prior ultrasound. ??The amniotic fluid volume is normal. ?? IMPRESSION: Single, live, intrauterine at 31w1d ?? Amniotic fluid volume: within normal limits ?? size is within normal limits RECOMMEND: Ultrasound in 5 weeks for growth assessment and to begin weekly 8-point BPP's Thank you for allowing us the opportunity to care for your patient. ?? Paramjit Harrell MD <Electronic Signature> ??10/12/2022 01:45pm Paramjit Harrell MD [facility] ORDERABLES documented in this encounter Visit Diagnoses Diagnosis BMI 40.0-44.9, adult (HCC)- Primary Body Mass Index 40.0-44.9, adult Encounter for ultrasound to assess growth (HCC) 31 weeks gestation of (HCC) state, incidental Ultrasound for screening for growth restriction (HCC) screening for growth retardation using ultrasonics Ultrasound for screening for growth restriction (HCC)- Primary screening for growth retardation using ultrasonics H/O: Other postprocedural status Class 3 obesity Encounter for ultrasound to assess growth (HCC) BMI 40.0-44.9, adult (HCC) Body Mass Index 40.0-44.9, adult documented in this encounter Care Teams Complaint Coordinator Relationship Specialty Start Date End Date Donna Kovacs MD [address] [place] [address] PCP - General Pediatrics 05/04/16 documented as of this encounter
--- OUTSIDE RECORDS SUMMARY | 2024-05-07 11:12 | XMS_ITS | Encounter Summary ---
Author Organization [facility] Address [address] [address] Care Team Providers Care Drying Machine Operator Name Role Phone Donna Kovacs MD Primary Care Provider Reason for Visit * Reason Comments Ultrasound Encounter Details Date Type Department Care Team (Latest Contact Info) Description 11/04/2020 1:26 PM CDT - 11/04/2020 11:59 PM CDT Hospital Encounter [facility] [address] [place], [place] [id number] Paramjit Harrell MD Discharge Disposition: Home or [...] Associated Diagnosis Comments SONOGRAM - COMPLETE Routine 11/04/2020 1 :30 PM CDT Ultrasound for screening for growth restriction (HCC) documented in this encounter Results * SONOGRAM - COMPLETE (11/04/2020 1:30 PM CDT) Anatomical Region Laterality Modality Other 11/04/2020 1:30 PM CDT Narrative 11/04/2020 3:29 PM CDT ? [facility] ? M[facility] & Care Center ?PHONE: ??FAX: Pat. Name: ?WILLIAM MADRID Pat. No: ?[id number] Study Date: ?? 11/04/2020 ??1:30pm , Age: ? 2000, 20 Pregnancies: ?? 1 Height: ? 66 in Weight: ? 237 lb LMP: ?Unknown GA by Base: ?? 37w5d ?? OVIDIO: 11/20/2020 GA by US: ? 35w2d ?? OVIDIO: 12/07/2020 GA Selected: ??37w5d (From [facility]) OVIDIO: ?11/20/2020 Referring MD: Julius Nam MD Bioengineer: ??Ivonne Bates RDMS CPT4: ? 68978 BMI: ?38.25 Hist/Ind: ? 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 GROWTH EVALUATION Measurement ??GA ? Range ? Srce %for GA Ratios ----- ---- ------- BPD ??8.9 cm 35w6d (00d6u-65n9o) Hadl BPD 20% FL/BPD 0.77 (0.71 - 0.87) HC ??31.8 cm 35w5d (00c8q-29x7i) Hadl HC ??2% FL/AC ??0.21 (0.20 - 0.24) AC ??33.0 cm 36w6d (72e9j-55f2d) Hadl AC ??42% HC/AC ??0.96 (0.91 - 1.10) FL ?? 6.8 cm 35w0d (03n8i-30m2s) Hadl FL ??3% CI ? 0.80 (0.70 - 0.86) HL ?? 5.8 cm 33w4d (73x2v-17m0a) Loco HL ??<05 GA for sonogram 35w2d (38g7k-10c6n) ?? Weight Estimate: based on (BPD,HC,AC,FL) Hadlock ?Weight: 2867 gm (2448-3286gm) Had ? : 6lbs, 5oz ? Normal: 3177 gm (2382- 3971gm) Had ? Wt% ? 23% for 37w5d Heart Rate: 153 bpm Amniotic Fluid Index: 16.2cm (07.4-24.0) Q1: 2.1cm ??Q2: 5.0cm ??Q3: 4.6cm ??Q4: 4.6cm ?? EVAL, PLACENTA Presentation: cephalic Placenta: anterior Heart Rate: 153 bpm Amniotic Fluid Volume: normal CLINICAL SUMMARY Study Number: 2 ??A single fetus is seen in cephalic presentation. ?? The measurements today are consistent with appropriate interval growth. ??The OVIDIO is based on a prior ultrasound. ??The amniotic fluid volume is within normal limits. ?? anatomy was limited by gestational age. ??No major malformations were seen within the limitations of ultrasound. ?? IMPRESSION: Single, live, intrauterine at 37w5d size is within normal limits ?? Amniotic fluid volume: within normal limits ?? RECOMMEND: Ultrasound follow up as clinically indicated Thank you for allowing us the opportunity to care for your patient Paramjit Harrell MD <Electronic Signature> ??11/04/2020 03:29pm Julius Nam MD [facility] ORDERABLES documented in this encounter Visit Diagnoses Diagnosis Ultrasound for screening for growth restriction (HCC) screening for growth retardation using ultrasonics Encounter for ultrasound to check growth (HCC) 37 weeks gestation of (HCC) state, incidental documented in this encounter Care Teams Drying Machine Operator Relationship Specialty Start Date End Date Donna Kovacs MD [address] [place] [address] PCP - General Pediatrics 05/04/16 documented as of this encounter
--- OUTSIDE RECORDS SUMMARY | 2024-05-07 11:12 | XMS_ITS | Encounter Summary ---
Author Organization [facility] Address [address] [place] [address] Care Team Providers Care Dye House Hand Name Role Phone Donna Kovacs MD Primary Care Provider Reason for Visit * Reason Comments Sore Throat Encounter Details Date Type Department Care Team (Late st Contact Info) Description 07/15/2019 10:00 AM ICING MACHINE OPERATOR Office Visit [facility] [address] [place] [address] Provider, Bharath Exp Nameoki Tonsillitis with exudate (Primary Dx) Social History Tobacco Use Types Packs/Day Years Used Date Smoking Tobacco: Never Smokeless Tobacco: Never Sex and Gender Information Value Date Recorded Sex Assigned at Not on file Gender Identity Not on file Sexual Orientation Not on file documented as of this encounter Last Filed Vital Signs Vital Sign Reading Time Taken Comments Blood Pressure 120/80 07/15/2019 9:41 AM ICING MACHINE OPERATOR Pulse 84 07/15/2019 9:41 AM ICING MACHINE OPERATOR Temperature 37.1 ??C (98.7 ??F) 07/15/2019 9:41 AM CS T Respiratory Rate 15 07/15/2019 9:41 AM ICING MACHINE OPERATOR Oxygen Saturation - - Inhaled Oxygen Concentration - - Weight 108.9 kg (240 lb) 07/15/2019 9:41 AM ICING MACHINE OPERATOR Height 167.6 cm (5' 6 ) 07/15/2019 9:41 AM ICING MACHINE OPERATOR Body Mass Index 38.74 07/15/2019 9:41 AM ICING MACHINE OPERATOR documented in this encounter Patient Instructions * Patient Instructions* Ronna Starr APRN-CAREER CENTER DIRECTOR - 07/15/2019 9:55 AM ICING MACHINE OPERATOR Images from the original note were not included. Drink plenty of fluids and rest when able. May take Tylenol or Ibuprofen as directed per package instructions Warm salt water gargles Change toothbrush on day 3 of antibiotic SEEK EMERGENCY CARE IF SEVERE SYMPTOMS PERSIST, SUCH , BUT NOT LIMITED TO: HIGH FEVER, NECK PAIN,SWELLING OF THE NECK, NECK TENDERNESS, DEVELOPMENT OF RASH, DIFFICULTY SWALLOWING, MENTAL STATUS CHANGES, SEVERE HEADACHE, CHANGES IN THE COLOR OF YOUR URINE, DECREASED URINATION, OR INABILITY TO SWALLOW SALIVA (MAY MANIFEST DROOLING IN CHILDREN) Patient Education Tonsillitis LAND CLEARER: Tonsillitis is inflammation of your tonsils. Tonsils are the lumps of tissue on both sides of the back of your throat. Tonsils are part of your immune system. They help you fight infections. Tonsillitis is usually caused by bacteria or a virus. Recurrent tonsillitis is when you have tonsillitis many times in 1 year. Chronic tonsillitis is when you have a sore throat that lasts 3 months or longer. Common symptoms include the following: ?? Severe sore throat ?? Red, swollen tonsils ?? Painful swallowing ?? Fever and chills ?? Bad breath ?? White spots on the tonsils Call 911 for the following: ?? Trouble breathing because your tonsils are swollen Treatment for tonsillitis may include any of the following: ?? Acetaminophen decreases pain and fever. It is available without a doctor's order. Ask how much to take and how often to take it. Follow directions. Acetaminophen can cause liver [...] the medicine label and follow directions. ?? Antibiotics help treat a bacterial infection. ?? A tonsillectomy is surgery to remove your tonsils. You may need surgery if you have chronic or recurrent tonsillitis. Surgery is also done if antibiotics are not getting rid of your tonsillitis. Rest when you feel it is needed. Slowly start to do more each day. Return to your daily activities as directed. Drink liquids as directed: You may need to drink more liquid than usual to help prevent dehydration. Ask how much liquid to drink each day and which liquids are best for you. Gargle with warm salt water: This may help decrease throat pain. Mix 1 teaspoon of salt in 8 ouncesof warm water. Ask how often you should do this. Follow up with your healthcare provider as directed: Write down your questions so you remember to ask them during your visits. ?? Copyright [employer] 2018 Information is for End User's use only and may not be sold, redistributed or otherwise used for commercial purposes. All illustrations and images included in CareNotes?? are the copyrighted property of [employer]. or [employer] The above information is an educational resource coordinator only. It is not intended as medical advice for individual conditions or treatments. Talk to your doctor, nurse or pharmacist before following any medical regimen to see if it is safe and effective for you. G MACHINE OPERATOR documented in this encounter Progress Notes * Ronna Starr APRN-CNP - 07/15/2019 9:41 AM CST Images from the original note were not included. History Justine Savage is a 19 year old female who presents to the clinic with Chief Complaint Patient presents with ??? Sore Throat . Primary Care Physician is Donna Whiteside MD. She reports the following symptoms: sore throat, swollen glands, post nasal drip, myalgias, fever, pain while swallowing, white spots in throat and enlarged tonsils. Onset was 3 days ago. The Clinical course has been gradually worsening. Patient is drinking plenty of fluids..The throat pain is described as burning, and is 8/10 in intensity. OTC- none. Sick Contacts: No known sick contacts Past Medical History: Diagnosis Date ??? NEGATIVE PAST MEDICAL HISTORY - SEE PROBLEM LIST No family history on file. Current Outpatient Medications Medication Sig Dispense Refill ??? penicillin v potassium (VEETIDS) 500 MG tablet Take 1 tablet by mouth 2 times daily for 10 days20 tablet 0 No current facility-administered medications for this visit. No Known Allergies Social History Socioeconomic History ??? Marital status: Single Spouse name: Not on file ??? Number of children: Not on file ??? Years of education: Not on file ??? Highest education level: Not on file Occupational History ??? Not on file Social Needs ??? Financial resource strain: Not on file ??? Food insecurity Worry: Not on file Inability: Not on file ??? Transportation needs Medical: Not on file Non-medical: Not on file Tobacco Use ??? Smoking status: Never Smoker ??? Smokeless tobacco: Never Used Substance and Sexual Activity ??? Alcohol use: Not on file ??? Drug use: Not on file ??? Sexual activity: Not on file Lifestyle ??? Physical activity Days per week: Not on file Minutes per session: Not on file ??? Stress: Not on file Relationships ??? Social connections Talks on phone: Not on file Gets together: Not on file Attends mosque service: Not on file Active member of club or organization: Not on file Attends meetings of clubs or organizations: Not on file Relationship status: Not on file ??? Intimate partner violence Fear of current or ex partner: Not on file Emotionally abused: Not on file Physically abused: Not on file Forced sexual activity: Not on file Other Topics Concern ??? Not on file Social History Narrative ??? Not on file Review of Systems Constitutional: Positive for fatigue, fevers, chills, malaise, and GALLARDO Eyes: Negative Ears, nose, mouth, and throat: Positive for persistent sore throat, tonsillitis Respiratory: Negative for acute cough Cardiovascular: Negative Gastrointestinal: Negative for poor appetite, nausea, vomiting, diarrhea Hematologic/lymphatic: Positive for swollen nodes Objective: BP 120/80 Pulse 84 Temp 98.7 ??F (37.1 ??C) Resp 15 Ht 1.676 m (5' 6 ) Wt 108.9 kg (240 lb) BMI 38.74 kg/m2 General appearance: alert, cooperative, [...] exudates present Neck: supple Nodes: cervical adenopathy bilaterally Lungs: breath sounds normal and symmetric; no rales or wheezes Heart: regular rhythm, normal S1 and S2, without murmurs, gallops or rubs Assessment: Encounter Diagnosis Name Primary? Tonsillitis with exudate Yes Plan: Patient placed on antibiotics per Cent[facility] Criteria. Patient advised of the risk of peritonsillar abscess formation. Patient advised will be infectious for 24 hours after starting antibiotics. Educational materials given. Drink plenty of fluids May take Tylenol or Ibuprofen as directed per package instructions Warm salt water gargles Change toothbrush on day 3 of antibiotic Reviewed education materials and instructions with patient and answered all questions. Justine Svaage verbalized understanding and agrees with plan. Follow up with Donna Whiteside MD if symptoms worsen or do not completely resolve. SEEK EMERGENCY CARE IF SEVERE SYMPTOMS PERSIST, [...] - POINT OF CARE (AMB) STL ??? penicillin v potassium (VEETIDS) 500 MG tablet Sig: Take 1 tablet by mouth 2 times daily for 10 days Dispense: 20 tablet Refill: 0 Recent Results (from the past 24 hour(s)) STREP A SCREEN - POINT OF CARE (AMB) STL Collection Time: 07/15/19 12:00 AM Result Value Ref Range Strep A Rapid POCT Negative Negative Strep A Internal Control Present Lot # [id number] Expiration Date 01/17/2021 Ronna Starr DNP, DECK OFFICER-MARIANO 07/15/2019 10:11 AM G MACHINE OPERATOR documented in this encounter Plan of Treatment Not on file documented as of this encounter Procedures Procedure Name Priority Date/Time Associated Diagnosis Comments STREP A SCREEN - POINT OF CARE (AMB) STL Routine 07/15/2019 Tonsillitis with exudate documented in this encounter Results * STREP A SCREEN - POINT OF CARE (AMB) STL (07/15/2019) Strep A Rapid POCT Negative Negative Strep A Internal Control Present Lot # [id number] Expiration Date 01/17/2021 Throat ENTIRE THROAT (SURFACE REGION OF NECK) / Unknown 07/15/2019 Ronna Starr LAB INTERN-CAREER CENTER DIRECTOR LAB - POINT OF CARE ORDERABLES documented in this encounter Visit Diagnoses Diagnosis Tonsillitis with exudate- Primary Acute tonsillitis documented in this encounter Care Teams Dye House Hand Relationship Specialty Start Date End Date Donna Kovacs MD [address] [place] [address] PCP - General Pediatrics 05/04/16 documented as of this encounter
--- OUTSIDE RECORDS SUMMARY | 2024-05-07 11:12 | XMS_ITS | Encounter Summary ---
Author Organization [facility] Address [address] [place] [address] Care Team Providers Care Delicatessen Department Manager Name Role Phone Donna Kovacs MD Primary Care Provider Reason for Referral * (Routine) - Closed Specialty Diagnoses / Procedures Referred By Contac t Referred To Contact Diagnoses Encounter for anatomic survey (HCC) Class 3 obesity Procedures SONOGRAM - COMPLETE Divina Mcarthur MD [address] [employer] ARNOLDO [address] [place] [id number] Referral ID Status Reason Start Date Expiration Date Visits Re quested Visits Authorized [id number] Closed 08/13/2022 08/13/2023 1 1 * (Routine) - Closed Specialty Diagnoses / Procedures Referred By Contac t Referred To Contact Diagnoses Encounter for anatomic survey (HCC) Class 3 obesity Procedures SONOGRAM - COMPLETE Divina Mcarthur MD [address] [place] [address] Referral ID Status Reason Start Date Expiration Date Visits Re quested Visits Authorized [id number] Closed 08/13/2022 08/13/2023 1 1 Reason for Visit * Reason Comments Ultrasound Encounter Details Date Type Department Care Team (Latest Contact Info) Description 08/17/2022 12:32 PM CDT - 08/17/2022 11:59 PM CDT Hospital Encounter [facility] [address] [place] [address] Paramjit Harrell MD Maternal Medicine Discharge Disposition: Home or Self [...] Associated Diagnosis Comments SONOGRAM - COMPLETE Routine 08/17/2022 1 2:35 PM CDT Encounter for anatomic survey (HCC) Class 3 obesity (HCC) documented in this encounter Results * SONOGRAM - COMPLETE (08/17/2022 12:35 PM CDT) Anatomical Region Laterality Modality Other 08/17/2022 12:3 5 PM CDT Narrative 08/17/2022 5:37 PM CDT ? [facility] Maternal Medicine ? [facility] ?PHONE: ??FAX: Pat. Name: ?WILLIAM MADRID. No: ?[id number] Study Date: ?? 08/17/2022 ??12:35pm , Age: ? 2000, 22 Pregnancies: ?? 2, Para 1 Height: ? 66 in Weight: ? 261 lb LMP: ?03/02/2022 GA by LMP: ?24w0d GA by Base: ?? 23w1d ?? OVIDIO: 12/13/2022 GA by US: ? 22w1d ?? OVIDIO: 12/20/2022 GA Selected: ??23w1d (From [facility]) OVIDIO: ?12/13/2022 Referring MD: Yesy Nichole MD Campus Executive Director: ??Lena Rizvi, RDMS, RDCS CPT4: ? 38762 BMI: ?42.12 Hist/Ind: ? Incomplete anatomic survey ?Approximate LMP, irregular menses ?Class III obesity ?Prior ?LR cfDNA, M MEASUREMENTS & AGE ? GROWTH EVALUATION Measurement ??GA ? Range ? Srce %for GA Ratios ----- ---- ------- BPD ??5.3 cm 22w1d (50y0q-27c7l) Hadl BPD 12% FL/BPD 0.72 (0.71 - 0.87) HC ??20.2 cm 22w2d (65p2t-76f6m) Hadl HC ??9% FL/AC ??0.21 (0.20 - 0.24) AC ??18.5 cm 23w2d (86n2n-27u6f) Hadl AC ??45% HC/AC ??1.10 (1.03 - 1.22) FL ?? 3.8 cm 22w1d (22m6a-53h1r) Hadl FL ??12% CI ? 0.73 (0.70 - 0.86) HL ?? 3.8 cm 23w4d (93c5t-47v1p) Loco HL ??56% GA for sonogram 22w1d (95v9w-23c8a) ?? Weight Estimate: based on (BPD,HC,AC,FL) Hadlock ?Weight: 527 gm (450-603gm) Hadloc ? : 1lbs, 2oz ? Normal: 583 gm (437-728gm) Hadloc ? Wt% ? 23% for 23w1d Heart Rate: 151 bpm EVAL, PLACENTA Presentation: jarod breech Placenta: anterior Heart Rate: 151 bpm Amniotic [...] ?! ? x ?! Orbits ? ! ?? x ??! ?! ?! ?! Profile ?! ?? x ??! ?! ?! ?! Nasal Bone ?? ! ?? x ??! ?! ?! ?! Lip ?! ?? x ??! ?! ?! ?! Spine ?! ?! ?! ? x ?! ?! Lungs ?! ?? x ??! ?! ?! ?! 4 Chamber Hea! ?? x ??! ?! ?! ?! LVOT ? ! ?? x ??! ?! ?! ?! RVOT ? ! ?? x ??! ?! ?! ?! 3 Vessel View! ?! ?! ?! ? x ?! 3 Vessel Trac! ?? x ??! ?! ?! ?! Cross-over ?? ! ?? x ??! ?! ?! ?! Ductal Arch ??! ?? x ??! ?! ?! ?! Aortic Arch ??! ?? x ??! ?! ?! ?! Caval View ?? ! ?! [...] ?! ? x ?! 3 Vessel Cord! ?? x ??! ?! ?! ?! Cord In! ?! ?! ?! ? x ?! Upper Extremi! ?! ?! ?! ? x ?! Hands ?! ?? x ??! ?! ?! ?!unremarkable ?left, right ?previously seen Lower Extremi! ?! ?! ?! ? x ?! Feet ? ! ?! ?! ?! ? x ?! External Marilyn! ?! ?! ?! ? x ?! Placental Cor! ?! ?! ?! ? x ?! CLINICAL SUMMARY A single fetus is seen in jarod breech presentation. ??The measurements today are consistent with appropriate growth. ?? The OVIDIO is based on a prior ultrasound. ??The amniotic fluid volume is within normal limits. ?? IMPRESSION: Single, live, intrauterine at 23w1d ?? size is within normal limits ?? Amniotic fluid volume: within normal limits ?? No major malformations were seen within the limitations of ultrasound. ?? RECOMMEND: Ultrasound in 4 weeks for growth assessment and completion of anatomy survey Thank you for allowing us the opportunity to care for your patient. ?? Paramjit Harrell MD <Electronic Signature> ??08/17/2022 05:05pm Divina Mcarthur MD [facility] ORDERABLES documented in this encounter Visit Diagnoses Diagnosis Encounter for anatomic survey (HCC)- Primary Encounter for anatomic survey Class 3 obesity documented in this encounter Care Teams Delicatessen Department Manager Relationship Specialty Start Date End Date Donna Kovacs MD [address] [place] [id number] PCP - General Pediatrics 05/04/16 documented as of this encounter
--- OUTSIDE RECORDS SUMMARY | 2024-05-07 11:12 | XMS_ITS | Encounter Summary ---
Author Organization [facility] Address [address] [place] [address] Care Team Providers Care Insulation Professional Name Role Phone Donna Kovacs MD Primary Care Provider Reason for Visit * Reason Onset Date Comments Follow-up 08/12/2017 Encounter Details Date Type Department Care Team (Late st Contact Info) Description 08/12/2017 Telephone [facility] [place] [id number] [place] [address] Natalya Chaves Follow-up Social History [...] on filedocumented in this encounter Care Teams Insulation Professional Relationship Specialty Start Date End Date Donna Kovacs MD [address] [place] [address] [address] [place] [address] PCP - General Pediatrics 05/04/16 documented as of this encounter
--- OUTSIDE RECORDS SUMMARY | 2024-05-07 11:12 | XMS_ITS | Encounter Summary ---
Author Organization [facility] Address [address] [place] [address] Care Team Providers Care Acid Dipper Name Role Phone Donna Kovacs MD Primary Care Provider Reason for Visit * Reason Onset Date Comments Follow-up 10/27/2018 Encounter Details Date Type Department Care Team (Late st Contact Info) Description 10/27/2018 Telephone [facility] [address] [place] [phone] Ronna Starr APRN-CNP [address] [facility] [facility] [place] [address] Follow-up Social History Tobacco Use Types Packs/Day Years Used Date Smoking Tobacco: Never Smokeless Tobacco: Never Sex and Gender Information Value Date Recorded Sex Assigned at Not on file Gender Identity Not on file Sexual Orientation Not on file documented as of this encounter Miscellaneous Notes * Telephone Encounter - Ronna Starr APRN-CNP - 10/27/2018 10:07 AM CDT Courtesy follow-up phone call made to patient. Message left advising patient to [facility] [phone] if they have any questions or concerns. NANETTE Brunner 10/27/2018 10:07 AM documented in this encounter Plan of Treatment Not on file documented as of this encounter Visit Diagnoses Not on filedocumented in this encounter Care Teams Acid Dipper Relationship Specialty Start Date End Date Donna Kovacs MD [address] [place] [id number] PCP - General Pediatrics 05/04/16 documented as of this encounter
--- OUTSIDE RECORDS SUMMARY | 2024-05-07 11:12 | XMS_ITS | Referral Summary ---
Author Organization [facility] Address [address] [facility] [place] [address] Care Team Providers Care Diamond Grader Name Role Phone Donna Kovacs MD Primary Care Provider Source Comments [facility],non-owned Affiliates and Associated Physician Practices is amultiple site organization consisting of ambulatory clinics and hospital sitesin [place], [place], [place] and [place]. This disclosure is being madepursuant to the Care Everywhere program and may not contain all information available regarding this patient. Last updated 18.[facility] Allergies No known active allergies Medications Be [...] Comments Blood Pressure 120/80 07/15/2019 9:41 AM RADIOPHONE OPERATOR Pulse 84 07/15/2019 9:41 AM RADIOPHONE OPERATOR Temperature 37.1 ??C (98.7 ??F) 07/15/2019 9:41 AM CS T Respiratory Rate 15 07/15/2019 9:41 AM RADIOPHONE OPERATOR Oxygen Saturation 97% 10/25/2018 11:54 AM CDT Inhaled Oxygen Concentration - - Weight 108.9 kg (240 lb) 07/15/2019 9:41 AM RADIOPHONE OPERATOR Height 167.6 cm (5' 6 ) 07/15/2019 9:41 AM RADIOPHONE OPERATOR Body Mass Index 38.74 07/15/2019 9:41 AM RADIOPHONE OPERATOR Plan of Treatment Not on file Care Teams Diamond Grader Relationship Specialty Start Date End Date Donna Kovacs MD [address] [place] [id number] PCP - General Pediatrics 05/04/16
--- OUTSIDE RECORDS SUMMARY | 2024-05-07 11:13 | XMS_ITS | Encounter Summary ---
Author Organization [facility] Address [address] [place] [address] Care Team Providers Care Technical Manager Chemical Plant Name Role Phone Donna Kovacs MD Primary Care Provider Reason for Visit * Reason Comments Sore Throat Encounter Details Date Type Department Care Team (Late st Contact Info) Description 05/04/2016 4:00 PM LAMP TESTER AND INSPECTOR Office Visit [facility] [address] [address] Provider, Bharath Exp Nameoki Acute pharyngitis, unspecified etiology (Primary Dx) Social History Tobacco Use Types Packs/Day Years Used Date Smoking Tobacco: Never Assessed Sex and Gender Information Value Date Recorded Sex Assigned at Not on file Gender Identity Not on file Sexual Orientation Not on file documented as of this encounter Last Filed Vital Signs Vital Sign Reading Time Taken Comments Blood Pressure 110/70 05/04/2016 3:55 PM LAMP TESTER AND INSPECTOR Pulse 115 05/04/2016 3:55 PM LAMP TESTER AND INSPECTOR Temperature 37.4 ??C (99.3 ??F) 05/04/2016 3:55 PM CS T Respiratory Rate 18 05/04/2016 3:55 PM LAMP TESTER AND INSPECTOR Oxygen Saturation - - Inhaled Oxygen Concentration - - Weight 101.6 kg (224 lb) 05/04/2016 3:55 PM LAMP TESTER AND INSPECTOR Height - - Body Mass Index - - documented in this encounter Patient Instructions * Patient Instructions* Rosemary Segura APRN-MANAGER QUALITY SYSTEMS - 05/04/2016 4:05 PM LAMP TESTER AND INSPECTOR Declines throat culture Warm salt water gargles or gargle with chloraseptic spray Increase fluid intake Tylenol or Motrin as needed Can use Claritin or Zyrtec as needed for nasal drainage If no improvement in 48-72 hours follow up with PCP or return to clinic Pharyngitis in Children WHAT YOU NEED TO KNOW: Pharyngitis is swelling or infection of the tissues and structures in your child's pharynx (throat). It is also called sore throat. DISCHARGE INSTRUCTIONS: Seek care immediately if: ?? Your child suddenly has trouble breathing or turns blue. ?? Your child has swelling or pain in his jaw. ?? Your child has voice changes, or it is hard to understand his speech. ?? Your child has a stiff neck. ?? Your child is urinating less than usual or has fewer diapers than usual. ?? Your child has increased weakness or fatigue. ?? Your child has pain on one side of his throat that is much worse than the other side. Contact your child's healthcare provider if: ?? Your child has throat pain, trouble swallowing, fever, or other symptoms that are not getting better or are getting worse. ?? Your child has a rash on his body. He may also have reddish cheeks and a red, swollen tongue. ?? Your child has new ear pain, headaches, or pain around his eyes. ?? Your child pauses in his breathing when he sleeps. ?? You have questions or concerns about your child's condition or care. Follow up with your child's healthcare provider as directed: Write down your questions so you remember to ask them during your visits. Manage your child's pharyngitis: ?? Have your child rest as much as possible. ?? Give your child plenty of liquids so he does not get dehydrated. Give him liquids that are easy to swallow and will soothe his throat. ?? Soothe your child's throat. If your child can gargle, give him ?? of a teaspoon of salt mixed with 1 cup of warm water to gargle. If your child is 12 years or older, give him throat lozenges to help decrease his throat pain. ?? Use a cool mist humidifier to increase air moisture in your home. This may make it easier for your child to breathe and help decrease his cough. Help prevent the spread of pharyngitis: Wash your hands and your child's hands often. Keep your child away from other people while he is still contagious. Ask your child's healthcare provider how long your child is contagious. Do not let your child share food or drinks. Do not let your child share toys or pacifiers. Wash these items with soap and hot water. When to return to school or daycare: Your child may return to daycare or school when his symptoms go away. ?? 2016 [employer]. Information is for End User's use only and may not be sold, redistributed or otherwise used for commercial purposes. All illustrations and images included in CareNotes?? are the copyrighted property of [employer]. or [employer] ([employer]). The above information is an hearing aid assistant only. It is not intended as medical advice for individual conditions or treatments. Talk to your doctor, nurse or pharmacist before following any medical regimen to see if it is safe and effective for you. TESTER AND INSPECTOR documented in this encounter Progress Notes * Rosemary Segura APRN-CNP - 05/04/2016 3:55 PM CST [facility] Chief Complaint Patient presents with ??? Sore Throat SUBJECTIVE: General The history is provided by the patient. This is a new problem. The current episode started yesterday. The problem occurs constantly. The pain is at a severity of 8/10. The pain is moderate. Associated symptoms include headaches. The symptoms are aggravated by swallowing. The symptoms are relieved by NSAIDs. The treatment provided mild relief. Mom tested positive for strep yesterday No past medical history on file. No current outpatient prescriptions on file prior to visit. No current facility-administered medications on file prior to visit. No past surgical history on file. History Social History ??? Marital status: Single Spouse name: N/A ??? Number of children: N/A ??? Years of education: N/A Occupational History ??? Not on file. Social History Main Topics ??? Smoking status: Not on file ??? Smokeless tobacco: Not on file ??? Alcohol use: Not on file ??? Drug use: Not on file ??? Sexual activity: Not on file Other Topics Concern ??? Not on file Social History Narrative No family history on file. No current outpatient prescriptions on file. No current facility-administered medications for this visit. No Known Allergies REVIEW OF SYSTEMS: Review of Systems Constitutional: Positive for fever. 100.0 highest HENT: Positive for sore throat. Negative for ear discharge, ear pain and nosebleeds. Respiratory: Positive for cough. Negative for sputum production. Gastrointestinal: Negative for diarrhea, nausea and vomiting. Neurological: Positive for headaches. OBJECTIVE: General appearance: alert, well appearing, and in no distress. BP 110/70 Pulse 115 Temp 99.3 ??F (Oral) Resp 18 Wt 101.6 kg (224 lb) Physical Exam Constitutional: She is oriented to person, place, and time and well-developed, well-nourished, and in no distress. HENT: Head: Normocephalic and atraumatic. Mild erythema posterior pharynx, clear post nasal drainage Neck: Normal range of motion. Neck supple. Cardiovascular: Normal rate and regular rhythm. Pulmonary/Chest: Effort normal and breath sounds normal. Neurological: She is alert and oriented to person, place, and time. Vitals reviewed. ASSESSMENT: No results found for this visit on 05/04/16. No diagnosis found. PLAN: Declines throat Warm salt water gargles or gargle with chloraseptic spray Increase fluid intake Tylenol or Motrin as needed Can use Claritin or Zyrtec as needed for nasal drainage If no improvement in 48-72 hours follow up with PCP or return to clinic TESTER AND INSPECTOR documented in this encounter Plan of Treatment Not on file documented as of this encounter Procedures Procedure Name Priority Date/Time Associated Diagnosis Comments STREP A SCREEN - POINT OF CARE (AMB) STL Routine 05/04/2016 4:00 PM LAMP TESTER AND INSPECTOR Acute pharyngitis, unspecified etiology documented in this encounter Results * STREP A SCREEN (05/04/2016 4:00 PM LAMP TESTER AND INSPECTOR) Strep A Rapid POCT Negative Negative Strep A Internal Control Present Lot # [id number] Expiration Date Throat ENTIRE THROAT (SURFACE REGION OF NECK) / Unknown 05/04/2016 4:00 PM LAMP TESTER AND INSPECTOR Rosemary L Imelda MANGLE TENDER CLOTH-MANAGER [facility]AL[facility] SYSTEMS LAB - POINT O F CARE ORDERABLES documented in this encounter Visit Diagnoses Diagnosis Acute pharyngitis, unspecified etiology- Primary documented in this encounter Care Teams Technical Manager Chemical Plant Relationship Specialty Start Date End Date Donna Kovacs MD [address] [place] [id number] PCP - General Pediatrics 05/04/16 documented as of this encounter
--- OUTSIDE RECORDS SUMMARY | 2024-05-07 11:13 | XMS_ITS | Encounter Summary ---
Author Organization [facility] Address [address] [place] [address] Care Team Providers Care Box Storage Worker Name Role Phone Donna Kovacs MD Primary Care Provider Reason for Visit * Reason Onset Date Comments Results 05/10/2016 Encounter Details Date Type Department Care Team (Late st Contact Info) Description 05/10/2016 Telephone [facility] [address] [place] [address] Rosemary Segura, WINDOWS MOBILE DEVELOPER-MARINE EQUIPMENT TEST ENGINEER [address] [address] Results Social History Tobacco Use Types Packs/Day Years Used Date Smoking Tobacco: Never Assessed Sex and Gender Information Value Date Recorded Sex Assigned at Not on file Gender Identity Not on file Sexual Orientation Not on file documented as of this encounter Plan of Treatment Not on file documented as of this encounter Visit Diagnoses Not on filedocumented in this encounter Care Teams Box Storage Worker Relationship Specialty Start Date End Date Donna Kovacs MD [address] [place] [address] [address] [place] [address] PCP - General Pediatrics 05/04/16 documented as of this encounter
--- OUTSIDE RECORDS SUMMARY | 2024-05-07 11:13 | XMS_ITS | Encounter Summary ---
Author Organization [facility] Address [address] [place] [place] [address] Care Team Providers Care Supervisor Special Services Name Role Phone Donna Kovacs MD Primary Care Provider Reason for Visit * Reason Onset Date Comments Follow-up 05/08/2016 Encounter Details Date Type Department Care Team (Late st Contact Info) Description 05/08/2016 Telephone [facility] [place] [id number] [place] [address] Natalya Chaves Follow-up Social History [...] on filedocumented in this encounter Care Teams Supervisor Special Services Relationship Specialty Start Date End Date Donna Kovacs MD [address] [place] [id number] PCP - General Pediatrics 05/04/16 documented as of this encounter
--- OUTSIDE RECORDS SUMMARY | 2024-05-07 11:13 | XMS_ITS | Encounter Summary ---
Author Organization [facility] Address [address] [facility] [place] [address] Care Team Providers Care Lunchroom Food Service Supervisor Name Role Phone Donna Kovacs MD Primary Care Provider Reason for Visit * Reason Comments Sore Throat Encounter Details Date Type Department Care Team (Late st Contact Info) Description 05/06/2016 11:20 AM RESISTOR INSPECTOR Office Visit [facility] AT [address] [address] Provider, Bharath Exp Nameoki Acute [...] Reading Time Taken Comments Blood Pressure 120/80 05/06/2016 11:36 AM RESISTOR INSPECTOR Pulse 105 05/06/2016 11:36 AM RESISTOR INSPECTOR Temperature 36.9 ??C (98.5 ??F) 05/06/2016 11:[address] Respiratory Rate 16 05/06/2016 11:36 AM RESISTOR INSPECTOR Oxygen Saturation - - Inhaled Oxygen Concentration - - Weight 101.6 kg (224 lb) 05/06/2016 11:36 AM RESISTOR INSPECTOR Height - - Body Mass Index - - documented in this encounter Patient Instructions * Patient Instructions* Rosemary Bro APRN-BRANCH MANAGER - 05/06/2016 11:47 AM RESISTOR INSPECTOR Advised to use OTC recommendations as given Throat culture sent Warm salt water gargles or gargle with [...] when his symptoms go away. ?? 2016 [employer]. Information is for End User's use only and may not be sold, redistributed or otherwise used for commercial purposes. All illustrations and images included in CareNotes?? are the copyrighted property of [employer]. or [employer]. The above information is an therapy aide only. It is not intended as medical advice for individual conditions or treatments. Talk to your doctor, nurse or pharmacist before following any medical regimen to see if it is safe and effective for you. STOR INSPECTOR documented in this encounter Progress Notes * Rosemary Bro APRN-CNP - 05/06/2016 11:35 AM CST [facility] Chief Complaint Patient presents with ??? Sore Throat SUBJECTIVE: General The history is provided by the patient. This is a recurrent problem. The current episode started more than 2 days ago. The problem occurs constantly. The problem has been gradually worsening. The pain is at a severity of 9/10. Associated symptoms include headaches and shortness of breath. The symptoms are aggravated by swallowing. The symptoms are relieved by NSAIDs. The treatment provided mild relief. Patient returns to clinic today with complaints of worsening sore throat was seen on Saturday throat is worse than the other day and now I have pus pockets patient did not use OTC recommendations that were given at that time and mom had also declined throat culture to be sent at that time. No past medical history on file. No [...] Review of Systems Constitutional: Positive for fever. Low grade temp, aches HENT: Positive for congestion, ear pain and sore throat. Post nasal drainage Respiratory: Positive for cough and shortness of breath. Gastrointestinal: Negative for diarrhea and nausea. Neurological: Positive for headaches. Negative for dizziness. OBJECTIVE: General appearance: alert, well appearing, and in no distress. BP 120/80 Pulse 105 Temp 98.5 ??F (Oral) Resp 16 Physical Exam Constitutional: She is oriented to person, place, and time and well-developed, well-nourished, and in no distress. HENT: Head: Normocephalic and atraumatic. Erythema posterior pharynx with exudate, erythema turbinates with clear nasal drainage. Neck: Normal range of motion. Neck supple. Cardiovascular: Normal rate and regular rhythm. Pulmonary/Chest: Effort normal and breath sounds normal. Lymphadenopathy: She has cervical adenopathy. Neurological: She is alert and oriented to person, place, and time. Vitals reviewed. ASSESSMENT: No results found for this visit on 05/06/16. No diagnosis found. PLAN: Advised to use OTC recommendations as given Throat culture sent. Warm salt water gargles or gargle with chloraseptic spray Increase fluid intake Tylenol or Motrin as needed Can use Claritin or Zyrtec as needed for nasal drainage If no improvement in 48-72 hours follow up with PCP or return to clinic STOR INSPECTOR documented in this encounter Miscellaneous Notes * Addendum Note - Rosemary Bro APRN-CNP - 05/10/2016 9:39 AM CSTAddended by: ROSEMARY BRO on: 05/10/2016 09:39 AM Modules accepted: Orders STOR INSPECTOR documented in this encounter Plan of Treatment Not on file documented as of this encounter Procedures Procedure Name Priority Date/Time Associated Diagnosis Comments CULTURE RESPIRATORY UPPER Routine 05/06/2016 11:46 AM RESISTOR INSPECTOR Acute pharyngitis, unspecified etiology STREP A SCREEN - POINT OF CARE (AMB) STL Routine 05/06/2016 11:45 AM RESISTOR INSPECTOR Acute pharyngitis, unspecified etiology documented in this encounter Results * (ABNORMAL) [facility] Throat Culture (05/06/2016 11:46 AM RESISTOR INSPECTOR) Upper Respiratory Culture Final report(A) [facility] ACCOUNT [...] OF NECK) / Unknown 05/06/2016 11:46 AM RESISTOR INSPECTOR 05/07/2016 Narrative Resulting Agency Comment [facility] [address] [facility] ??[facility] [id number] Rosemary FITZPATRICK LAB - MICROBI OLOGY ORDERABLES [facility] ACCOUNT BILL [address] [place] [address] * STREP A SCREEN (05/06/2016 11:45 AM RESISTOR INSPECTOR) Strep A Rapid POCT Negative Negative Strep A Internal Control Present Lot # [id number] Expiration Date [id number] Throat ENTIRE THROAT (SURFACE REGION OF NECK) / Unknown 05/06/2016 11:45 AM RESISTOR INSPECTOR Rosemary L Bro CENTRIFUGAL EXTRACTOR OPERATOR-BRANCH MANAGER LAB - POINT O F CARE ORDERABLES documented in this encounter Visit Diagnoses Diagnosis Acute pharyngitis, unspecified etiology- Primary documented in this encounter Care Teams Lunchroom Food Service Supervisor Relationship Specialty Start Date End Date Donna Kovacs MD [address] [place] [address] PCP - General Pediatrics 05/04/16 documented as of this encounter
--- OUTSIDE RECORDS SUMMARY | 2024-05-07 11:13 | XMS_ITS | Encounter Summary ---
Author Organization [facility] Address [address] [place] [address] Care Team Providers Care Supervisor Inspecting Name Role Phone Donna Kovacs MD Primary Care Provider [phone] Reason for Visit * Reason Onset Date Comments Results 05/10/2016 mom notified of positive throat culture results rx sent out Encounter Details Date Type Department Care Team (Late st Contact Info) Description 05/10/2016 Telephone [facility] [address] [place] [address] Rosemary Segura, OUTPATIENT CODER-FERRY BOAT CAPTAIN [address] [address] Results (mom notified of positive throat culture results rx sent out) Social History Tobacco Use Types Packs/Day Years Used Date Smoking Tobacco: Never Assessed Sex and Gender Information Value Date Recorded Sex Assigned at Not on file Gender Identity Not on file Sexual Orientation Not on file documented as of this encounter Plan of Treatment Not on file documented as of this encounter Visit Diagnoses Not on filedocumented in this encounter Care Teams Supervisor Inspecting Relationship Specialty Start Date End Date Donna Kovacs MD [address] [place] [address] [address] [place] [address] PCP - General Pediatrics 05/04/16 documented as of this encounter
--- OUTSIDE RECORDS SUMMARY | 2024-05-07 11:13 | XMS_ITS | Encounter Summary ---
Author Organization [facility] Address [address] [place] [address] Care Team Providers Care It Audit Manager Name Role Phone Donna Kovacs MD Primary Care Provider Reason for Visit * Reason Comments Rash x 1 day Encounter Details Date Type Department Care Team (Late st Contact Info) Description 06/19/2016 5:00 PM INJECTION MOLD TECHNICIAN Office Visit [facility] [address] [place] [address] Provider, Bharath Exp [address] Insect bite, initial encounter (Primary Dx) Social History Tobacco Use Types Packs/Day Years Used Date Smoking Tobacco: Never Assessed Sex and Gender Information Value Date Recorded Sex Assigned at Not on file Gender Identity Not on file Sexual Orientation Not on file documented as of this encounter Last Filed Vital Signs Vital Sign Reading Time Taken Comments Blood Pressure 120/72 06/19/2016 5:05 PM INJECTION MOLD TECHNICIAN Pulse 112 06/19/2016 5:05 PM INJECTION MOLD TECHNICIAN Temperature 36.8 ??C (98.3 ??F) 06/19/2016 5:05 PM CS T Respiratory Rate 16 06/19/2016 5:05 PM INJECTION MOLD TECHNICIAN Oxygen Saturation - - Inhaled Oxygen Concentration - - Weight 98 kg (216 lb) 06/19/2016 5:05 PM INJECTION MOLD TECHNICIAN Height - - Body Mass Index - - documented in this encounter Patient Instructions * Patient Instructions* Rosemary Segura APRN-RAHUL - 06/19/2016 5:15 PM INJECTION MOLD TECHNICIAN Cool compress to area Tylenol as needed Claritin or Zyrtec daily May use Cortisone cream as needed If no improvement in 48-72 hours follow up with PCP or return to clinic Dermatitis WHAT YOU NEED TO KNOW: Dermatitis is skin inflammation. You may have an itchy rash, redness, or swelling. You may also have bumps or blisters that crust over or ooze clear fluid. Dermatitis can be caused by allergens such as dust mites, pet dander, pollen, and certain foods. It can also develop when something touches your skin and irritates it or causes an allergic reaction. Examples include soaps, chemicals, latex, and poison sergio. DISCHARGE INSTRUCTIONS: Call 911 if you have any of the following symptoms of anaphylaxis: ?? Sudden trouble breathing ?? Throat swelling and tightness ?? Dizziness, lightheadedness, fainting, or confusion Return to the emergency department if: ?? You develop a fever or have red streaks going up your arm or leg. ?? Your rash gets more swollen, red, or hot. Contact your healthcare provider if: ?? Your skin blisters, oozes white or yellow pus, or has a foul-smelling discharge. ?? Your rash spreads or does not get better, even after treatment. ?? You have questions or concerns about your condition or care. Medicines: ?? Medicines help decrease itching and inflammation, or treat a bacterial infection. They may be given as a topical cream, shot, or a pill. ?? Take your medicine as directed. Contact your healthcare provider if you think your medicine is not helping or if you have side effects. Tell him of her if you are allergic to any medicine. Keep a list of the medicines, vitamins, and herbs you take. Include the amounts, and when and why you take them. Bring the list or the pill bottles to follow-up visits. Carry your medicine list with you in case of an emergency. Apply a cool compress to your rash: This will help soothe your skin. Keep your skin moist: Rub unscented cream or lotion on your skin to prevent dryness and itching. [place] right after a lukewarm bath or shower when your skin is still damp. Avoid skin irritants: Do not use skin irritants, such as makeup, hair products, soaps, and cleansers. Use products that do not contain fragrances or dye. Follow up with your healthcare provider as directed: Write down your questions so you remember to ask them during your visits. ?? 2016 [employer]. Information is for End User's use only and may not be sold, redistributed or otherwise used for commercial purposes. All illustrations and images included in CareNotes?? are the copyrighted property of [employer]. or [employer]. The above information is an physician's aide only. It is not intended as medical advice for individual conditions or treatments. Talk to your doctor, nurse or pharmacist before following any medical regimen to see if it is safe and effective for you. CTION MOLD TECHNICIAN documented in this encounter Progress Notes * Rosemary Segura APRN-CNP - 06/19/2016 5:05 PM CST [facility] Chief Complaint Patient presents with ??? Rash x 1 day SUBJECTIVE: General The history is provided by the patient and parent. This is a new problem. The current episode started yesterday. The problem occurs constantly. The problem has been gradually worsening. Associated symptoms include shortness of breath. Treatments tried: cortisone. woke up with some ? Insect bites on left upper leg 5 area and left wrist 1 area has tried cortisoneno help. Denies any contact with any new products. No past medical history on file. No [...] REVIEW OF SYSTEMS: Review of Systems Constitutional: Negative for chills and fever. Respiratory: Positive for shortness of breath. Negative for cough. Skin: Positive for itching and rash. OBJECTIVE: General appearance: alert, well appearing, and in no distress. BP 120/72 Pulse 112 Temp 98.3 ??F (Oral) Resp 16 Wt 98 kg (216 lb) Physical Exam Constitutional: She is oriented to person, place, and time and well-developed, well-nourished, and in no distress. HENT: Head: Normocephalic and atraumatic. Cardiovascular: Normal rate and regular rhythm. Pulmonary/Chest: Effort normal and breath sounds normal. Neurological: She is alert and oriented to person, place, and time. Skin: Rash noted. Left upper leg 5 erythema circular raised bumps Vitals reviewed. ASSESSMENT: No results found for this visit on 06/19/16. No diagnosis found. PLAN: Cool compress to area Tylenol as needed Claritin or Zyrtec daily May use Cortisone cream as needed If no improvement in 48-72 hours follow up with PCP or return to clinic CTION MOLD TECHNICIAN documented in this encounter Plan of Treatment Not on file documented as of this encounter Visit Diagnoses Diagnosis Insect bite, initial encounter- Primary documented in this encounter Care Teams It Audit Manager Relationship Specialty Start Date End Date Donna Kovacs MD [address] [place] [address] PCP - General Pediatrics 05/04/16 documented as of this encounter
--- OUTSIDE RECORDS SUMMARY | 2024-05-07 13:06 | XMS_ITS | Encounter Summary ---
Author Organization [facility] Address [address] [place] [address] Care Team Providers Care Shell Press Operator Name Role Phone Donna Kovacs MD Primary Care Provider Reason for Referral * (Routine) - Closed Specialty Diagnoses / Procedures Referred By Contac t Referred To Contact Diagnoses Encounter for ultrasound to assess growth (HCC) BMI 40.0-44.9, adult (HCC) Procedures SONOGRAM - COMPLETE Paramjit Harrell MD [address] [address] Referral ID Status Reason Start Date Expiration Date Visits Re quested Visits Authorized [id number] Closed 10/09/2022 10/09/2023 2 2 * (Routine) - Closed Specialty Diagnoses / Procedures Referred By Contac t Referred To Contact Diagnoses Encounter for ultrasound to assess growth (HCC) BMI 40.0-44.9, adult (HCC) Procedures SONOGRAM - COMPLETE Paramjit Harrell MD [address] [place] [address] [address] Referral ID Status Reason Start Date Expiration Date Visits Re quested Visits Authorized [id number] Closed 10/09/2022 10/09/2023 2 2 Encounter Details Date Type Department Care Team (Latest Contact Info) Description 10/12/2022 12:57 PM CDT - 10/12/2022 11:59 PM CDT Hospital Encounter [facility] [address] [place] [address] Paramjit Harrell MD Discharge Disposition: Home or [...] CDT Narrative 11/30/2022 2:47 PM CDT ? [facility] ?Maternal and Care Center ?PHONE: ??FAX: Pat. Name: ?WILLIAM MADRID. No: ?[id number] Study Date: ?? 11/30/2022 ??12:56pm , Age: ? 2000, 22 Pregnancies: ?? 2, Para 1 Height: ? 66 in Weight: ? 261 lb LMP: ?Unknown GA by Base: ?? 38w1d ?? OVIDIO: 12/13/2022 GA Selected: ??38w1d (From [facility]) OVIDIO: ?12/13/2022 Referring MD: Yesy Nichole MD Validation Leader: ??Lena Rizvi, RDMS, RDCS CPT4: ? 97772,29518 BMI: ?42.12 Hist/Ind: ? Class III obesity [...] <Electronic Signature> ??11/30/2022 02:46pm Paramjit Harrell MD [facility] ORDERABLES * SONOGRAM - COMPLETE (10/12/2022 1:02 PM CDT) Anatomical Region Laterality Modality Other 10/12/2022 1:02 PM CDT Narrative 10/12/2022 1:45 PM CDT ? [facility] Maternal Medicine ? Maternal & Care Center ?PHONE: ??FAX: Pat. Name: ?WILLIAM MADRID Pat. No: ?[id number] Study Date: ?? 10/12/2022 ??1:02pm , Age: ? 2000, 22 Pregnancies: ?? 2, Para 1 Height: ? 66 in Weight: ? 261 lb LMP: ?03/02/2022 GA by LMP: ?32w0d GA by Base: ?? 31w1d ?? OVIDIO: 12/13/2022 GA by US: ? 30w3d ?? OVIDIO: 12/18/2022 GA Selected: ??31w1d (From [facility]) OVIDIO: ?12/13/2022 Referring MD: Yesy Nichole MD Validation Leader: ??Raisa Tello RDMS CPT4: ? 44894 BMI: ?42.12 Hist/Ind: ? Approximate LMP, irregular menses ?Class III obesity ?Prior ?LR cfDNA, M ?Completed anatomy survey MEASUREMENTS & AGE ? GROWTH EVALUATION Measurement ??GA ? Range ? Srce %for GA Ratios ----- ---- ------- BPD ??7.7 cm 30w6d (77f0k-93w0e) Hadl BPD 28% FL/BPD 0.75 (0.71 - 0.87) HC ??28.5 cm 31w2d (98p9t-74l0w) Hadl HC ??17% FL/AC ??0.21 (0.20 - 0.24) AC ??27.7 cm 31w6d (98o7t-73s6r) Hadl AC ??65% HC/AC ??1.03 (0.96 - 1.15) FL ?? 5.8 cm 30w1d (07x1e-40u2n) Hadl FL ??13% CI ? 0.77 (0.70 - 0.86) HL ?? 5.4 cm 31w1d (61f6m-15x0j) Loco HL ??50% GA for sonogram 30w3d (90u5g-25y2p) ?? Weight Estimate: based on (BPD,HC,AC,FL) Hadlock [...] <Electronic Signature> ??10/12/2022 01:45pm Paramjit Harrell MD [facility] ORDERABLES documented in this encounter [...] adult documented in this encounter Care Teams Shell Press Operator Relationship Specialty Start Date End Date Donna Kovacs MD [address] [place] [address] PCP - General Pediatrics 05/04/16 documented as of this encounter
--- OUTSIDE RECORDS SUMMARY | 2024-05-07 13:06 | XMS_ITS | Clinical Summary ---
Author Organization [facility] Address [address] [place] [address] Care Team Providers Care Salesperson Automobiles Name Role Phone Donna Kovacs MD Primary Care Provider Source Comments [facility],non-owned Affiliates and Associated Physician Practices is amultiple site organization consisting of ambulatory clinics and hospital sitesin [place], [place], [place] and [place]. This disclosure is being madepursuant to the Care Everywhere program and may not contain all information available regarding this patient. Last updated 18.[facility] [employer] Allergies No known active allergies Medications Be [...] Comments Blood Pressure 120/80 07/15/2019 9:41 AM COMMERCIAL SALES SPECIALIST Pulse 84 07/15/2019 9:41 AM COMMERCIAL SALES SPECIALIST Temperature 37.1 ??C (98.7 ??F) 07/15/2019 9:41 AM CS T Respiratory Rate 15 07/15/2019 9:41 AM COMMERCIAL SALES SPECIALIST Oxygen Saturation 97% 10/25/2018 11:54 AM CDT Inhaled Oxygen Concentration - - Weight 108.9 kg (240 lb) 07/15/2019 9:41 AM COMMERCIAL SALES SPECIALIST Height 167.6 cm (5' 6 ) 07/15/2019 9:41 AM COMMERCIAL SALES SPECIALIST Body Mass Index 38.74 07/15/2019 9:41 AM COMMERCIAL SALES SPECIALIST Plan of Treatment Health Maintenance Due Date [...] age to complete this topic Care Teams Salesperson Automobiles Relationship Specialty Start Date End Date Donna Kovacs MD [address] [place] [address] PCP - General Pediatrics 05/04/16
--- OUTSIDE RECORDS SUMMARY | 2024-05-07 13:06 | XMS_ITS | Encounter Summary ---
Author Organization [facility] Address [address] [place] [address] Care Team Providers Care Insulation Inspector Name Role Phone Donna Kovacs MD Primary Care Provider Reason for Visit * Reason Comments Ultrasound Encounter Details Date Type Department Care Team (Latest Contact Info) Description 07/17/2022 7:20 AM COOK HOUSE LABORER - 07/17/2022 11:59 PM COOK HOUSE LABORER Hospital Encounter [facility] Maternal & Care [address] [place] [address] Divina Mcarthur MD [address] [id number] Discharge Disposition: Home or Self Care Social [...] - COMPLETE Routine 07/17/2022 7 :27 AM COOK HOUSE LABORER Encounter for anatomic survey (HCC) 19 weeks gestation of (HCC) documented in this encounter Results * SONOGRAM - COMPLETE (07/17/2022 7:27 AM COOK HOUSE LABORER) Anatomical Region Laterality Modality Other 07/17/2022 7:27 AM COOK HOUSE LABORER Narrative 07/17/2022 11:55 AM COOK HOUSE LABORER ? [facility] Maternal Medicine ? Maternal & Care Center ?PHONE: ??FAX: Pat. Name: ?WILLIAM MADRID Pat. No: ?[id number] Study Date: ?? 07/17/2022 ??7:27am , Age: ? 2000, 22 Pregnancies: ?? 2, Para 1 Height: ? 66 in Weight: ? 261 lb LMP: ?03/02/2022 GA by LMP: ?19w4d GA by US: ? 18w4d ?? OVIDIO: 12/14/2022 GA Selected: ??18w5d (From Known E) OVIDIO: ?12/13/2022 Referring MD: Yesy Nichole MD Biology Specimen Technician: ??Sheeba Orourke RDMS CPT4: ? 87985,89840 BMI: ?42.12 Hist/Ind: ? anatomic survey ?Approximate LMP, irregular menses ?Class III obesity ?Prior ?LR cfDNA, M MEASUREMENTS & AGE ? GROWTH EVALUATION Measurement ??GA ? Range ? Srce %for GA Ratios ----- ---- ------- BPD ??4.2 cm 18w5d (17r8i-28a4p) Hadl BPD 48% FL/BPD 0.68 HC ??15.9 cm 18w5d (73c0v-76r8x) Hadl HC ??46% FL/AC ??0.21 AC ??13.2 cm 18w5d (14f8d-71p7l) Hadl AC ??47% HC/AC ??1.20 (1.07 - 1.26) FL ?? 2.8 cm 18w5d (68y1a-50k7i) Hadl FL ??42% CI ? 0.72 (0.70 - 0.86) HL ?? 2.5 cm 17w6d (53y6m-34g7c) Loco HL ??37% Cere 1.9 cm 18w3d (46g5g-30x1j) Hill Cere41% GA for sonogram 18w4d (48k8z-73n4p) ?? Weight Estimate: based on (BPD,HC,AC,FL) Hadlock [...] <Electronic Signature> ??07/17/2022 11:55am Yesy Nichole MD [facility] ORDERABLES documented in this encounter Visit Diagnoses Diagnosis Encounter for anatomic survey (HCC)- Primary Encounter for anatomic survey 19 weeks gestation of (HCC) state, incidental Ultrasound for screening for growth restriction (HCC) screening for growth retardation using ultrasonics Obesity, Class III, BMI 40-49.9 (morbid obesity) (HCC) Morbid obesity H/O: Other postprocedural status documented in this encounter Care Teams Insulation Inspector Relationship Specialty Start Date End Date Donna Kovacs MD [address] [place] [address] PCP - General Pediatrics 05/04/16 documented as of this encounter
--- OUTSIDE RECORDS SUMMARY | 2024-05-07 13:06 | XMS_ITS | Patient Health Summary ---
Author Organization [facility] Address [address] [place] [address] Care Team Providers Care Hot Walker Name Role Phone Donna Kovacs MD Primary Care Provider [phone] Note from [facility],non-owned Affiliates and Associated Physician Practices is amultiple site organization consisting of ambulatory clinics and hospital sitesin [place], [place], [place] and [place]. This disclosure is being madepursuant to the Care Everywhere program and may not contain all information available regarding this patient. Last updated 18.[facility] Allergies No known active allergies Medications Be [...] Comments Blood Pressure 120/80 07/15/2019 9:41 AM LABEL FUSER TENDER Pulse 84 07/15/2019 9:41 AM LABEL FUSER TENDER Temperature 37.1 ??C (98.7 ??F) 07/15/2019 9:41 AM CS T Respiratory Rate 15 07/15/2019 9:41 AM LABEL FUSER TENDER Oxygen Saturation 97% 10/25/2018 11:54 AM CDT Inhaled Oxygen Concentration - - Weight 108.9 kg (240 lb) 07/15/2019 9:41 AM LABEL FUSER TENDER Height 167.6 cm (5' 6 ) 07/15/2019 9:41 AM LABEL FUSER TENDER Body Mass Index 38.74 07/15/2019 9:41 AM LABEL FUSER TENDER Procedures * SONOGRAM - COMPLETE(Performed 11/30/2022) Performed [...] CDT Narrative 11/30/2022 2:47 PM CDT ? [facility] ?Maternal and Care Center ?PHONE: ??FAX: Pat. Name: ?WILLIAM MADRID Pat. No: ?[id number] Study Date: ?? 11/30/2022 ??12:56pm , Age: ? 2000, 22 Pregnancies: ?? 2, Para 1 Height: ? 66 in Weight: ? 261 lb LMP: ?Unknown GA by Base: ?? 38w1d ?? OVIDIO: 12/13/2022 GA Selected: ??38w1d (From [facility]) OVIDIO: ?12/13/2022 Referring MD: Yesy Nichole MD Machine Inspector: ??Lena Rizvi, MINERVA, RDJERE CPT4: ? 75893,80727 BMI: ?42.12 Hist/Ind: ? Class III obesity [...] Strep A Internal Control Present Lot # [id number] Expiration Date 01/17/2021 Throat ENTIRE THROAT (SURFACE REGION OF NECK) / Unknown 07/15/2019 Ronna Starr APRN-PC TECH LAB - POINT OF CARE ORDERABLES * (ABNORMAL) [facility] Throat Culture (05/06/2016 11:46 AM LABEL FUSER TENDER) Upper Respiratory Culture Final report(A) [facility] ACCOUNT [...] OF NECK) / Unknown 05/06/2016 11:46 AM LABEL FUSER TENDER 05/07/2016 Narrative Resulting Agency Comment [facility] [place] [id number] [facility] ??[facility] [phone] Rosemary Segura APRN-PC TECH LAB - MICROBI OLOGY ORDERABLES [facility] ACCOUNT BILL [address] [place] [address] Care Teams Hot Walker Relationship Specialty Start Date End Date Donna Kovacs MD [address] [place] [address] PCP - General Pediatrics 05/04/16
--- OUTSIDE RECORDS SUMMARY | 2024-05-07 13:06 | XMS_ITS | Encounter Summary ---
Author Organization [facility] Address [address] [place] [address] Care Team Providers Care Mixer Machine Feeder Name Role Phone Donna Kovacs MD Primary Care Provider Reason for Referral * (Routine) - Closed Specialty Diagnoses / Procedures Referred By Contac t Referred To Contact Diagnoses Ultrasound for screening for growth restriction (HCC) BMI 40.0-44.9, adult (HCC) H/O: Class 3 obesity Procedures SONOGRAM - COMPLETE Juan David Edge MD [address] [address] Referral ID Status Reason Start Date Expiration Date Visits Re quested Visits Authorized [id number] Closed 11/15/2022 11/15/2023 1 1 * (Routine) - Closed Specialty Diagnoses / Procedures Referred By Contac t Referred To Contact Diagnoses Ultrasound for screening for growth restriction (HCC) BMI 40.0-44.9, adult (HCC) H/O: Class 3 obesity Procedures SONOGRAM - COMPLETE Juan David Edge MD [address] [address] Referral ID Status Reason Start Date Expiration Date Visits Re quested Visits Authorized [id number] Closed 11/15/2022 11/15/2023 1 1 Reason for Visit * Reason Comments Biophysical Profile Encounter Details Date Type Department Care Team (Latest Contact Info) Description 11/16/2022 12:41 PM CDT - 11/16/2022 11:59 PM CDT Hospital Encounter [facility] Maternal & Care [address] [place], [place] [id number] Paramjit Harrell MD Gross, Gilad A, MD [address] [place] [address] Divina Mcarthur MD [address] [place], [place] [id number] Maternal Medicine Discharge Disposition: Home or Self [...] CDT Narrative 11/16/2022 1:26 PM CDT ? [facility] ?Maternal and Care Center ?PHONE: ??FAX: Pat. Name: ?WILLIAM MADRID Skyler Pat. No: ?[id number] Study Date: ?? 11/16/2022 ??12:47pm , Age: ? 2000, 22 Pregnancies: ?? 2, Para 1 Height: ? 66 in Weight: ? 261 lb LMP: ?Unknown GA by Base: ?? 36w1d ?? OVIDIO: 12/13/2022 GA by US: ? 35w2d ?? OVIDIO: 12/19/2022 GA Selected: ??36w1d (From [facility]) OVIDIO: ?12/13/2022 Referring MD: Yesy Nichole MD Head Nurse: ??Sheeba Orourke RDMS CPT4: ? 49440,65934 BMI: ?42.12 Hist/Ind: ? Class III obesity ?Prior ?LR cfDNA (M), Completed anatomic survey ?Approximate LMP, irregular menses MEASUREMENTS & AGE ? GROWTH EVALUATION Measurement ??GA ? Range ? Srce %for GA Ratios ----- ---- ------- BPD ??8.5 cm 34w2d (86e9j-63z2z) Hadl BPD 12% FL/BPD 0.81 (0.71 - 0.87) HC ??32.1 cm 36w1d (01t4k-43d7c) Hadl HC ??20% FL/AC ??0.22 (0.20 - 0.24) AC ??32.0 cm 35w6d (96t8n-76j8f) Hadl AC ??52% HC/AC ??1.00 (0.92 - 1.11) FL ?? 6.9 cm 35w4d (32c9b-61l3t) Hadl FL ??29% CI ? 0.74 (0.70 - 0.86) HL ?? 5.9 cm 34w1d (68k8d-96h6g) Loco HL ??16% GA for sonogram 35w2d (83g1j-17t8h) ?? Weight Estimate: based on (BPD,HC,AC,FL) Hadlock [...] Signature> ??11/16/2022 01:26pm Juan David Edge MD [facility] ORDERABLES documented in this encounter Visit Diagnoses Diagnosis Ultrasound for screening for growth restriction (HCC)- Primary screening for growth retardation using ultrasonics BMI 40.0-44.9, adult (HCC) Body Mass Index 40.0-44.9, adult H/O: Other postprocedural status Class 3 obesity documented in this encounter Care Teams Mixer Machine Feeder Relationship Specialty Start Date End Date Donna Kovacs MD [address] [place] [address] PCP - General Pediatrics 05/04/16 documented as of this encounter
--- OUTSIDE RECORDS SUMMARY | 2024-05-07 13:06 | XMS_ITS | Referral Summary ---
Author Organization [facility] Address [address] [place] [address] Care Team Providers Care Seam Hammerer Name Role Phone Donna Kovacs MD Primary Care Provider [phone] Source Comments [facility],non-owned Affiliates and Associated Physician Practices is amultiple site organization consisting of ambulatory clinics and hospital sitesin [place], [place], [place] and [place]. This disclosure is being madepursuant to the Care Everywhere program and may not contain all information available regarding this patient. Last updated 18.[facility] Allergies No known active allergies Medications Be [...] Comments Blood Pressure 120/80 07/15/2019 9:41 AM PURCHASING CLERK Pulse 84 07/15/2019 9:41 AM PURCHASING CLERK Temperature 37.1 ??C (98.7 ??F) 07/15/2019 9:41 AM CS T Respiratory Rate 15 07/15/2019 9:41 AM PURCHASING CLERK Oxygen Saturation 97% 10/25/2018 11:54 AM CDT Inhaled Oxygen Concentration - - Weight 108.9 kg (240 lb) 07/15/2019 9:41 AM PURCHASING CLERK Height 167.6 cm (5' 6 ) 07/15/2019 9:41 AM PURCHASING CLERK Body Mass Index 38.74 07/15/2019 9:41 AM PURCHASING CLERK Plan of Treatment Not on file Care Teams Seam Hammerer Relationship Specialty Start Date End Date Donna Kovacs MD [address] [place] [address] PCP - General Pediatrics 05/04/16
--- OUTSIDE RECORDS SUMMARY | 2024-05-07 13:06 | XMS_ITS | Encounter Summary ---
Author Organization [facility] Address [address] [facility] [place] [address] Care Team Providers Care Fpga Engineer Name Role Phone Donna Kovacs MD Primary Care Provider Reason for Visit * Reason Comments Ultrasound Encounter Details Date Type Department Care Team (Latest Contact Info) Description 11/04/2020 1:26 PM CDT - 11/04/2020 11:59 PM CDT Hospital Encounter [facility] Maternal & Care [address] [place], [place] [phone] Paramjit Harrell MD Discharge Disposition: Home or [...] CDT Narrative 11/04/2020 3:29 PM CDT ? [facility] Maternal Medicine ? Maternal & Care Center ?PHONE: ??FAX: Pat. Name: ?WILLIAM MADRID Pat. No: ?[id number] Study Date: ?? 11/04/2020 ??1:30pm , Age: ? 2000, 20 Pregnancies: ?? 1 Height: ? 66 in Weight: ? 237 lb LMP: ?Unknown GA by Base: ?? 37w5d ?? OVIDIO: 11/20/2020 GA by US: ? 35w2d ?? OVIDIO: 12/07/2020 GA Selected: ??37w5d (From [facility]) OVIDIO: ?11/20/2020 Referring MD: Julius Nam MD Jet Man: ??Ivonne Bates RDMS CPT4: ? 10872 BMI: ?38.25 Hist/Ind: ? 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 GROWTH EVALUATION Measurement ??GA ? Range ? Srce %for GA Ratios ----- ---- ------- BPD ??8.9 cm 35w6d (84q6y-88r2u) Hadl BPD 20% FL/BPD 0.77 (0.71 - 0.87) HC ??31.8 cm 35w5d (41m7a-56i6i) Hadl HC ??2% FL/AC ??0.21 (0.20 - 0.24) AC ??33.0 cm 36w6d (95n1f-31g6m) Hadl AC ??42% HC/AC ??0.96 (0.91 - 1.10) FL ?? 6.8 cm 35w0d (91b6c-96d1h) Hadl FL ??3% CI ? 0.80 (0.70 - 0.86) HL ?? 5.8 cm 33w4d (29t4t-47p0o) Loco HL ??<05 GA for sonogram 35w2d (44m9f-34d4w) ?? Weight Estimate: based on (BPD,HC,AC,FL) Hadlock [...] <Electronic Signature> ??11/04/2020 03:29pm Julius Nam MD [facility] ORDERABLES documented in this encounter Visit Diagnoses Diagnosis Ultrasound for screening for growth restriction (HCC) screening for growth retardation using ultrasonics Encounter for ultrasound to check growth (HCC) 37 weeks gestation of (HCC) state, incidental documented in this encounter Care Teams Fpga Engineer Relationship Specialty Start Date End Date Donna Kovacs MD [address] [place] [address] PCP - General Pediatrics 05/04/16 documented as of this encounter
--- OUTSIDE RECORDS SUMMARY | 2024-05-07 13:06 | XMS_ITS | Encounter Summary ---
Author Organization [facility] Address [address] [facility] [place] [address] Care Team Providers Care Otorhinolaryngologist Name Role Phone Donna Kovacs MD Primary Care Provider Reason for Referral * (Routine) - Closed Specialty Diagnoses / Procedures Referred By Contac t Referred To Contact Diagnoses Encounter for follow-up ultrasound of anatomy (HCC) Obesity, Class III, BMI 40-49.9 (morbid obesity) (HCC) Procedures SONOGRAM - COMPLETE Yesy Nichole MD [address] [place] [address] Dr Dud[address] [place] [phone] Referral ID Status Reason Start Date Expiration Date Visits Re quested Visits Authorized [id number] Closed 09/11/2022 09/11/2023 1 1 * (Routine) - Closed Specialty Diagnoses / Procedures Referred By Contac t Referred To Contact Diagnoses Encounter for follow-up ultrasound of anatomy (HCC) Obesity, Class III, BMI 40-49.9 (morbid obesity) (HCC) Procedures SONOGRAM - COMPLETE Yesy Nichole MD [address] [place] [address] Dr Dudley [address] [place] [phone] Referral ID Status Reason Start Date Expiration Date Visits Re quested Visits Authorized [id number] Closed 09/11/2022 09/11/2023 1 1 Encounter Details Date Type Department Care Team (Latest Contact Info) Description 09/14/2022 1:24 PM CDT - 09/14/2022 11:59 PM CDT Hospital Encounter [facility] Maternal & Care [address] [place] [address] Juan David Edge MD [address] [place] [address] Discharge Disposition: Home or Self Care Social [...] CDT Narrative 09/14/2022 2:32 PM CDT ? [facility] Maternal Medicine ? Maternal & Care Center ?PHONE: ??FAX: Pat. Name: ?WILLIAM MADRID. No: ?[id number] Study Date: ?? 09/14/2022 ??1:50pm , Age: ? 2000, 22 Pregnancies: ?? 2, Para 1 Height: ? 66 in Weight: ? 261 lb LMP: ?03/02/2022 GA by LMP: ?28w0d GA by Base: ?? 27w1d ?? OVIDIO: 12/13/2022 GA by US: ? 26w6d ?? OVIDIO: 12/15/2022 GA Selected: ??27w1d (From [facility]) OVIDIO: ?12/13/2022 Referring MD: Yesy Nichole MD Openstack Cloud Consulting Architect: ??Raisa Tello RDMS CPT4: ? 32887 BMI: ?42.12 Hist/Ind: ? Incomplete anatomic survey ?Approximate LMP, irregular menses ?Class III obesity ?Prior ?LR cfDNA, M MEASUREMENTS & AGE ? GROWTH EVALUATION Measurement ??GA ? Range ? Srce %for GA Ratios ----- ---- ------- BPD ??6.8 cm 27w2d (74s4s-42j4l) Hadl BPD 43% FL/BPD 0.77 (0.71 - 0.87) HC ??24.5 cm 26w4d (12o6j-23j1x) Hadl HC ??9% FL/AC ??0.23 (0.20 - 0.24) AC ??23.1 cm 27w3d (03p9i-74p0u) Hadl AC ??51% HC/AC ??1.06 (1.00 - 1.18) FL ?? 5.2 cm 27w5d (44e7b-16v8p) Hadl FL ??52% CI ? 0.81 (0.70 - 0.86) GA for sonogram 26w6d (87q3e-35o5p) ?? Weight Estimate: based on (BPD,HC,AC,FL) Hadlock [...] Juan David Edge MD <Electronic Signature> ??[facility] Yes[facility] Nichole MD [facility] ORDERABLES documented in this encounter Visit Diagnoses Diagnosis Encounter for follow-up ultrasound of anatomy (HCC)- Primary Obesity, Class III, BMI 40-49.9 (morbid obesity) (HCC) Morbid obesity 26 weeks gestation of (HCC) state, incidental documented in this encounter Care Teams Otorhinolaryngologist Relationship Specialty Start Date End Date Donna Kovacs MD [address] [place] [address] PCP - General Pediatrics 05/04/16 documented as of this encounter
--- OUTSIDE RECORDS SUMMARY | 2024-05-07 13:06 | XMS_ITS | Encounter Summary ---
Author Organization [facility] Address [address] [place] [address] Care Team Providers Care Geometrician Name Role Phone Donna Kovacs MD Primary Care Provider Reason for Referral * (Routine) - Closed Specialty Diagnoses / Procedures Referred By Contac t Referred To Contact Diagnoses Encounter for ultrasound to assess growth (HCC) BMI 40.0-44.9, adult (HCC) Procedures SONOGRAM - COMPLETE Paramjit Harrell MD [address] [facility] [address] [place] [address] Referral ID Status Reason Start Date Expiration Date Visits Re quested Visits Authorized [id number] Closed 10/09/2022 10/09/2023 2 2 Reason for Visit * Reason Comments Ultrasound Encounter Details Date Type Department Care Team (Latest Contact Info) Description 11/30/2022 12:40 PM CDT - 11/30/2022 11:59 PM CDT Hospital Encounter [facility] Maternal & Care [address] [phone] Paramjit Harrell MD Gross, Gilad A, MD [address] [facility] [address] [place], [place] [phone] Divina Mcarthur MD [address] [facility] [address] [place], [place] [phone] Discharge Disposition: Home or Self Care Social [...] 11/30/2022 2:47 PM CDT ? [facility] ?Maternal and Care Center ?PHONE: ??FAX: Pat. Name: ?WILLIAM MADRID. No: ?[id number] Study Date: ?? 11/30/2022 ??12:56pm , Age: ? 2000, 22 Pregnancies: ?? 2, Para 1 Height: ? 66 in Weight: ? 261 lb LMP: ?Unknown GA by Base: ?? 38w1d ?? OVIDIO: 12/13/2022 GA Selected: ??38w1d (From [facility]) OVIDIO: ?12/13/2022 Referring MD: Yesy Nichole MD Seed Cleaner Operator: ??Lena Rizvi, ELIZMS, RDCS CPT4: ? 22461,70239 BMI: ?42.12 Hist/Ind: ? Class III obesity [...] <Electronic Signature> ??11/30/2022 02:46pm Paramjit Harrell MD [facility] ORDERABLES documented in this encounter Visit Diagnoses Diagnosis Ultrasound for screening for growth restriction (HCC)- Primary screening for growth retardation using ultrasonics H/O: Other postprocedural status Class 3 obesity Encounter for ultrasound to assess growth (HCC) BMI 40.0-44.9, adult (HCC) Body Mass Index 40.0-44.9, adult documented in this encounter Care Teams Geometrician Relationship Specialty Start Date End Date Donna Kovacs MD [address] [place] [address] PCP - General Pediatrics 05/04/16 documented as of this encounter
--- OUTSIDE RECORDS SUMMARY | 2024-05-07 13:06 | XMS_ITS | Encounter Summary ---
Author Organization [facility] Address [address] [facility] [place] [address] Care Team Providers Care Armature Inspector Name Role Phone Donna Kovacs MD Primary Care Provider [phone] Reason for Referral * (Routine) - Closed Specialty Diagnoses / Procedures Referred By Contac t Referred To Contact Diagnoses Encounter for anatomic survey (HCC) Class 3 obesity Procedures SONOGRAM - COMPLETE Divina Mcarthur MD [address] [employer] [place] [address] Referral ID Status Reason Start Date Expiration Date Visits Re quested Visits Authorized [id number] Closed 08/13/2022 08/13/2023 1 1 * (Routine) - Closed Specialty Diagnoses / Procedures Referred By Contac t Referred To Contact Diagnoses Encounter for anatomic survey (HCC) Class 3 obesity Procedures SONOGRAM - COMPLETE Divina Mcarthur MD [address] [facility] [address] [place] [address] Referral ID Status Reason Start Date Expiration Date Visits Re quested Visits Authorized [id number] Closed 08/13/2022 08/13/2023 1 1 Reason for Visit * Reason Comments Ultrasound Encounter Details Date Type Department Care Team (Latest Contact Info) Description 08/17/2022 12:32 PM CDT - 08/17/2022 11:59 PM CDT [facility] [address] [place] [address] Paramjit Harrell MD Maternal Medicine Discharge Disposition: [...] CDT Narrative 08/17/2022 5:37 PM CDT ? [facility] Maternal Medicine ? Maternal & Care Center ?PHONE: ??FAX: Pat. Name: ?WILLIAM MADRID. No: ?[id number] Study Date: ?? 08/17/2022 ??12:35pm , Age: ? 2000, 22 Pregnancies: ?? 2, Para 1 Height: ? 66 in Weight: ? 261 lb LMP: ?03/02/2022 GA by LMP: ?24w0d GA by Base: ?? 23w1d ?? OVIDIO: 12/13/2022 GA by US: ? 22w1d ?? OVIDIO: 12/20/2022 GA Selected: ??23w1d (From [facility]) OVIDIO: ?12/13/2022 Referring MD: Yesy Nichole MD Drug Room Operator: ??Lena Rizvi, RDMS, RDCS CPT4: ? 87485 BMI: ?42.12 Hist/Ind: ? Incomplete anatomic survey ?Approximate LMP, irregular menses ?Class III obesity ?Prior ?LR cfDNA, M MEASUREMENTS & AGE ? GROWTH EVALUATION Measurement ??GA ? Range ? Srce %for GA Ratios ----- ---- ------- BPD ??5.3 cm 22w1d (32h8a-83v4z) Hadl BPD 12% FL/BPD 0.72 (0.71 - 0.87) HC ??20.2 cm 22w2d (52s9k-32g0g) Hadl HC ??9% FL/AC ??0.21 (0.20 - 0.24) AC ??18.5 cm 23w2d (48a9o-81c2b) Hadl AC ??45% HC/AC ??1.10 (1.03 - 1.22) FL ?? 3.8 cm 22w1d (76a8n-27i5s) Hadl FL ??12% CI ? 0.73 (0.70 - 0.86) HL ?? 3.8 cm 23w4d (63z6c-92h5p) Loco HL ??56% GA for sonogram 22w1d (53p9g-95l7g) ?? Weight Estimate: based on (BPD,HC,AC,FL) Hadlock [...] <Electronic Signature> ??08/17/2022 05:05pm Divina Mcarthur MD [facility] ORDERABLES documented in this encounter Visit Diagnoses Diagnosis Encounter for anatomic survey (HCC)- Primary Encounter for anatomic survey Class 3 obesity documented in this encounter Care Teams Armature Inspector Relationship Specialty Start Date End Date Donna Kovacs MD [address] [place] [address] PCP - General Pediatrics 05/04/16 documented as of this encounter
--- OUTSIDE RECORDS SUMMARY | 2024-05-07 13:07 | XMS_ITS | Encounter Summary ---
Author Organization [facility] Address [address] [facility] [facility] [place] [address] Care Team Providers Care Staffing Recruiter Name Role Phone Donna Kovacs MD Primary Care Provider [phone] Reason for Visit * Reason Comments Sore Throat Encounter Details Date Type Department Care Team (Late st Contact Info) Description 07/15/2019 10:00 AM JACKER FEEDER Office Visit [facility] [address] [place] [address] Provider, Bharath Exp Nameoki Tonsillitis [...] Comments Blood Pressure 120/80 07/15/2019 9:41 AM JACKER FEEDER Pulse 84 07/15/2019 9:41 AM JACKER FEEDER Temperature 37.1 ??C (98.7 ??F) 07/15/2019 9:41 AM CS T Respiratory Rate 15 07/15/2019 9:41 AM JACKER FEEDER Oxygen Saturation - - Inhaled Oxygen Concentration - - Weight 108.9 kg (240 lb) 07/15/2019 9:41 AM JACKER FEEDER Height 167.6 cm (5' 6 ) 07/15/2019 9:41 AM JACKER FEEDER Body Mass Index 38.74 07/15/2019 9:41 AM JACKER FEEDER documented in this encounter Patient Instructions * Patient Instructions* Ronna Starr APRN-VEHICLE OPERATOR TECHNICIAN - 07/15/2019 9:55 AM JACKER FEEDER Images from the original note were not [...] MANIFEST DROOLING IN CHILDREN) Patient Education Tonsillitis MONUMENT SETTER: Tonsillitis is inflammation of your tonsils. Tonsils [...] ask them during your visits. ?? Copyright [employer] 2018 Information is for End User's use only and may not be sold, redistributed or otherwise used for commercial purposes. All illustrations and images included in CareNotes?? are the copyrighted property of [employer]. or [employer]ent[employer] The above information is an medicaid eligibility specialist only. It is not intended as medical advice for individual conditions or treatments. Talk to your doctor, nurse or pharmacist before following any medical regimen to see if it is safe and effective for you. ER FEEDER documented in this encounter Progress Notes * [...] file Gets together: Not on file Attends scientology service: Not on file Active member of [...] Strep A Internal Control Present Lot # [id number] Expiration Date 01/17/2021 Ronna Starr DNP, TODDLER NANNY-MARIANO 07/15/2019 10:11 AM ER FEEDER documented in this encounter Plan of Treatment [...] Strep A Internal Control Present Lot # [id number] Expiration Date 01/17/2021 Throat ENTIRE THROAT (SURFACE REGION OF NECK) / Unknown 07/15/2019 Ronna Starr WEB PRESS ROLL TENDER-VEHICLE OPERATOR TECHNICIAN LAB - POINT OF CARE ORDERABLES documented in this encounter Visit Diagnoses Diagnosis Tonsillitis with exudate- Primary Acute tonsillitis documented in this encounter Care Teams Staffing Recruiter Relationship Specialty Start Date End Date Donna Kovacs MD [address] [place] [address] PCP - General Pediatrics 05/04/16 documented as of this encounter
--- OUTSIDE RECORDS SUMMARY | 2024-05-07 13:07 | XMS_ITS | Encounter Summary ---
Author Organization [facility] Address [address] [facility] [place] [address] Care Team Providers Care Supervisor Drawing Name Role Phone Donna Kovacs MD Primary Care Provider [phone] Reason for Visit * Reason Onset Date Comments Follow-up 08/14/2016 Encounter Details Date Type Department Care Team (Late st Contact Info) Description 08/14/2016 Telephone [facility] [address] [place] [address] Natalya Chaves Follow-up Social History [...] filedocumented in this encounter Care Teams Supervisor Drawing Relationship Specialty Start Date End Date Donna Kovacs MD [address] [place] [address] PCP - General Pediatrics 05/04/16 documented as of this encounter
--- OUTSIDE RECORDS SUMMARY | 2024-05-07 13:07 | XMS_ITS | Encounter Summary ---
Author Organization [facility] Address [address] [facility] [place] [address] Care Team Providers Care Paste Up Worker Name Role Phone Donna Kovacs MD Primary Care Provider Reason for Visit * Reason Onset Date Comments Follow-up 10/27/2018 Encounter Details Date Type Department Care Team (Late st Contact Info) Description 10/27/2018 Telephone [facility] [address] [facility] [place] [phone] Ronna Starr APRN-CNP [address] [place] [address] Follow-up Social History Tobacco Use [...] Message left advising patient to call service [facility] [phone] if they have any questions or concerns. NANTETE Brunner 10/27/2018 10:07 AM documented in this encounter Plan of Treatment Not on file documented as of this encounter Visit Diagnoses Not on filedocumented in this encounter Care Teams Paste Up Worker Relationship Specialty Start Date End Date Donna Kovacs MD [address] [place] [address] PCP - General Pediatrics 05/04/16 documented as of this encounter
--- OUTSIDE RECORDS SUMMARY | 2024-05-07 13:07 | XMS_ITS | Encounter Summary ---
Author Organization [facility] Address [address] [facility] [place] [place] [address] Care Team Providers Care Assorter Laundry Name Role Phone Donna Kovacs MD Primary Care Provider Encounter Details Date Type Department Care Team (Latest Contact Info) Description 10/07/2020 12:54 PM CDT - 10/07/2020 11:59 PM CDT Hospital Encounter [facility] Maternal & Care [address] [place], [place] [phone] Paramjit Harrell MD Fisher, Allan J, MD [address] [place] [address] Discharge Disposition: Home or Self Care Social [...] CDT Narrative 10/07/2020 2:43 PM CDT ? [facility] Maternal Medicine ? Maternal & Care Center ?PHONE: ??FAX: Pat. Name: ?WILLIAM MADRID Pat. No: ?[id number] Study Date: ?? 10/07/2020 ??1:02pm , Age: ? 2000, 20 Pregnancies: ?? 1 Height: ? 66 in Weight: ? 237 lb LMP: ?Unknown GA by US: ? 32w6d ?? OVIDIO: 11/26/2020 GA Selected: ??33w5d (From Known E) OVIDIO: ?11/20/2020 Referring MD: Julius Nam MD Music Store Manager: ??Ivonne Bates RDMS CPT4: ? 34589 BMI: ?38.25 Hist/Ind: ? 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 GROWTH EVALUATION Measurement ??GA ? Range ? Srce %for GA Ratios ----- ---- ------- BPD ??8.1 cm 32w3d (11h4s-44m7x) Hadl BPD 14% FL/BPD 0.79 (0.71 - 0.87) HC ??30.0 cm 33w2d (34x0r-19e0w) Hadl HC ??9% FL/AC ??0.21 (0.20 - 0.24) AC ??30.2 cm 34w1d (80k3y-97e6y) Hadl AC ??68% HC/AC ??0.99 (0.95 - 1.13) FL ?? 6.4 cm 33w0d (83d3y-45s9s) Hadl FL ??23% CI ? 0.75 (0.70 - 0.86) HL ?? 5.5 cm 31w6d (08f7e-20k4j) Loco HL ??20% Cere 3.9 cm 31w4d (53n5n-35i6c) Hill Cere11% GA for sonogram 32w6d (20h4d-82q4k) ?? Weight Estimate: based on (BPD,HC,AC,FL) Hadlock [...] <Electronic Signature> ??10/07/2020 02:43pm Julius Nam MD [facility] ORDERABLES documented in this encounter Visit Diagnoses Diagnosis Ultrasound for screening for growth restriction (HCC)- Primary screening for growth retardation using ultrasonics Obesity complicating , third trimester (HCC) Obesity, unspecified classification, unspecified obesity type, unspecified whether serious comorbidity present 33 weeks gestation of (HCC) state, incidental documented in this encounter Care Teams Assorter Laundry Relationship Specialty Start Date End Date Donna Kovacs MD [address] [place] [address] PCP - General Pediatrics 05/04/16 documented as of this encounter
--- OUTSIDE RECORDS SUMMARY | 2024-05-07 13:07 | XMS_ITS | Encounter Summary ---
Author Organization [facility] Address [address] [place] [place] [address] Care Team Providers Care Mds Manager Name Role Phone Donna Kovacs MD Primary Care Provider [phone] Reason for Visit * Reason Comments Sore Throat Encounter Details Date Type Department Care Team (Latest Contact Info) Description 08/10/2017 12:00 PM CDT Office Visit [facility] AT [address] [phone] Provider, Bharath Exp Nametni Acute streptococcal pharyngitis (Primary Dx) Social History [...] 08/10/2017 12: 18 PM CDT Growth Chart: [facility] (Girls, 2- 20 Years) documented in this encounter Patient Instructions * Patient Instructions* Ronna Starr APRN-PAST DUE ACCOUNTS CLERK - 08/10/2017 12:30 PM CDT Images from [...] (MAY MANIFEST DROOLING IN CHILDREN) Strep Throat CASH APPLICATION REPRESENTATIVE: Strep throat is a throat infection caused [...] them during your child's visits. ?? 2017 SoundOut Information is for End User's use only and may not be sold, redistributed or otherwise used for commercial purposes. All illustrations and images included in CareNotes?? are the copyrighted property of [employer]ff[employer] Inc. or ContentWatch. The above information is an director educational radio only. It is not intended as medical [...] Strep A INTERNAL CONTROL Present Lot Number [id number] Expiration Date 02/07/2019 Ronna Starr APRN, BOILERS INSPECTOR- 08/10/2017 12:32 PM documented in this encounter [...] Strep A Internal Control Present Lot # [id number] Expiration Date 02/07/2019 Throat ENTIRE THROAT (SURFACE REGION OF NECK) / Unknown 08/10/2017 Ronna Starr APRN-[facility] LAB - POINT OF CARE ORDERABLES documented in this encounter Visit Diagnoses Diagnosis Acute streptococcal pharyngitis- Primary Streptococcal sore throat documented in this encounter Care Teams Mds Manager Relationship Specialty Start Date End Date Donna Kovacs MD [address] [place] [address] PCP - General Pediatrics 05/04/16 documented as of this encounter
--- OUTSIDE RECORDS SUMMARY | 2024-05-07 13:07 | XMS_ITS | Encounter Summary ---
Author Organization [facility] Address [address] [place] [address] Care Team Providers Care Advertising Analyst Name Role Phone Donna Kovacs MD Primary Care Provider Reason for Visit * Reason Comments Sore Throat Encounter Details Date Type Department Care Team (Late st Contact Info) Description 05/04/2016 4:00 PM LODGING FACILITIES MANAGER Office Visit [facility] AT [address] [address] Provider, Bharath Exp Nameoki Acute [...] Comments Blood Pressure 110/70 05/04/2016 3:55 PM LODGING FACILITIES MANAGER Pulse 115 05/04/2016 3:55 PM LODGING FACILITIES MANAGER Temperature 37.4 ??C (99.3 ??F) 05/04/2016 3:55 PM CS T Respiratory Rate 18 05/04/2016 3:55 PM LODGING FACILITIES MANAGER Oxygen Saturation - - Inhaled Oxygen Concentration - - Weight 101.6 kg (224 lb) 05/04/2016 3:55 PM LODGING FACILITIES MANAGER Height - - Body Mass Index - - documented in this encounter Patient Instructions * Patient Instructions* Rosemary Segura APRN-GYM SUPERVISOR - 05/04/2016 4:05 PM LODGING FACILITIES MANAGER Declines throat culture Warm salt water gargles [...] when his symptoms go away. ?? 2016 GLSS. Information is for End User's use only and may not be sold, redistributed or otherwise used for commercial purposes. All illustrations and images included in CareNotes?? are the copyrighted property of [employer]. or [employer]. The above information is an planning aide only. It is not intended as medical advice for individual conditions or treatments. Talk to your doctor, nurse or pharmacist before following any medical regimen to see if it is safe and effective for you. ING FACILITIES MANAGER documented in this encounter Progress Notes * [...] up with PCP or return to clinic ING FACILITIES MANAGER documented in this encounter Plan of Treatment Not on file documented as of this encounter Procedures Procedure Name Priority Date/Time Associated Diagnosis Comments STREP A SCREEN - POINT OF CARE (AMB) STL Routine 05/04/2016 4:00 PM LODGING FACILITIES MANAGER Acute pharyngitis, unspecified etiology documented in this encounter Results * STREP A SCREEN (05/04/2016 4:00 PM LODGING FACILITIES MANAGER) Strep A Rapid POCT Negative Negative Strep A Internal Control Present Lot # [id number] Expiration Date Throat ENTIRE THROAT (SURFACE REGION OF NECK) / Unknown 05/04/2016 4:00 PM LODGING FACILITIES MANAGER Rosemary L Imelda TRANSPORTATION SOLUTIONS MANAGER-GYM SUPERVISOR LAB - POINT O F CARE ORDERABLES documented in this encounter Visit Diagnoses Diagnosis Acute pharyngitis, unspecified etiology- Primary documented in this encounter Care Teams Advertising Analyst Relationship Specialty Start Date End Date Donna Kovacs MD [address] [place] [address] PCP - General Pediatrics 05/04/16 documented as of this encounter
--- OUTSIDE RECORDS SUMMARY | 2024-05-07 13:07 | XMS_ITS | Encounter Summary ---
Author Organization [facility] Address [address] [place] [address] Care Team Providers Care Administrative Sales Assistant Name Role Phone Donna Kovacs MD Primary Care Provider Reason for Visit * Reason Onset Date Comments Results 05/10/2016 mom notified of positive throat culture results rx sent out Encounter Details Date Type Department Care Team (Late st Contact Info) Description 05/10/2016 Telephone [facility] [address] [facility] [place] [address] Rosemary Segura, CARBONATING STONE CLEANER-ELDER COUNSELOR [address] [address] Results (mom notified of positive [...] on filedocumented in this encounter Care Teams Administrative Sales Assistant Relationship Specialty Start Date End Date Donna Kovacs MD [address] [place] [address] [address] [place] [address] PCP - General Pediatrics 05/04/16 documented as of this encounter
--- OUTSIDE RECORDS SUMMARY | 2024-05-07 13:07 | XMS_ITS | Encounter Summary ---
Author Organization [facility] Address [address] [facility] [place] [address] Care Team Providers Care Manager Call Center Name Role Phone Donna Kovacs MD Primary Care Provider Reason for Visit * Reason Onset Date Comments Follow-up 05/08/2016 Encounter Details Date Type Department Care Team (Late st Contact Info) Description 05/08/2016 Telephone [facility] [employer] [facility] [place] [id number] [place] [address] Natalya Chaves Follow-up Social History [...] on filedocumented in this encounter Care Teams Manager Call Center Relationship Specialty Start Date End Date Donna Kovacs MD [address] [place] [address] PCP - General Pediatrics 05/04/16 documented as of this encounter
--- OUTSIDE RECORDS SUMMARY | 2024-05-07 13:07 | XMS_ITS | Encounter Summary ---
Author Organization [facility] Address [address] [place] [address] Care Team Providers Care Preschool Disability Teacher Name Role Phone Donna Kovacs MD Primary Care Provider Reason for Visit * Reason Onset Date Comments Follow-up 08/12/2017 Encounter Details Date Type Department Care Team (Late st Contact Info) Description 08/12/[address] [facility] [employer] [facility] [place] [id number] [place] [address] Natalya Chaves Follow-up Social History [...] on filedocumented in this encounter Care Teams Preschool Disability Teacher Relationship Specialty Start Date End Date Donna Kovacs MD [address] [place] [address] [address] [place] [address] PCP - General Pediatrics 05/04/16 documented as of this encounter
--- OUTSIDE RECORDS SUMMARY | 2024-05-07 13:07 | XMS_ITS | Encounter Summary ---
Author Organization [facility] Address [address] [place] [address] Care Team Providers Care Checking Department Supervisor Name Role Phone Donna Kovacs MD Primary Care Provider [phone] Reason for Visit * Reason Comments Rash x 1 day Encounter Details Date Type Department Care Team (Late st Contact Info) Description 06/19/2016 5:00 PM INTERNAL COMMUNICATIONS MANAGER Office Visit [facility] [address] [place] [address] Provider, Bharath Exp [address] Insect [...] Comments Blood Pressure 120/72 06/19/2016 5:05 PM INTERNAL COMMUNICATIONS MANAGER Pulse 112 06/19/2016 5:05 PM INTERNAL COMMUNICATIONS MANAGER Temperature 36.8 ??C (98.3 ??F) 06/19/2016 5:05 PM CS T Respiratory Rate 16 06/19/2016 5:05 PM INTERNAL COMMUNICATIONS MANAGER Oxygen Saturation - - Inhaled Oxygen Concentration - - Weight 98 kg (216 lb) 06/19/2016 5:05 PM INTERNAL COMMUNICATIONS MANAGER Height - - Body Mass Index - - documented in this encounter Patient Instructions * Patient Instructions* Rosemary Segura APRN-RAHUL - 06/19/2016 5:15 PM INTERNAL COMMUNICATIONS MANAGER Cool compress to area Tylenol as needed [...] ask them during your visits. ?? 2016 [employer]. Information is for End User's use only and may not be sold, redistributed or otherwise used for commercial purposes. All illustrations and images included in CareNotes?? are the copyrighted property of [employer]. or [employer]. The above information is an barmaid only. It is not intended as medical advice for individual conditions or treatments. Talk to your doctor, nurse or pharmacist before following any medical regimen to see if it is safe and effective for you. RNAL COMMUNICATIONS MANAGER documented in this encounter Progress Notes * Rosemary Segura APRN-CNP - 06/19/2016 5:05 PM CST [facility] Chief Complaint Patient presents with [...] up with PCP or return to clinic RNAL COMMUNICATIONS MANAGER documented in this encounter Plan of Treatment Not on file documented as of this encounter Visit Diagnoses Diagnosis Insect bite, initial encounter- Primary documented in this encounter Care Teams Checking Department Supervisor Relationship Specialty Start Date End Date Donna Kovacs MD [address] [place] [address] PCP - General Pediatrics 05/04/16 documented as of this encounter
--- OUTSIDE RECORDS SUMMARY | 2024-05-07 13:07 | XMS_ITS | Encounter Summary ---
Author Organization [facility] Address [address] [place] [address] Care Team Providers Care Assembler Musical Equipment Name Role Phone Donna Kovacs MD Primary Care Provider [phone] Reason for Visit * Reason Onset Date Comments Reminder Call 10/05/2020 LM - Appt Remind er & 1 Visitor Policy Encounter Details Date Type Department Care Team (Late st Contact Info) Description 10/05/2020 Telephone [facility] [address] [place], [place] [phone] Kirsten Peter A Reminder Call (LM - [...] on filedocumented in this encounter Care Teams Assembler Musical Equipment Relationship Specialty Start Date End Date Donna Kovacs MD [address] [place] [address] [address] [place] [address] PCP - General Pediatrics 05/04/16 documented as of this encounter
--- OUTSIDE RECORDS SUMMARY | 2024-05-07 13:07 | XMS_ITS | Encounter Summary ---
Author Organization [facility] Address [address] [place] [address] Care Team Providers Care Print Shop Helper Name Role Phone Donna Kovacs MD Primary Care Provider Reason for Visit * Reason Onset Date Comments Follow-up 07/17/2019 Encounter Details Date Type Department Care Team (Late st Contact Info) Description 07/17/2019 Telephone [facility] Isabella Oliver [facility] [address] [place] [address] Nelly Coleman APRN-CNP [address] [place] [address] Follow-up Social History Tobacco Use [...] little better NANETTE King 07/17/2019 1:47 PM' [employer] documented in this encounter Plan of Treatment Not on file documented as of this encounter Visit Diagnoses Not on filedocumented in this encounter Care Teams Print Shop Helper Relationship Specialty Start Date End Date Donna Kovacs MD [address] [place] [address] PCP - General Pediatrics 05/04/16 documented as of this encounter
--- OUTSIDE RECORDS SUMMARY | 2024-05-07 13:07 | XMS_ITS | Encounter Summary ---
Author Organization [facility] Address [address] [facility] [place] [address] Care Team Providers Care Fuel Cell Battery Technician Name Role Phone Donna Kovacs MD Primary Care Provider Reason for Visit * Reason Comments Sore Throat Sinusitis Encounter Details Date Type Department Care Team (Late st Contact Info) Description 10/25/2018 12:00 PM CDT Office Visit [facility] [address] [place] [phone] Provider, Bharath Exp [address] Acute ethmoidal sinusitis, [...] Patient Instructions * Patient Instructions* Deepa Nuñez, HAT BLOCKING OPERATOR-FILLETER - 10/25/2018 12:08 PM CDT Images from [...] COMPLICATION AND REQUIRES IMMEDIATE EMERGENCY ATTENTION. Sinusitis PIG CONVEYOR OPERATOR: Sinusitis is inflammation or infection of your [...] ask them during your visits. ?? Copyright [employer] 2019 Information is for End User's use only and may not be sold, redistributed or otherwise used for commercial purposes. All illustrations and images included in CareNotes?? are the copyrighted property of [employer], [employer]. or [employer] The above information is an unit aid only. It is not intended as medical [...] fluticasone propionate (FLONASE) 50 MCG/ACT nasal spray [place] 2 sprays into each nostril once daily [...] propionate (FLONASE) 50 MCG/ACT nasal spray Sig: [place] 2 sprays into each nostril once daily Reasons: Allergic Rhinitis Dispense: 1 bottles Refill: 0 Recent Results (from the past 24 hour(s)) STREP A SCREEN Collection Time: 10/25/18 12:00 AM Result Value Ref Range Strep A Rapid POCT Negative Negative Strep A Internal Control Present Lot # [id number] Expiration Date 04/18/20 Deepa Nuñez APRN, FNP-BC [...] Strep A Internal Control Present Lot # [id number] Expiration Date 04/18/20 Throat ENTIRE THROAT (SURFACE REGION OF NECK) / Unknown 10/25/2018 Deepa [facility] - POINT OF CA RE ORDERABLES documented in this encounter Visit Diagnoses Diagnosis Acute ethmoidal sinusitis, recurrence not specified- Primary documented in this encounter Care Teams Fuel Cell Battery Technician Relationship Specialty Start Date End Date Donna Kovacs MD [address] [place] [address] PCP - General Pediatrics 05/04/16 documented as of this encounter
--- OUTSIDE RECORDS SUMMARY | 2024-05-07 13:07 | XMS_ITS | Encounter Summary ---
Author Organization [facility] Address [address] [place] [address] Care Team Providers Care Uniform Cap Operator Name Role Phone Donna Kovacs MD Primary Care Provider [phone] Reason for Visit * Reason Comments Sore Throat Ear Pain Encounter Details Date Type Department Care Team (Late st Contact Info) Description 08/12/2016 10:20 AM CDT Office Visit [facility] [address] [place] [phone] Provider, Bharath Exp Nameoki Strep throat (Primary [...] 08/12/2016 10: 29 AM CDT Growth Chart: [facility] (Girls, 2- 20 Years) documented in this encounter Patient Instructions * Patient Instructions* Ryan Singh APRN-SPECIAL MAKEUP FX ARTIST INSTRUCTOR - 08/12/2016 10:37 AM CDT Images from [...] child. The above information is an educational paraprofessional only. It is not intended as medicaladvice for individual conditions or treatments. Talk to your doctor, nurse or pharmacist before following any medical regimen to see if it is safe and effective for you. ?? 2016 [employer]. Information is for End User's use only and may not be sold, redistributed or otherwise used for commercial purposes. All illustrations and images included in CareNotes?? are the copyrighted property of [employer]. or [employer]. documented in this encounter Progress Notes * [...] Strep A INTERNAL CONTROL Present Lot Number [id number] Expiration Date 03/30/18 Encounter Diagnosis Name Primary? [...] Strep A Internal Control Present Lot # [id number] Expiration Date 03/30/18 Throat ENTIRE THROAT (SURFACE REGION OF NECK) / Unknown 08/12/2016 10:36 AM CDT Ryan Holtgrave AUTOMOTIVE SERVICE ASSISTANT-SPECIAL MAKEUP FX ARTIST INSTRUCTOR LAB - POINT OF CARE ORDERABLES documented in this encounter Visit Diagnoses Diagnosis Strep throat- Primary Streptococcal sore throat documented in this encounter Care Teams Uniform Cap Operator Relationship Specialty Start Date End Date Donna Kovacs MD [address] [place] [address] PCP - General Pediatrics 05/04/16 documented as of this encounter
--- OUTSIDE RECORDS SUMMARY | 2024-05-07 13:07 | XMS_ITS | Encounter Summary ---
Author Organization [facility] Address [address] [facility] [place] [address] Care Team Providers Care Workers Compensation Claims Specialist Name Role Phone Donna Kovacs MD Primary Care Provider Reason for Visit * Reason Comments Sore Throat Encounter Details Date Type Department Care Team (Late st Contact Info) Description 05/06/2016 11:20 AM OCCUPATIONAL ANALYST Office Visit [facility] [address] [address] Provider, Bharath Exp Nameoki Acute [...] Comments Blood Pressure 120/80 05/06/2016 11:36 AM OCCUPATIONAL ANALYST Pulse 105 05/06/2016 11:36 AM OCCUPATIONAL ANALYST Temperature 36.9 ??C (98.5 ??F) 05/06/2016 11:[address] Respiratory Rate 16 05/06/2016 11:36 AM OCCUPATIONAL ANALYST Oxygen Saturation - - Inhaled Oxygen Concentration - - Weight 101.6 kg (224 lb) 05/06/2016 11:36 AM OCCUPATIONAL ANALYST Height - - Body Mass Index - - documented in this encounter Patient Instructions * Patient Instructions* Rosemary Bro APRN-TOP POLISHER - 05/06/2016 11:47 AM OCCUPATIONAL ANALYST Advised to use OTC recommendations as given [...] when his symptoms go away. ?? 2016 [employer]. Information is for End User's use only and may not be sold, redistributed or otherwise used for commercial purposes. All illustrations and images included in CareNotes?? are the copyrighted property of [employer]. or [employer]. The above information is an educational interpreter only. It is not intended as medical advice for individual conditions or treatments. Talk to your doctor, nurse or pharmacist before following any medical regimen to see if it is safe and effective for you. PATIONAL ANALYST documented in this encounter Progress Notes * Rosemary Bro APRN-CNP - 05/06/2016 11:35 AM CST [facility] Chief Complaint Patient presents [...] up with PCP or return to clinic PATIONAL ANALYST documented in this encounter Miscellaneous Notes * Addendum Note - Rosemary Bro APRN-CNP - 05/10/2016 9:39 AM CSTAddended by: ROSEMARY BRO on: 05/10/2016 09:39 AM Modules accepted: Orders PATIONAL ANALYST documented in this encounter Plan of Treatment Not on file documented as of this encounter Procedures Procedure Name Priority Date/Time Associated Diagnosis Comments CULTURE RESPIRATORY UPPER Routine 05/06/2016 11:46 AM OCCUPATIONAL ANALYST Acute pharyngitis, unspecified etiology STREP A SCREEN - POINT OF CARE (AMB) STL Routine 05/06/2016 11:45 AM OCCUPATIONAL ANALYST Acute pharyngitis, unspecified etiology documented in this encounter Results * (ABNORMAL) [facility] Throat Culture (05/06/2016 11:46 AM OCCUPATIONAL ANALYST) Upper Respiratory Culture Final report(A) [facility] ACCOUNT [...] OF NECK) / Unknown 05/06/2016 11:46 AM OCCUPATIONAL ANALYST 05/07/2016 Narrative Resulting Agency Comment [facility] [address] [facility] [phone] Rosemary FITZPATRICK LAB - MICROBI OLOGY ORDERABLES [facility] ACCOUNT BILL [address] [place] [address] * STREP A SCREEN (05/06/2016 11:45 AM OCCUPATIONAL ANALYST) Strep A Rapid POCT Negative Negative Strep A Internal Control Present Lot # [id number] Expiration Date [id number] Throat ENTIRE THROAT (SURFACE REGION OF NECK) / Unknown 05/06/2016 11:45 AM OCCUPATIONAL ANALYST Rosemary L Bro STOCK PREPARER-TOP POLISHER LAB - POINT O F CARE ORDERABLES documented in this encounter Visit Diagnoses Diagnosis Acute pharyngitis, unspecified etiology- Primary documented in this encounter Care Teams Workers Compensation Claims Specialist Relationship Specialty Start Date End Date Donna Kovacs MD [address] [place] [address] PCP - General Pediatrics 05/04/16 documented as of this encounter
--- OUTSIDE RECORDS SUMMARY | 2024-05-07 13:07 | XMS_ITS | Encounter Summary ---
Author Organization [facility] Address [address] [facility] [place] [address] Care Team Providers Care Golf Manager Name Role Phone Donna Kovacs MD Primary Care Provider Reason for Visit * Reason Onset Date Comments Results 05/10/2016 Encounter Details Date Type Department Care Team (Late st Contact Info) Description 05/10/2016 Telephone [facility] [address] [facility] [place] [address] Rosemary Segura, NUTRITION SPECIALIST-[employer] [address] [address] Results Social History Tobacco [...] on filedocumented in this encounter Care Teams Golf Manager Relationship Specialty Start Date End Date Donna Kovacs MD [address] [place] [address] [address] [place] [address] PCP - General Pediatrics 05/04/16 documented as of this encounter
== END 2024-05-03 04:28 | disposition home or self-care (01) ==
PROVIDERS: Emergency Provider Student in an Organized Health Care Education/Training Program
DX: S00.83XA Contusion of other part of head, initial encounter (principal); S00.511A Abrasion of lip, initial encounter; Y04.2XXA Assault by strike against or bumped into by another person, initial encounter; E66.01 Morbid (severe) obesity due to excess calories; Z68.41 Body mass index [BMI] 40.0-44.9, adult; F41.8 Other specified anxiety disorders
CPT/HCPCS: 70486; 99284; A9270

== ENCOUNTER 2024-12-13 21:08 | Emergency (ER) | payer OTHER, SELFPAY ==
--- OUTSIDE RECORDS SUMMARY | 2024-12-13 21:10 | XMS_ITS | Data Portability ---
Author Organization [facility] Address [address] [place] [address] Assessment Encounter Date Assessment Date Assessment LastModified by Organization Details LastModified Time 10/07/2024 10/07/2024 Annual gynecological exam performed. Patient will come back in a year unless there are new symptoms. Suggest Calcium with Vitamin D if not eating in diet. Patient advised to get annual flu shot. Recommend yearly physicals and preform monthly breast exams. Genetic testing is available for patients with family history of cancer. Engage in safe sexual practices, use condoms. Encouraged to have daily exercise. Avoid tobacco and illicit drugs, moderation of alcohol. If BMI greater than 25 dietary consult advised. If you have any questions please call or email. pap collected pnv daily f/u 12 week new ob and first look labs today Not available 10/07/2024 16:00:30 Plan of Treatment Reminders Order Date Submit Date Provider Last Modified By Organization Details Last Modified Time Details Appointments U/S OB BASELIN E 2024 01:30P M ULTRASOUND Not available Not available Not available OB ROUTINE 2024 02:45P M VANE CASSIDY MD Not available Not available Not available Lab genetic screen, unspeci fied specime n 2024 025 JOSE Cedeno, [address] [facility], [place], [address], 10/30/2024 17:22:56 pap, IG + reflex HPV if ASC-U - if positiv e HPV run subtypi ng 16,18/4 5 ADD STD TESTING BEVERLY/CHL AMYDIA/ TRICH [address] [facility] (Lab), [address], [place], [address], 10/13/2024 19:48:31 HbA1c (hemogl obin A1c), blood [address] [facility] (Lab), [address], [place], [address], 10/08/2024 10:47:24 type + screen, blood [address] [facility] (Lab), [address], [place], [address], 10/08/2024 10:47:24 rubella igg Ab, titer, serum [address] [facility] (Lab), [address], [place], [address], 10/08/2024 10:47:24 CBC w/ auto diff [address] [facility] (Lab), [address], [place], [address], 10/08/2024 10:47:23 hepatit is C virus Ab, serum [address] [facility] (Lab), [address], [place], [address], 10/08/2024 10:47:23 HBsAg (hepati tis B surface Ag), serum [address] [facility] (Lab), [address], [place], [address], 10/08/2024 10:47:22 RPR (rapid plasma reagin) , serum [address] [facility] (Lab), [address], [place], [address], 10/08/2024 10:47:25 HIV 1+2 AB + HIV 1 p24 Ag, qualita tive immunoa ssay, serum [address] [facility] (Lab), [address] [place], [address], 10/08/2024 10:47:22 aneuplo idy risk, chromos ome specifi c circula ting cell free (ccf) DNA, materna l serum 2024 025 WILLERNIE [facility], [address], [place], [address], 10/21/2024 00:56:18 Referral None recorde d. Procedures None recorde d. Surgeries None recorde d. Imaging US, obstetr ic, nuchal translu cency [facility] [address], [address], [place], [address], 10/30/2024 18:43:42 US, obstetr ic, 1st trimest er [address] [facility] [address], [place], [address], 10/28/2024 19:10:16 Medication Orders ondanse chris 8 mg disinte grating tablet [address] [facility], [address] [place], [address], 10/28/2024 16:12:56 Patient TargetsNo targets recorded. Patient InstructionsNo instructions recorded. Reason for Referral None Reported. Results Created Date Observation Date Name Description Value Unit Range Abnormal Flag Note LastModifiedBy Organization Detail LastModifiedTime 10/22/1910/21/2024 [UNIT Y] ANEUP LOIDY NIPT fraction 2.7% normal Not Available [facility] [address], [place], [address], 10/21/2024 00:56:17 10/22/19 25 10/21/2024 [UNIT Y] ANEUP LOIDY NIPT 22Q11.2 microdeletio n LOW RISK <1 in 10,000 normal Not Available [facility] [address] [facility], [place], [address], 10/21/2024 00:56:17 10/22/19 25 10/21/2024 [UNIT Y] ANEUP LOIDY NIPT sex chromosome aneuploidy NOT DETECT ED normal Not Available [facility] [address] [place], [address], 10/21/2024 00:56:17 10/22/19 25 10/21/2024 [UNIT Y] ANEUP LOIDY NIPT monosomy X LOW RISK <1 in 10,000 normal Not Available [facility] [address] [place], [address], 10/21/2024 00:56:17 10/22/19 25 10/21/2024 [UNIT Y] ANEUP LOIDY NIPT trisomy 13 LOW RISK <1 in 10,000 normal Not Available [facility] [address] [place], [address], 10/21/2024 00:56:17 10/22/19 25 10/21/2024 [UNIT Y] ANEUP LOIDY NIPT trisomy 18 LOW RISK <1 in 10,000 normal Not Available [facility] [address] [place], [address], 10/21/2024 00:56:17 10/22/19 25 10/21/2024 [UNIT Y] ANEUP LOIDY NIPT trisomy 21 LOW RISK <1 in 10,000 normal Not Available [facility] [address] [place], [address], 10/21/2024 00:56:17 10/22/19 25 10/21/2024 [UNIT Y] ANEUP LOIDY NIPT sex MALE normal Not Available [facility] [address] [place], [address], 10/21/2024 00:56:17 10/22/19 25 10/21/2024 [UNIT Y] ANEUP LOIDY NIPT gestation SINGLE TON normal Not Available [facility] [address], [place], [address], 10/21/2024 00:56:17 10/22/19 25 10/21/2024 [UNIT Y] ANEUP LOIDY NIPT for detailed report, see pdf See PDF normal Not Available [facility] [address], [place], [address], 10/21/2024 00:56:17 10/31/19 25 10/30/2024 [UNIT Y] NADEEM Montiel sickle cell disease/beta -thalassemia /hemoglobino pathies carrier screen NEGATI VE normal Not Available [facility] [address], [place], [address], 10/30/2024 17:22:56 10/31/19 25 10/30/2024 [UNIT Y] NADEEM Montiel alpha-thalas semia carrier screen NEGATI VE normal Not Available [facility] [address], [place], [address], 10/30/2024 17:22:56 10/31/19 25 10/30/2024 [UNIT Y] NADEEM Montiel cystic fibrosis carrier screen NEGATI VE normal Not Available [facility] [address], [place], [address], 10/30/2024 17:22:56 10/31/19 25 10/30/2024 [UNIT Y] NADEEM Montiel spinal muscular atrophy carrier screen NEGATI VE 2 SMN1 copies , SNP not presen t normal Not Available [facility] [address], [place], [address], 10/30/2024 17:22:56 10/31/19 25 10/30/2024 [UNIT Y] NADEEM Montiel for detailed report, see pdf See PDF normal Not Available [facility] [address], [place], [address], 10/30/2024 17:22:56 10/08/1910/07/2024 HEPAT ITIS B SURFA CE ANTIG EN hepatitis B surface antigen Non-re active non-re active This assay was perfo rmed using [employer] ratio n reage nts and test kits. Value s obtai ofelia with other assay metho ds or kits canno t be used inter shea eably . Not Available [facility] (Lab) [address], [place], [address], 10/08/2024 10:47:22 10/08/19 25 10/07/2024 HIV 1/2 ANTIG EN/AN TIBOD Y, REFLE X CONFI RMATI ON HIV antigen/anti body Nonrea ctive nonrea ctive HIV-1 antig en and HIV-1 /HIV- 2 antib odies were not detec jesse. No labor atory evide nce of HIV infec tion. Not Available [facility] (Lab) [address], [place], [address], 10/08/2024 10:47:22 10/08/19 25 10/07/2024 CBC W/DIF F WBC 11.3 10'3/ uL 3.5-10 .5 high Not Available [facility] (Lab) [address], [place], [address], 10/08/2024 10:47:23 10/08/19 25 10/07/2024 CBC W/DIF F RBC 4.38 10'6/ uL (based on docume nted legal sex) 3.80-5 .20 Not Available [facility] (Lab) [address], [place], [address], 10/08/2024 10:47:23 10/08/19 25 10/07/2024 CBC W/DIF F HGB 12.4 g/dL (based on docume nted legal sex) 11.6-1 5.4 Not Available [facility] (Lab) [address], [place], [address], 10/08/2024 10:47:23 10/08/19 25 10/07/2024 CBC W/DIF F HCT 35.8 % (based on docume nted legal sex) 34.0-4 5.0 Not Available [facility] (Lab) [address], [place], [address], 10/08/2024 10:47:23 10/08/19 25 10/07/2024 CBC W/DIF F MCV 81.7 fL 80.0-9 9.0 Not Available [facility] (Lab) [address], [place], [address], 10/08/2024 10:47:23 10/08/19 25 10/07/2024 CBC W/DIF F MCH 28.3 pg 27.0-3 4.0 Not Available [facility] (Lab) [address], [place], [address], 10/08/2024 10:47:23 10/08/19 25 10/07/2024 CBC W/DIF F MCHC 34.6 g/dL 32.0-3 5.5 Not Available [facility] (Lab) [address], [place], [address], 10/08/2024 10:47:23 10/08/19 25 10/07/2024 CBC W/DIF F RDW 14.6 % 11.0-1 5.0 Not Available [facility] (Lab) [address], [place], [address], 10/08/2024 10:47:23 10/08/19 25 10/07/2024 CBC W/DIF F plt 329 10'3/ uL 150-40 0 Not Available [facility] (Lab) [address], [place], [address], 10/08/2024 10:47:23 10/08/19 25 10/07/2024 CBC W/DIF F MPV 10.7 fL 8.8-12 .1 Not Available [facility] (Lab) [address], [place], [address], 10/08/2024 10:47:23 10/08/19 25 10/07/2024 CBC W/DIF F NRBC's 0.0 % 0.0 Not Available [facility] (Lab) [address], [place], [address], 10/08/2024 10:47:23 10/08/19 25 10/07/2024 CBC W/DIF F absolute NRBCs 0.0 10'3/ uL no refere nce range establ ished Not Available [facility] (Lab) [address], [place], [address], 10/08/2024 10:47:23 10/08/19 25 10/07/2024 CBC W/DIF F neutrophils 64.5 % 34.0-7 3.0 Not Available [facility] (Lab) [address], [place], [address], 10/08/2024 10:47:23 10/08/19 25 10/07/2024 CBC W/DIF F lymphocytes 27.7 % 15.0-5 0.0 Not Available [facility] (Lab) [address], [place], [address], 10/08/2024 10:47:23 10/08/19 25 10/07/2024 CBC W/DIF F monocytes 5.9 % 1.0-15 .0 Not Available [facility] (Lab) [address], [place], [address], 10/08/2024 10:47:23 10/08/19 25 10/07/2024 CBC W/DIF F eosinophils 0.8 % 0.0-8. 0 Not Available [facility] (Lab) [address] [place], [address], 10/08/2024 10:47:23 10/08/19 25 10/07/2024 CBC W/DIF F basophils 0.4 % 0.0-2. 0 Not Available [facility] (Lab) [address], [place], [address], 10/08/2024 10:47:23 10/08/19 25 10/07/2024 CBC W/DIF F immature granulocytes 0.7 % no define d refere nce range Immat ure Granu locyt es (IG) repre sents autom ated enume ratio n of Metam yeloc ytes, Myelo cytes and Promy elocy janice when IG is < 5%. Blast s are not inclu ded in IG and repor jesse separ ately if prese nt. Not Available [facility] (Lab) [address], [place], [address], 10/08/2024 10:47:23 10/08/19 25 10/07/2024 CBC W/DIF F absolute neutrophils 7.3 10'3/ uL 1.5-8. 0 Not Available [facility] (Lab) [address] [place], [address], 10/08/2024 10:47:23 10/08/19 25 10/07/2024 CBC W/DIF F absolute lymphocytes 3.1 10'3/ uL 1.0-4. 0 Not Available [facility] (Lab) [address], [place], [address], 10/08/2024 10:47:23 10/08/19 25 10/07/2024 CBC W/DIF F absolute monocytes 0.7 10'3/ uL 0.2-1. 0 Not Available [facility] (Lab) [address], [place], [address], 10/08/2024 10:47:23 10/08/19 25 10/07/2024 CBC W/DIF F absolute eosinophils 0.1 10'3/ uL 0.0-0. 6 Not Available [facility] (Lab) [address], [place], [address], 10/08/2024 10:47:23 10/08/19 25 10/07/2024 CBC W/DIF F absolute basophils 0.1 10'3/ uL 0.0-0. 3 Not Available [facility] (Lab) [address], [place], [address], 10/08/2024 10:47:23 10/08/19 25 10/07/2024 CBC W/DIF F absolute immature granulocytes 0.1 10'3/ uL 0.00-0 .10 Refer ence range s for nonbi nary/ inter sex or unspe cifie d gende r patie nts have not been estab lishe d. Pleas e refer to [facility] table for range s estab lishe d for cisge nder patie nts and evalu ate in the clini corona parvin xt of the indiv idual patie nt: https ://la and book. nm.or g/gen derx Not Available [facility] (Lab) [address], [place], [address], 10/08/2024 10:47:23 10/08/19 25 10/07/2024 HEPAT ITIS C ANTIB KWADWO SCREE N, REFLE X TO CONFI RMATI ON hepatitis C antibody Non-re active non-re active Antib odies to HCV Not Detec jesse, does not exclu de the possi bilit y of expos ure to HCV. Not Available [facility] (Lab) [address], [place], [address], 10/08/2024 10:47:23 10/08/19 25 10/07/2024 TYPE/ RH/SC REEN ABO/Rh type A POS Not Available [facility] (Lab) [address], [place], [address], 10/08/2024 10:47:24 10/08/19 25 10/07/2024 TYPE/ RH/SC REEN antibody screen NEG Not Available [facility] (Lab) [address], [place], [address], 10/08/2024 10:47:24 10/08/19 25 10/07/2024 TYPE/ RH/SC REEN exp date 2024 23:59 Not Available [facility] (Lab) [address], [place], [address], 10/08/2024 10:47:24 10/08/19 25 10/07/2024 RUBEL LA IGG ANTIB KWADWO, QUANT rubella antibodies, IgG Reacti ve reacti ve Not Available [facility] (Lab) [address], [place], [address], 10/08/2024 10:47:24 10/08/19 25 10/07/2024 RUBEL LA IGG ANTIB KWADWO, QUANT rubella antibodies, IgG quant 17.9 IU/mL >=10 Non-r eacti ve (Non- Immun e) <10 IU/mL React jana (Immu ne) > or = 10 IU/mL Not Available [facility] (Lab) [address], [place], [address], 10/08/2024 10:47:24 10/08/19 25 10/07/2024 HEMOG LOBIN A1C hemoglobin A1C 5.1 % 4.0-5. 6 The Ameri can Diabe janice [employer] iatio n recom mends that a prima ry goal of thera py daniel lemon be a HBA1C of < 7% and that physi cians daniel d reeva luate the treat ment regim en in patie nts with HBA1C value s consi stent ly > 8%. <5.7% Fern l 5.7 - 6.4% Incre ased risk for diabe janice >=6.5 % Diagn ostic of diabe janice <7.0% Goal of thera py >8.0% Actio n sugge sted Not Available [facility] (Lab) [address], [place], [address], 10/08/2024 10:47:24 10/08/19 25 10/07/2024 RPR SCREE N, REFLE X TITER /CONF IRMAT ION RPR qualitative Nonrea ctive nonrea ctive Not Available [facility] (Lab) [address], [place], [address], 10/08/2024 10:47:25 10/08/19 25 10/07/2024 IMAGE GUIDE D PAP, REFLE X HPV IF ASCUS ONLY image guided Pap, reflex HPV ASCUS only SEE RESULT S BELOW CASE REPOR T: Cytol ogy Gynec ologi corona Repor t Case: [id number] Autho sunny renard Provi zander: Shanae Rodriguez, KEVIN Colle cted: 10/07 1716 Order ing Locat ion: [place] [facility] Recei adri: 10/08 0858 First Scree n: Luz Davis, [place] Rescr een: Jenae Coates, CT Speci men: Scree ngoc Pap - Image d, Cervi x STATE MENT OF ADEQU ACY: Satis facto ry for evalu ation Trans forma tion zone compo nent absen t The absen ce of an endoc ervic al compo nent was confi rmed by an addit ional stephen ner. ----- ----- ----- ----- ----- ----- ----- ----- ----- ----- ----- ----- ----- ----- ----- ----- ----- ---- FINAL DIAGN OSIS: Negat jana for Intra epith elial Marino montiel or Bryce padilla (NIL) . Elect herbert lemon by Jenae Coates, CT on 2024 at 1844 CDT ----- ----- ----- ----- ----- ----- ----- ----- ----- ----- ----- ----- ----- ----- ----- ----- ----- ---- COMME NT: This speci men was revie wed by a Cytot echno logis t and/o r Patho logis t (as indic ated in this repor t) after evalu ation using the Thinp rep Imagi ng Syste m. CLINI CORONA INFOR MATIO N: Menst rual Statu s: LMP (if appli cable ): Clini corona Histo ry/Pr eviou s Pap: Type of Neopl yudi (if appli cable ): Signi fican t Clini corona Findi ngs: Other Histo ry: Hormo graciela (if appli cable ): PAP EDUCA REGAN L NOTE: The Pap Test is a scree ngoc test with an inher ent false negat jana rate. Liqui d-bas ed sampl ing may decre ase, but will not elimi florian, false negat jana resul ts. A negat jana resul t does not precl ude the prese nce and/o r devel opmen t of disea se, since the prese nce of abnor mal cells in the sampl e depen ds on the locat ion of the lesio n and sampl ing techn ique. Samia nued regul ar scree ngoc is the best metho d of cance r preve ntion . If repor jesse cytol ogic findi ng do not corre late with physi corona and/o r histo rical findi ngs, furth er inves tigat ion is recom johan d, as clini ann fields nted. Not Available [facility] (Lab) [address], [place], [address], 10/13/2024 19:48:31 10/08/19 25 10/07/2024 CT/GC AND TRICH OMONA S VAGIN ROMY (RRNA ), THINP REP VIAL CT/GC and trichomonas vaginalis (rrna), thinprep SEE RESULT S BELOW negati ve CHLAM YDIA TRACH OMATI S, PCR: Negat jana NEISS ERIA GONOR RHOEA E, PCR: Negat jana TRICH OMONA S VAGIN ROMY RIBOS OMAL RNA (RRNA ): Negat jana Not Available [facility] (Lab) [address], [place], [address], 10/13/2024 19:48:32 10/29/1910/28/2024 CULTU RE: URINE result report SEE RESULT S BELOW Test: Cultu re: Urine Speci men Sourc e: Urine Voide d Speci men Type: Urine Speci men Date: 2024 1549 Resul t Date: 2024 0011 Resul t Statu s: Final resul t Abnor mal: No Resul ting Lab: [facility] [address] [facility] [address] Tel: CULTU RE ----- ----- ----- --- Cultu re resul t (>=3 organ isms prese nt) indic ates possi ble conta minat ion. Repea t cultu re if sympt oms indic ate. Not Available [facility] (Lab) [address], [place], [address], 10/31/2024 01:15:59 10/08/19 25 10/07/2024 US, ayaz tric, follo w-up No observ ation record ed. [address], [place], [address], 10/13/2024 23:20:24 10/29/19 25 10/28/2024 US, ayaz dominguez, nucha l trans lucen cy No observ ation record ed. [email or web address], [place], [address], 10/28/2024 18:30:24 10/29/19 25 10/28/2024 US, ayaz dominguez, 1st trime ster No observ ation record ed. [email or web address], [place], [address], 10/28/2024 18:30:40 06/11/10/28/2024 US, obste tric, nucha l trans lucen cy No observ ation record ed. [email or web address] [address], [place], [address], 10/31/2024 22:03:17 Result Notes None recorded. Problems Name Problem SNOMED Code Status Onset Date Resolution Date Notes Provider Name and Address Organization Details Recorded Time Body mass index 40+ - severely obese 545351801 Active 2024 nst 34wks Elaina Hines [facility], [facility] 15:58:23 61242365 Active 2024 MALINA Nguyen [facility], [facility] 15:37:45 Past history of section 292329498 Active 2024 x2, plan for repeat VANE CASSIDY MD [address], [place], [address], , P[facility] 16:12:08 Problem Notes None recorded. Procedures Surgical History Date Name Laterality Status Provider Name and Address Organization Details Recorded Time 12/04/19 23 section completed Elainaanne Hines [facility] 10/07/2024 15:54:49 05/20/19 22 [facility]/07/2024 15:55:00 12/07/19 21 section completed [facility] 10/07/2024 15:54:41 05/20/19 03 [facility] 10/07/2024 15:55:39 Imaging Results None recorded. Procedure Notes None recorded. Medical Equipment None Reported. Allergies No known drug allergies Medications Name Sig Start Date Stop Date Status Note LastModified by Organization Details LastModified Time ibuprofen 800 mg tablet TAKE 1 TABLET BY MOUTH EVERY 6 TO 8 HOURS NEEDED 10/07 completed Not Available Not Available Not Available hydroxyzine HCl 50 mg tablet TAKE 1 TABLET BY MOUTH EVERY 8 HOURS NEEDED 10/07 completed Not Available Not Available Not Available ondansetron 8 mg disintegrat ing tablet DISSOLVE 1 TABLET IN MOUTH EVERY 6 TO 8 HOURS active Not Available Not Available No t Available amoxicillin 875 mg-potassiu m clavulanate 125 mg tablet TAKE 1 TABLET BY MOUTH TWICE DAILY WITH FOOD FOR 7 DAYS 10/28 completed Not Available Not Available Not Available chlorhexidi ne gluconate 0.12 % mouthwash TAKE 15 MUCOUS MEMBRANE MILLILITE RS 2 TIMES A DAY 10/07 completed Not Available Not Available Not Available Vitals Date Recorded Body height Body mass index (BMI) Body weight Systolic And Diastolic Provider Name and Address Organization Details Last Updated DateTime 10/07/2024 165.1 cm 43.1 kg/m2 770789.42 g 123/75 mm[Hg] Elaina Hines [facility] 10/07/2024 15:48:52 Date Recorded Body height Body mass index (BMI) Body weight Systolic And Diastolic Provider Name and Address Organization Details Last Updated DateTime 10/28/2024 165.1 cm 43.4 kg/m2 597626.61 g 117/76 mm[Hg] MALINA Cedillo [facility] 10/28/2024 15:44:57 Social History Question Answer Notes LastModified by Organizat ion Details LastModified Time Tobacco Smoking Status Never Smoker Elaina Hines [facility], [facility] 10/07/2024 15:54:03 If You Are , What Was Your Level Of Alcohol Consumption Prior To ? Occasional [email or web address] Information not available 10/07/2024 Are You Blind Or Do You Have Difficulty Seeing? No Information n ot available 10/07/2024 What Is Your Level Of Caffeine Consumption? Moderate [email or web address] Information not available 10/07/2024 In The 14 Days Before Symptom Onset, Have You Had Close Contact With A Laboratory-confirm ed COVID-19 While That Case Was Ill? No [email or web address] Information n ot available 10/07/2024 In The 14 Days Before Symptom Onset, Have You Had Close Contact With A Person Who Is Under Investigation For COVID-19 While That Person Was Ill? No [email or web address] Information not available 10/07/2024 Have You Been To An Area Known To Be High Risk For COVID-19? No Information not available 10/07/2024 Are You Deaf Or Do You Have Serious Difficulty Hearing? No [email or web address] Information not available 10/07/2024 What Type Of Diet Are You Following? REGULAR [email or web address] Information n ot available 10/07/2024 Do You Use Your Seat Belt Or Car Seat Routinely? Yes [email or web address] Information not available 10/07/2024 Are You Sexually Active? Yes [email or web address] Information not available 10/07/2024 Do You Have Smoke And Carbon Monoxide Detectors In Your Home? Yes [email or web address] Information not available 10/07/2024 Do You Use Sunscreen Routinely? Yes [email or web address] Information not available 10/07/2024 Has Tobacco Cessation Counseling Been Provided? No [email or web address] Information not available 10/07/2024 Do You Have Difficulty Walking Or Climbing Stairs? No [email or web address] Information not available 10/07/2024 Sex: Unknown Functional Status Question Answer Note LastModified by Organizat ion Details LastModified Time Do you use any illicit or recreational drugs? No [email or web address] Information not available 10/07/2024 Do you or have you ever used any other forms of tobacco or nicotine? No [email or web address] Information not available 10/07/2024 What is your level of alcohol consumption? None [email or web address] Information not available 10/07/2024 Are you able to walk? YESWOREST [email or web address] Information not available 10/07/2024 Are you able to care for yourself independently? Yes [email or web address] Information not available 10/07/2024 Do you have difficulty dressing, bathing, grooming, or toileting? No [email or web address] Information not available 10/07/2024 What is your exercise level? Moderate [email or web address] Information not available 10/07/2024 Mental Status Question Answer Note LastModified by Organization D etails LastModified Time Do you feel stressed (tense, restless, nervous, or anxious, or unable to sleep at night)? [id number] [email or web address] Information not available 10/07/2024 Family History Relationship Description Onset Age of this Age Resolved Age Notes LastModified by Organization Details LastModified Time Mother Hypertensive disorder Not available 10/07 15:53:37 Father Hypertensive disorder [email or web address] Not available 10/07 15:53:37 Father Diabetes mellitus [email or web address] Not available 10/07 15:53:48 Sister Hypertensive disorder [email or web address] Not available 10/07 15:53:37 Medical History Condition Response Other N Blood Transfusion N Dermatologic Disorders N Gestational Diabetes N Anxiety Disorder Y Autoimmune disease N Arthritis N Polyps N Infertility N Acid Reflux (GERD) N Cancer N Varicosities N Stroke N Neurologic/Epilepsy N Fibromyalgia N Headaches N Kidney Disease N Heart Problems N Kidney or Bladder Problems N Eating Disorder N Art (IVF or FET) N Hepatitis/Liver Disease N No Past Medical History N Urinary Tract Infection N Asthma N Trauma/Violence N Thrombophilias N Allergies (Food, seasonal, environmental ) N Breast Cancer N Drug/Latex Allergies/Reactions N Lung Disease N Defects or Inherited Disease N Breast Problem N Hematologic disorders N Anesthesia Complications N History of STI N Deep Vein Thrombosis N Polycystic ovary syndrome N History of abnormal pap N Endometriosis N High Cholesterol N Thyroid Problems N GI Problems N Anemia N Psychiatric Illness N Ovarian Cancer N Diabetes N Pulmonary (TB, Asthma) N Eczema N Abuse/Domestic Violence N Depression/ depression N Heart Disease N Pre-Eclampsia N Hypertension N Osteoporosis N Gynecological History Statement/Question Response Abnormal Pap N Date of Last Colonoscopy Date of Last Mammogram Date of LMP 07/31/2024 STIs/STDs N Date of DEXA bone scan Date of Last Pap Smear Current Control Method LMP Approximate Obstetrics History GPAL:G 3 P 2 0 0 2 Type Value Full Term 2 Living 2 Total 3 Past Encounters Encounter ID Performer Location Encounter Start Date Encounter Closed Date Diagnosis/Indication Diagnosis SNOMED-CT Code Diagnosis ICD10 Code Diagnosis Note [id number] Sharan Yen MD [facility] [address] [address] 10/07/2024 14:43:02 10/07/2024 15:22:50 [id number] Shanae Hernández CNM [facility] [address] [address] 10/07/2024 14:44:50 10/07/2024 16:01:12 screening [id number] Z36.89 Genetic in vestigation procedure 65152767 Z31.430 Gynecologi c examination 46154845 Z01.419 [id number] Sharan Yen MD [facility] [address] [address] 10/28/2024 14:40:59 10/28/2024 15:42:44 screening [id number] Z36.82 Z3A.12 [id number] VANE CASSIDY MD [facility] [address] [address] 10/28/2024 14:41:13 10/28/2024 16:16:27 Nausea and vomiting in [id number] O21.9 - nausea worsening- hx of hyperemesi s with previous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
--- OUTSIDE RECORDS SUMMARY | 2024-12-13 21:10 | XMS_ITS | Clinical Summary ---
Author Organization [facility] Address [address] [place] [address] Care Team Providers Care Evaluator Name Role Phone Donna Kovacs MD Primary Care Provider [phone] Source Comments [facility],non-owned Affiliates and Associated Physician Practices is amultiple site organization consisting of ambulatory clinics and hospital sitesin [place], [place], [place]. This disclosure is being madepursuant to the Care Everywhere program and may not contain all information available regarding this patient. Last updated 18.[facility] [employer] Allergies No known active allergies Medications * Be aware that medications may not be up to date on this document. Alwaysverify current medications with the patient. No known medications Active Problems Problem Noted Date Diagnosed Date Ultrasound for scr eening for growth restriction 10/03/2020 Social History Tobacco Use Types Packs/Day Years Used Date Smoking Tobacco: Never Smokeless Tobacco: Never Comments No Sex and Gender Information Value Date Recorded Sex Assigned at Not on file Legal Sex Female 11:13 AM [employer] Gender Identity Not on file Sexual Orientation Not on file Last Filed Vital Signs Vital Sign Reading Time Taken Comments Blood Pressure 120/80 07/15/2019 9:41 AM [employer] Pulse 84 07/15/2019 9:41 AM [employer] Temperature 37.1 C (98.7 F) 07/15/2019 9:41 AM [employer] Respiratory Rate 15 07/15/2019 9:41 AM [employer] Oxygen Saturation 97% 10/25/2018 11:54 AM CDT Inhaled Oxygen Concentration - - Weight 108.9 kg (240 lb) 07/15/2019 9:41 AM [employer] Height 167.6 cm (5' 6) 07/15/2019 9:41 AM [employer] [facility] Body Mass Index 38.74 07/15/2019 9:41 AM [employer] [facility] Plan of Treatment Health Maintenance Due Date Last Done Comments HIV SCREENING 2014 HPV VACCINE (1 - 3-dose series) 2014 CHLAMYDIA/GONORRHEA SCREENING 2015 HEPATITIS C SCREENING 07/06/2017 DTAP/TDAP/TD VACCINES (1 - Tdap) 2018 HEPATITIS B VACCINE (1 of 3 - 19+ 3-dose series) 2018 PAP SMEAR 2020 COVID-19 VACCINE (2 - 2023-2 5 season) 2024 09/10/2020 DEPRESSION SCREENING 05/20/2024 INFLUENZA VACCINE (#1) 2025 02/23/2020 ZOSTER VACCINE (1 of 2) 2049 HIB VACCINE Aged Out No longer eligi ble based on patient's age to complete this topic MENINGOCOCCAL (Group B) VACC INE SHARED DECISION-MAKING Aged Out No longer eligibl e based on patient's age to complete this topic MENINGOCOCCAL GROUPS A/C/Y/W VACCINE Aged Out No longer eligible b ased on patient's age to complete this topic PNEUMOCOCCAL VACCINE Aged Out No long er eligible based on patient's age to complete this topic Insurance MEDICAID [employer] [facility] [place] Care Teams Evaluator Relationship Specialty Start Date End Date Donna Kovacs MD [address] [place] [id number] PCP - General Pediatrics 05/04/16
[2024-12-13 21:11] VITALS: BP 146/93; PULSE 68; RESP 16; TEMP 36.8; O2SAT 98
[2024-12-13 21:53] VITALS: BP 105/83; PULSE 91; RESP 17; O2SAT 98
[2024-12-13] MEDS: ACETAMINOPHEN 325 MG TABLET 650 MG PO (22:01)
--- OUTSIDE RECORDS SUMMARY | 2024-12-13 22:52 | XMS_ITS | Clinical Summary ---
Author Organization [facility] Address [address] [place] [address] Care Team Providers Care It Application Architect Name Role Phone Donna Kovacs MD Primary Care Provider [phone] Source Comments [facility],non-owned Affiliates and Associated Physician Practices is amultiple site organization consisting of ambulatory clinics and hospital sitesin [place], [place], [place] and [place]. This disclosure is being madepursuant to the Care Everywhere program and may not contain all information available regarding this patient. Last updated 18.[facility] [employer] Allergies No known active allergies Medications * [...] on file Legal Sex Female 11:13 AM POT FLUXER Gender Identity Not on file Sexual Orientation Not on file Last Filed Vital Signs Vital Sign Reading Time Taken Comments Blood Pressure 120/80 07/15/2019 9:41 AM POT FLUXER Pulse 84 07/15/2019 9:41 AM POT FLUXER Temperature 37.1 C (98.7 F) 07/15/2019 9:41 AM POT FLUXER Respiratory Rate 15 07/15/2019 9:41 AM POT FLUXER Oxygen Saturation 97% 10/25/2018 11:54 AM CDT Inhaled Oxygen Concentration - - Weight 108.9 kg (240 lb) 07/15/2019 9:41 AM POT FLUXER Height 167.6 cm (5' 6) 07/15/2019 9:41 AM POT FLUXER Body Mass Index 38.74 07/15/2019 9:41 AM POT FLUXER Plan of Treatment Health Maintenance Due Date [...] MEDICAID [employer] [place] Care Teams It Application Architect Relationship Specialty Start Date End Date Donna Kovacs MD [address] [place] [id number] PCP - General Pediatrics 05/04/16
[2024-12-13 23:10] VITALS: BP 114/67; PULSE 91; RESP 19; O2SAT 97
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
== END 2024-12-13 23:10 | disposition home or self-care (01) ==
LOC: ANHED 22:50
PROVIDERS: Emergency Provider Emergency Medicine; PCP Obstetrics & Gynecology
DX: O9A.212 Injury, poisoning and certain other consequences of external causes complicating pregnancy, second trimester (principal); S39.91XA Unspecified injury of abdomen, initial encounter; O99.212 Obesity complicating pregnancy, second trimester; E66.01 Morbid (severe) obesity due to excess calories; Z3A.19 19 weeks gestation of pregnancy; Z77.22 Contact with and (suspected) exposure to environmental tobacco smoke (acute) (chronic); Y04.2XXA Assault by strike against or bumped into by another person, initial encounter; W10.9XXA Fall (on) (from) unspecified stairs and steps, initial encounter
CPT/HCPCS: 99282; A9270

== ENCOUNTER 2025-04-06 14:21 | Outpatient (RCR) | payer OTHER, SELFPAY ==
--- NOTE | ~2025-04-06 | US_ITS ---
EXAM/PROCEDURE: US OB BPP wo non-stress HISTORY: BPP COMPARISON: None available. TECHNIQUE: Directed biophysical profile scoring performed by technologist. FINDINGS: A single viable intrauterine gestation is present with heart rate of 136 bpm Presentation: Vertex Placenta: Posterior with no gross previa or abruption seen. Amniotic fluid volume within normal limits with single pocket measurement of 5.87 m BIOPHYSICAL PROFILE SCORES 8/8. EGA by dates 35 weeks 4 days EDC by dates May 07, 2025 IMPRESSION: Directed examination demonstrating single viable intrauterine gestation with heart rate of 136 bpm and biophysical profile score of 8/8. Reviewed, dictated and finalized at location A. STARTER IMPRESSION: Directed examination demonstrating single viable intrauterine gest ation with heart rate of 136 bpm and biophysical profile score of 8/8.
[2025-04-06 15:48] VITALS: BP 123/68; PULSE 88
== END 2025-05-08 11:35 | disposition other institution (70) ==
LOC: ANHOBOP 14:21
PROVIDERS: Visit Provider Obstetrics & Gynecology
DX: O36.8930 Maternal care for other specified fetal problems, third trimester, not applicable or unspecified (principal); Q27.0 Congenital absence and hypoplasia of umbilical artery; Z3A.35 35 weeks gestation of pregnancy
CPT/HCPCS: 59025; 76819

== ENCOUNTER 2025-05-03 13:00 | Outpatient (CLI) | payer OTHER, SELFPAY ==
[2025-05-03 14:57] LABS: Hematocrit 34.9 % (37.0-47.0); Hemoglobin 11.3 g/dL (12.0-15.0); Mean Corpuscular HGB Conc 32.4 g/dl (32-36); Mean Corpuscular Hemoglobin 28.0 pg (26-34); Mean Corpuscular Volume 86.6 fl (80-100); Platelet Count Result 270 k/mm3 (150-375); Red Blood Count 4.03 M/mm3 (4.2-5.4); White Blood Count 12.5 K/mm3 (4.5-10.0)
[2025-05-03 15:37] LABS: Syphilis IgG/IgM Antibody Non-Reactive (Nonreactive)
== END 2025-05-03 13:01 | disposition home or self-care (01) ==
PROVIDERS: Visit Provider Obstetrics & Gynecology
DX: Z34.93 Encounter for supervision of normal pregnancy, unspecified, third trimester (principal); Z3A.00 Weeks of gestation of pregnancy not specified
CPT/HCPCS: 36415; 85027; 86593; 86850; 86900; 86901

== ENCOUNTER 2025-05-04 10:02 | Inpatient (IN) | payer OTHER, SELFPAY ==
[2025-05-04] VITALS (55 sets, daily range): BP systolic 85–125; BP diastolic 14–78; PULSE 48–99; RESP 12–18; TEMP 36–37.1; O2SAT 84–100; BMI 42.3
[2025-05-04] MEDS: LACTATED RINGERS 1,000 ML 125 ML IV CONT ×3 (10:34→13:25)
[2025-05-04] MEDS: ACETAMINOPHEN 500 MG TABLET 1000 MG PO ×3 (10:34→23:21)
--- NOTE | 2025-05-04 11:18 | WPDANESEPPF ---
Anes - Initial Pre Proc Eval Procedure: Operation Date: 05/04/25 12:00 Proposed Procedures p Repeat Section with Tubal Ligation - Avelino Antonio MD Date/Time: 05/04/25 11:18 Surgeon: Avelino Antonio MD Pre Op Diagnosis: Repeat , desires sterilization Patient Data Age: 24 Gender: F Height: 1.68 m Weight: 119 kg Last Vital Signs Pulse 93 05/04/25 11:15 BP 123/67 05/04/25 11:15 Allergies Allergy/AdvReac Type Severity Reaction Status Date / Time No Known Allergies Allergy Verified 12/13/24 21:13 Home Medications ?Medication ?Instructions ?Recorded ?Confirmed ?Type amoxicillin 875 mg-potassium 1 tablet PO Q12H 7 days #14 tabs 02/01/23 Rx clavulanate 125 mg tablet vitamin-ferrous fumarate tablet PO DAILY 12/13/24 History 40 mg iron-folic acid 1 mg tablet Patient hx anesthesia problems: none Family hx anesthesia problems: none Results Review: All pre-operative results and documents have been reviewed as part of the pre-operative evaluation. [facility] Past Medical History Medical History FGR ( growth retardation) Outlet contraction of pelvis KEENAN (generalized anxiety disorder) MDD (major depressive disorder) GBS (group B streptococcus) infection Obesity, morbid Compound heterozygous MTHFR mutation C677T/V9924S Surgical History Surgical History History of appendectomy Hx of myringotomy Family History Family History Father Diabetes mellitus Hypertension Mother Diabetes mellitus Hypertension Social History Social History Smoking status: Never smoker Second hand tobacco smoke exposure: Yes Substance use: never Living arrangements: with family Occupation/Education: occupation Additional occupation/education comments: [employer] Gender identity (if verbalized by the patient): Female Sexual Orientation (if Verbalized by the Patient): Straight or Heterosexual Spiritual care concerns: No Agree to blood products: Yes Anes - Eval Final PreProcedure Day of Procedure 05/04/25 11:18 Patient weight: morbidly obese Heart: regular rate and rhythm Lungs: clear to auscultation Airway: Mallampati scale class II Neurological: alert and oriented Last oral intake: >/= 8 hours ASA classification: III Emergent: no Anesthetic plan: proceed Anesthesia type and monitoring: regional spinal and standard monitoring Results Review: All pre-operative results and documents have been reviewed as part of the pre-operative evaluation. Informed Consent: The patient's anesthetic plan and its attendant risks and benefits were discussed with the patient/family/POA. Questions were solicited and answers provided to the satisfaction of the patient/family/POA.
--- NOTE | 2025-05-04 11:19 | LDADM ---
This patient, Justine Madrid, was admitted to Labor/Delivery/Recovery 120 on 05/04/25 at 10:02. Plans for labor, pain management and were discussed with patient. Patient/family oriented to hospital policies and general routines including ID bracelet, bed and alarms, visiting hours, pain management, procedures, bathroom and other care routines, personal items, smoking policy, room service/diet and guest tray routines, security routines, and visiting hours. Patient/Family are encouraged to report perceived risks to care and to ask questions if they do not understand what they are told or what they should do. See OBIX for further documentation.
--- OUTSIDE RECORDS SUMMARY | 2025-05-04 11:41 | XMS_ITS | Clinical Summary ---
Author Organization [facility] Address [address] [place] [address] Care Team Providers Care Hydrogenation Operator Name Role Phone Donna Kovacs MD Primary Care Provider Source Comments [facility],non-owned Affiliates and Associated Physician Practices is amultiple site organization consisting of ambulatory clinics and hospital sitesin [place], [place], [place] and [place]. This disclosure is being madepursuant to the Care Everywhere program and may not contain all information available regarding this patient. Last updated 18.[facility] Couple Allergies No known active allergies Medications * [...] on file Legal Sex Female 11:13 AM PUMP STATION OPERATOR Gender Identity Not on file Sexual Orientation Not on file Last Filed Vital Signs Vital Sign Reading Time Taken Comments Blood Pressure 120/80 07/15/2019 9:41 AM PUMP STATION OPERATOR Pulse 84 07/15/2019 9:41 AM PUMP STATION OPERATOR Temperature 37.1 C (98.7 F) 07/15/2019 9:41 AM PUMP STATION OPERATOR Respiratory Rate 15 07/15/2019 9:41 AM PUMP STATION OPERATOR Oxygen Saturation 97% 10/25/2018 11:54 AM CDT Inhaled Oxygen Concentration - - Weight 108.9 kg (240 lb) 07/15/2019 9:41 AM PUMP STATION OPERATOR Height 167.6 cm (5' 6) 07/15/2019 9:41 AM PUMP STATION OPERATOR Body Mass Index 38.74 07/15/2019 9:41 AM PUMP STATION OPERATOR Plan of Treatment Health Maintenance Due Date Last Done Comments HIV SCREENING 2014 HPV VACCINE (1 - 3-dose series) 2014 CHLAMYDIA/GONORRHEA SCREENING 2015 HEPATITIS C SCREENING 07/06/2017 DTAP/TDAP/TD VACCINES (1 - Tdap) 2018 HEPATITIS B VACCINE (1 of 3 - 19+ 3-dose series) 2018 PAP SMEAR 2020 DEPRESSION SCREENING 05/20/2024 COVID-19 VACCINE (2 - 2024-2 6 season) 2025 09/10/2020 INFLUENZA VACCINE (#1) 2025 02/23/2020 ZOSTER VACCINE [...] MEDICAID [employer] [place] Care Teams Hydrogenation Operator Relationship Specialty Start Date End Date Donna Kovacs MD [address] [place] [id number] PCP - General Pediatrics 05/04/16
--- NOTE | 2025-05-04 11:47 | P.HP_ITS ---
H&P: HPI History of Present Illness Date/Time: 05/04/25 11:47 Chief Complaint: repeat c section Narrative: Patient is a 24 year old who presents for repeat c section. Her has been complicated by 2 prior c sections and obesity. She denies strong contractions, leakage of fluid, or vaginal bleeding. She reports good movement. She has also decided to proceed with permanent sterilization at time of her c section. She has completed childbearing and declines reversible contraception. She understands the permanence of the procedure and that it cannot be reversed. Review of Systems Review of Systems: All systems reviewed & are unremarkable except as noted in HPI and below PMFSH Past Medical History Medical History FGR ( growth retardation) Outlet contraction of pelvis KEENAN (generalized anxiety disorder) MDD (major depressive disorder) GBS (group B streptococcus) infection Obesity, morbid Compound heterozygous MTHFR mutation C677T/[id number] Surgical History Surgical History (Updated 05/04/25 @ 11:49 by Avelino Antonio MD) Hx of section History of appendectomy Hx of myringotomy Family History Family History Father Diabetes mellitus Hypertension Mother Diabetes mellitus Hypertension Social History Social History Smoking status: Former smoker Second hand tobacco smoke exposure: No Additional smoking assessment comments: Stopped smoking THC when she became . Substance use: never Lack of Transportation: No Lack of Food: Never True Current Housing: I Have Housing Concerned About Future Housing: No Difficulty Paying Gas/Electric Bills: No Difficulty Paying for Meds: No Currently Unemployed: No Education: High School Diploma/GED Difficulty w/ Childcare or Family Care: No Living arrangements: with family Occupation/Education: occupation Additional occupation/education comments: [employer] Gender identity (if verbalized by the patient): Female Sexual Orientation (if Verbalized by the Patient): Straight or Heterosexual Spiritual care concerns: No Agree to blood products: Yes Meds Home Medications and Allergies Home Medications ?Medication ?Instructions ?Recorded ?Confirmed ?Type amoxicillin 875 mg-potassium 1 tablet PO Q12H 7 days # 14 tabs 02/01/23 Rx clavulanate 125 mg tablet vitamin-ferrous fumarate tablet PO DAILY 11/18 12/11 History 40 mg iron-folic acid 1 mg tablet Allergies Allergy/AdvReac Type Severity Reaction Status Date / Time tree nuts Allergy Intermediate itchy Uncoded 05/04/25 11:21 Vital Signs Vital Signs - 24 hr 05/04/25 10:36 05/04/25 10:45 05/04/25 11:00 Pulse Rate 98 97 88 Blood Pressure 124/64 118/71 125/78 Oxygen Delivery 05/04/25 11:15 05/04/25 11:15 05/04/25 11:30 Pulse Rate 93 90 Blood Pressure 123/67 123/65 Oxygen Delivery Room Air Exam Const: General: cooperative, comfortable and no acute distress Orientation/consciousness: patient oriented x3 HENMT: Head: normal to inspection Eyes: General: appearance normal, both eyes and all related structures Resp: Effort & Inspection: normal respiratory effort Cardio: Rate: regular rate Extrem: General: normal to inspection Psych: Appearance: grossly normal Mental Status: mental status grossly normal Assessment and Plan Assessment and plan (1) Hx of section: Code(s): Z98.891 - History of uterine scar from previous surgery Status: Acute Assessment and Plan: - risks and benefits of repeat c section discussed with patient who voices understanding - would also like to proceed with permanent sterilization at time of c section; risks and benefits of bilateral salpingectomy discussed including that the procedure was not reversible - will proceed with repeat c section and bilateral salpingectomy
[2025-05-04] MEDS: FAMOTIDINE 20 MG/2 ML VIAL IV PUSH (11:50)
[2025-05-04] MEDS: ONDANSETRON INJ 4 MG/2 ML VIAL IV PUSH (11:52)
--- NOTE | 2025-05-04 11:52 | WPDHPUPDATE1 ---
History and Physical Update Update Date/Time: 05/04/25 11:52 History and Physical has been reviewed, including an updated exam of the patient. There are NO changes in the patient's condition. Risks, benefits, and alternatives have been discussed and questions answered. Patient agrees to proceed with procedure.
[2025-05-04] MEDS: ceFAZolin 2 GM in SODIUM CHLORIDE 0.9% IV 50 ML 100 ML IVPB (12:10)
--- NOTE | 2025-05-04 12:50 | S_PTH ---
PATIENT: Justine Madrid LOC: [facility] U#:[id number] AGE/SX: 24/F ROOM: 284 RE05/04/[address]: Sharan Yen MD : 2000 BED: 00 DIS: 05/07/2025 SPEC #: [id number] RECD: 05/05/25 07:18 STATUS: RAMOS REUrsula #: [id number] KAILASH: 05/04/25 12:[address]: Avelino Antonio DEPT: [facility] Surgical RECD BY: Jennifer Johnson ENTERED: 05/05/25 07:18 SP TYPE: Surgical OTHR DR: UNKNOWN,DOCTOR Tissues: A - Fallopian Tube Bilateral Procedures: Gross and Microscopic Level 2 Hematoxylin and Eosin Stain
[2025-05-04] MEDS: OXYTOCIN 30 UNITS/NS 500 ML 30 UNITS/500 ML BAG 125 UNITS IV CONT (13:36)
--- NOTE | 2025-05-04 14:45 | P.PCNOB_ITS ---
OB - Delivery Note Procedure Delivery date: 05/04/25 Pre-op diagnosis: Previous Delivery Post-op Diagnosis: Same Induction method: None Delivery monitor: External FHT Prior to decision for section, ACOG/SMFM labor guidelines were considered and discussed with the patient and staff. Decision made to proceed with the section.: Yes Procedure Performed: Repeat Surgeon: Avelino Antonio MD Anesthesia type: Spinal Description of Procedure/Findings: The patient was taken to the operating room where she was placed in the dorsal supine position with a leftward tilt. The electronic monitor was placed and heart rate was found to be reassuring. She was prepped and draped in the normal sterile fashion, and anesthesia was checked to be adequate. A Pfannensteil skin incision was made with the scalpel and carried through to the underlying layer of fascia with the scalpel. The fascia was incised in the midline and the incision extended laterally with the Canales scissors. The superior aspect of the fascial incision was then grasped with Marcy clamps, elevated, and the underlying rectus muscles dissected off bluntly and with Canales scissors. Attention was then turned to the inferior aspect of the fascial incision, which in similar fashion was grasped, elevated, and the rectus muscles dissected off.? The rectus muscles were then in the midline, and the peritoneum entered using two Peans and Metzenbaum scissors. The peritoneal incision was extended superiorly and inferiorly with good visualization of the bladder. The bladder blade was then inserted and the vesicouterine peritoneum identified, grasped with a Peon clamp, and entered sharply with the Metzenbaum scissors. The incision was extended laterally and the bladder flap created digitally. With the bladder blade providing retraction and visualization, the lower uterine segment was incised in a transverse fashion with the scalpel. The uterine incision was then extended laterally. The bladder blade was removed and the 's head was elevated and delivered atraumatically. The remainder of the was then delivered without difficulty, and the infant's nose and mouth were suctioned with the bulb suction. The umbilical cord was doubly clamped and cut. The was then handed off to the waiting nursing staff. Specimens then obtained as listed below. The placenta was then removed manually and the uterus was exteriorized and silvana ared of all clots and debris. The uterine incision was repaired with 0-Monocryl in a running, interlocked fashion. A bilateral salpingectomy was performed by grasping the right fallopian tube with a L[place]leton and transecting the mesosalpinx using the Ligasure device. The tube was removed to the cornua of the uterus. The same procedure was performed on the left side. The posterior cul-de-sac was manu ally cleared of all clots and debris. The uterus was returned to the abdomen. The gutters were then manually cleared of all clots and debris.? The uterine incision was visualized to be hemostatic. The fascia was reapproximated with 0- Vicryl in a running fashion. The subcutaneous tissues were irrigated with warmed normal saline, and hemostasis was assured. The skin was closed with 4-0 monocryl in a running subcuticular stitch. Fundal pressure was applied to express remaining intrauterine clots and debris. The patient tolerated the procedure well. Sponge, lap, and needle counts were correct times three per nursing. The patient was taken to the recovery room in stable condition. Specimen: Yes Estimated Blood Loss: 470 Pathology: Yes Complications: No immediate complications Condition: Stable Disposition: Floor Baby Date of : 05/04/25 Gestational Age by Date: 39 Infant gender: Male Weight (pounds): 8 Weight (ounces): 8 presentation: vertex position: Left Occiput Anterior Placenta delivery description: Expressed Cord Vessel Description: 3 Vessels and Delayed Cord Clamping
--- NOTE | 2025-05-04 16:17 | PC.NURSE ---
Patient transported to room 284. Ale-pads changed under patient. Report given to nurse [place].
--- NOTE | 2025-05-04 16:49 | OBPPTRN ---
Patient transferred to post room #284 via stretcher. Support person present. Oriented to unit, room, information board, rooming in, admission packet and security measures. Patient verbalizes understanding.
[2025-05-04] MEDS: KETOROLAC 15 MG/ML VIAL (*BKC) IV PUSH ×2 (16:57→23:21)
[2025-05-04] MEDS: SIMETHICONE 80 MG TAB.CHEW PO (16:57)
[2025-05-04] MEDS: DOCUSATE SODIUM 100 MG CAPSULE PO (16:57)
[2025-05-04] MEDS: DEXTROSE 5%/0.45% SOD CHL 1,000 ML 125 ML (18:22)
[2025-05-04] MEDS: oxyCODONE HCL (*CRX) 5 MG TAB IR PO (22:05)
[2025-05-05 05:21] LABS: Hematocrit 32.2 % (37.0-47.0); Hemoglobin 10.5 g/dL (12.0-15.0); Immature Granulocyte Percent A 0.5 % (0-0.5); Lymphocytes Absolute Auto 2.85 K/mm3 (0.9-3.2); Mean Corpuscular HGB Conc 32.6 g/dl (32-36); Mean Corpuscular Hemoglobin 28.0 pg (26-34); Mean Corpuscular Volume 85.9 fl (80-100); Nucleated Red Blood Cells Absolute Auto 0.000 K/mm3 (0.0-0.012); Nucleated Red Blood Cells Perc 0.0 % (0.0-0.2); Platelet Count Result 228 k/mm3 (150-375); Red Blood Count 3.75 M/mm3 (4.2-5.4); White Blood Count 13.0 K/mm3 (4.5-10.0)
[2025-05-05] MEDS: KETOROLAC 15 MG/ML VIAL (*BKC) IV PUSH (05:39)
[2025-05-05] MEDS: ACETAMINOPHEN 500 MG TABLET 1000 MG PO ×3 (05:40→17:56)
[2025-05-05 07:50] VITALS: BP 117/76; PULSE 78; RESP 14; TEMP 36.4; O2SAT 97
--- NOTE | 2025-05-05 08:14 | P.PNOB_ITS ---
OB - PN: Subj Subjective Date/time seen: 05/05/25 08:14 Interval history: pp day 1 voiding without difficult no flatus yet OB - PN: Obj Data Labs 05/05/25 03:15 Labs: Laboratory Results - last 24 hr 05/05/25 03:15 WBC 13.0 H RBC 3.75 L Hgb 10.5 L Hct 32.2 L MCV 85.9 MCH 28.0 MCHC 32.6 RDW 13.8 Plt Count 228 MPV 11.5 H Immature Gran % (Auto) 0.5 Neut % (Auto) 69.6 Lymph % (Auto) 21.9 [place] % (Auto) 7.3 Eos % (Auto) 0.4 Baso % (Auto) 0.3 Lymph # (Auto) 2.85 [place] # (Auto) 1.0 H Eos # (Auto) 0.1 Baso # (Auto) 0.0 Abs Immat Gran (auto) 0.06 H Absolute Neuts (auto) 9.1 H Absolute Nucleated RBC 0.000 Nucleated RBC % 0.0 OB - PN A/P Plan day: 1 Plan: routine care Time Spent With Patient Time: Total time spent is greater than 50% in coordination of care (as documented) at patient's floor/unit and/or counseling patient: Review of Systems 2 Review of Systems: All systems reviewed & are unremarkable except as noted in HPI and below Exam 2 Const: General: cooperative and healthy appearing Resp: Effort & Inspection: normal respiratory effort Cardio: Rate: regular rate GI: Other: incision CDI
[2025-05-05] MEDS: DOCUSATE SODIUM 100 MG CAPSULE PO ×2 (09:04→15:57)
[2025-05-05] MEDS: SIMETHICONE 80 MG TAB.CHEW PO ×3 (09:04→15:57)
[2025-05-05] MEDS: MULTIVIT/MIN/PREN/FOL AC/IRON TABLET 1 TAB PO (09:05)
[2025-05-05] MEDS: oxyCODONE HCL (*CRX) 5 MG TAB IR PO (09:16)
[2025-05-05 11:20] VITALS: BP 106/70; PULSE 75; RESP 14; TEMP 36.6; O2SAT 98
[2025-05-05] MEDS: IBUPROFEN 600 MG TABLET PO ×2 (11:45→17:54)
[2025-05-05] MEDS: oxyCODONE HCL (*CRX) 5 MG TAB IR 10 MG PO ×2 (14:03→20:13)
[2025-05-05] MEDS: LIDOCAINE 5% PATCH 1 PATCH TRANSDERM (14:04)
--- NOTE | 2025-05-05 17:33 | WPDANLDPN2 ---
Anes-Prog Note L&D Date/Time: 05/05/25 17:33 Comfortable throughout: section Neuraxial method: spinal Epidural/Spinal procedure site: clean & non-tender Neuro status: Neuro function grossly intact. Cardiovascular status: normal Respiratory status: normal Airway patency: baseline Mental status: baseline Post-Op hydration status: normal Vital Signs: Last Vital Signs Temp 97.9 F 05/05/25 11:20 Pulse 75 05/05/25 11:20 Resp 14 05/05/25 11:20 BP 106/70 05/05/25 11:20 Pulse Ox 98 05/05/25 11:20 O2 Del Method Room Air 05/04/25 23:10 Pain score (VAS): 0/10 I/O: Intake & Output 05/05/25 05/05/25 05/05/25 07:59 15:59 23:59 Intake Total 100 Balance 100 Post-procedural complaints: none Patient feedback: Patient satisfied with anesthetic care.
--- NOTE | 2025-05-05 17:34 | WPDANLDNPN2 ---
Anes-Prog Note L&D-Neuraxial Date/Time: 05/05/25 17:34 Neuraxial medications: intrathecal PF morphine Opiod-related complaints: none Patient feedback: Patient satisfied with post-operative pain management.
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
[2025-05-05 19:48] VITALS: BP 97/69; PULSE 94; RESP 18; TEMP 36.1; O2SAT 100
[2025-05-06] MEDS: ACETAMINOPHEN 500 MG TABLET 1000 MG PO ×5 (00:07→23:52)
[2025-05-06] MEDS: IBUPROFEN 600 MG TABLET PO ×5 (00:07→23:51)
[2025-05-06 08:00] VITALS: BP 110/53; PULSE 68; RESP 12; TEMP 36.3; O2SAT 99
[2025-05-06] MEDS: DOCUSATE SODIUM 100 MG CAPSULE PO ×2 (08:15→16:49)
[2025-05-06] MEDS: SIMETHICONE 80 MG TAB.CHEW PO ×3 (08:15→16:49)
--- NOTE | 2025-05-06 08:47 | P.PNOB_ITS ---
OB - PN: Subj Subjective Date/time seen: 05/06/25 08:47 Interval history: pp day 1 voiding without difficult no flatus yet Patient comments: no complaints, pain well controlled, incisional pain, tolerating diet and flatus present OB - PN: Obj Data Labs 05/05/25 03:15 OB - PN A/P Plan day: 2 Plan: routine care Comments: POD#2 LTCS - no problems, Time Spent With Patient Time: Total time spent is greater than 50% in coordination of care (as documented) at patient's floor/unit and/or counseling patient: Exam 2 Const: General: comfortable, no acute distress and alert Resp: Effort & Inspection: normal respiratory effort Auscultation: no crackles, no rales and no rhonchi Cardio: Rate: regular rate Heart sounds: no click, no murmurs and no rubs GI: Inspection: non-distended Auscultation: normal bowel sounds Other: Incision - CDI Extrem: General: normal to inspection, no pedal edema and no calf tenderness
--- NOTE | 2025-05-06 08:47 | PM.OBDSVD ---
DS: Admitting Diagnosis Discharge Date 05/06/2020 Admitting Diagnosis Term DS: Discharge Diagnosis Discharge Diagnosis (1) delivery delivered: Code(s): O82 - Encounter for delivery without indication Status: Acute OB - DS: Summary OB Procedures : None OB Procedures Intrapartum: Spontaneous Vag Delivery OB Procedures: : None Peripartum Data Procedures: Procedures Operation Date: 05/04/25 12:00 Actual Procedure Side Surgeon p Repeat Section with Tubal Ligation Not Applicable Avelino Antonio MD Time Spent with Patient Time attestation: Total time spent providing and/or coordinating discharge services: DS: Data Data Completed and Pending Pending studies at discharge: Pending at discharge 05/04/25 12:50 Surgical [PTH] Routine Discharge Plan Discharge Discharging Clinician: Sharan Yen Patient Disposition: Home Activity: pelvic rest Diet: regular Patient Instructions: Antibiotic Form Patient Language: Palestinian Stand Alone Forms: General Discharge Information Follow-up/Referrals: Sharan Yen MD [Physician, PURIFICATION DIRECTOR] Discharge Medications: Continued amoxicillin-pot clavulanate 875-125 mg tablet 1 tablet PO Q12H 7 Days Qty: 14 0RF (w/o vit A)-Fe fum-FA 40 mg iron-1 mg tablet PO DAILY Date of admission: 05/04/25 10:02 Primary Care Provider: UNKNOWN,DOCTOR Admitting Provider: Avelino Antonio Attending physician on admission: Avelino Antonio Condition: Stable
[2025-05-06] MEDS: oxyCODONE HCL (*CRX) 5 MG TAB IR PO ×2 (10:50→16:50)
[2025-05-06 20:06] VITALS: BP 129/70; PULSE 78; RESP 18; TEMP 36.9; O2SAT 99
[2025-05-07] MEDS: IBUPROFEN 600 MG TABLET PO ×2 (07:03→13:20)
[2025-05-07] MEDS: ACETAMINOPHEN 500 MG TABLET 1000 MG PO ×2 (07:03→13:20)
[2025-05-07 07:25] VITALS: BP 120/71; PULSE 63; RESP 16; TEMP 36.6; O2SAT 97
[2025-05-07] MEDS: oxyCODONE HCL (*CRX) 5 MG TAB IR PO ×2 (08:45→13:22)
[2025-05-07] MEDS: SIMETHICONE 80 MG TAB.CHEW PO (08:46)
[2025-05-07] MEDS: DOCUSATE SODIUM 100 MG CAPSULE PO (08:46)
[2025-05-07] MEDS: MULTIVIT/MIN/PREN/FOL AC/IRON TABLET 1 TAB PO (08:46)
--- NOTE | 2025-05-07 09:12 | P.PNOB_ITS ---
OB - PN: Subj Subjective Date/time seen: 05/07/25 09:12 Interval history: pp day 3 voiding without difficulty having BM Tolerating general diet Ready for discharge home OB - PN: Obj Data Labs 05/05/25 03:15 OB - PN A/P Assessment and Plan (1) delivery delivered: Code(s): O82 - Encounter for delivery without indication Status: Acute (2) Status post bilateral salpingectomy: Code(s): Z90.79 - Acquired absence of other genital organ(s) Status: Acute Plan day: 3 Plan: routine care and discharge home Time Spent With Patient Time: Total time spent is greater than 50% in coordination of care (as documented) at patient's floor/unit and/or counseling patient: Review of Systems 2 Review of Systems: All systems reviewed & are unremarkable except as noted in HPI and below Exam 2 Const: General: comfortable and no acute distress O rientation/consciousness: patient oriented x3 Resp: Effort & Inspection: normal respiratory effort GI: Other: incision c/d/i
--- NOTE | 2025-05-07 13:00 | PC.NURSE ---
Patient viewed the discharge video Mother & Baby Care, The First Two Weeks. Patient was given the opportunity and encouraged to ask questions. Patient verbalized understanding of information shared and has been given the mother/baby guide for home reference.
== END 2025-05-07 13:48 | disposition home or self-care (01) | DRG 539 ==
LOC: ANHLDR 10:58 → ANHOB2 05-05 13:54 → ANHLDR 05-10 10:17 → ANHOB2 05-10 10:17
PROVIDERS: Admitting Provider Obstetrics & Gynecology; Visit Provider Obstetrics & Gynecology
PROC: 10D00Z1 Extraction of Products of Conception, Low, Open Approach (ICD-10-PCS; CPT 59514; principal; 2025-05-04 12:00)
DX: O34.211 Maternal care for low transverse scar from previous cesarean delivery (principal); Z3A.39 39 weeks gestation of pregnancy; Z37.0 Single live birth; O99.214 Obesity complicating childbirth; E66.01 Morbid (severe) obesity due to excess calories; Z30.2 Encounter for sterilization
CPT/HCPCS: 36415; 85025; 88302; J0690; A9270; J1885; J2274; J2371; J2405; J2590; J7120